=== PATIENT | male | born 1965 | race Caucasian/White ===

== ENCOUNTER 2020-03-23 11:06 | Emergency (ER) | payer BC ==
--- NOTE | 2020-03-23 12:55 | EDM.PDOC ---
ED HPI GENERAL MEDICAL PROBLEM - General Chief Complaint: Gastrointestinal Problem Stated Complaint: BLEEDING RECTUM Time Seen by Provider: 03/23/20 11:15 Source of Information: Reports: Patient History Limitations: Reports: No Limitations - History of Present Illness INITIAL COMMENTS - FREE TEXT/NARRATIVE: HISTORY AND PHYSICAL: History of present illness: Patient is a 54-year-old male who presents emergency room today with concern of a bleeding hemorrhoid that started 1 to 2 days ago. Patient states that he has issues with hemorrhoids in the past and currently he has multiple hemorrhoids at this time. 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 Patient states because of this, he has a tendency to have frequent hemorrhoids. Patient states that 1 to 2 days ago he had a hemorrhoid that "popped "and states he initially had some heavier bleeding which quickly resolved. Patient states that his had bought him [id number] hydrocortisone wipes and he used a wipe today and noticed that the bleeding started again so came to the emergency room to have this further evaluated as he felt it was more blood than usual, although states the bleeding has now nearly stopped since arriving to the ED. Patient denies fever, chills, chest pain, shortness of breath, or cough. Denies headache, neck stiff ness, change in vision, syncope, or near syncope. Denies nausea, vomiting, abdominal pain, diarrhea, constipation, or dysuria. Has not noted any blood in urine or stool. Patient has been eating and drinking appropriately. Review of systems: As per history of present illness and below otherwise all systems reviewed and negative. Past medical history: As per history of present illness and as reviewed below otherwise noncontributory. Surgical history: As per history of present illness and as reviewed below otherwise noncontributory. Social history: See social history for further information Family history: As per history of present illness and as reviewed below otherwise noncontributory. Physical exam: General: Patient is alert, oriented, and in no acute distress. Patient sitting comfortably on exam table. Vitals stable and reviewed by me. HEENT: Atraumatic, normocephalic, pupils equal and reactive bilaterally, negative for conjunctival pallor or scleral icterus, mucous membranes moist, TMs normal bilaterally, throat clear, neck supple, nontender, trachea midline. No drooling or trismus noted. No meningeal signs. No hot potato voice noted. Lungs: Clear to auscultation, breath sounds equal bilaterally, chest nontender. Heart: S1S2, regular rate and rhythm without overt murmur Abdomen: Soft, nondistended, nontender. Negative for masses or hepatosplenomegaly. Negative for costovertebral tenderness. Pelvis: Stable nontender. Genitourinary: Deferred. Rectal: Construction Teacher at bedside Soraya Perez. There are 3 obvious hemorrhoids externally, one appears partially thrombosed with pain to palpation. The smaller of the hemorrhoids is clearly visualized with a small trickle of bright red blood seen coming from the smaller hemorrhoid. Rectal tone intact. Hemoccult positive. There is also an internal hemorrhoid noted with pain. Skin: Intact, warm, dry. No lesions or rashes noted. Extremities: Left UE and left LE are drastically larger than the comparative right. This is congenital per baseline according to patient. Otherwise, Atraumatic, negative for cords or calf pain. Neurovascular unremarkable. Neuro: Awake, alert, oriented. Cranial nerves II through XII unremarkable. Cerebellum unremarkable. Motor and sensory unremarkable throughout. Exam nonfocal. Notes: Patient does have a Hemoccult positive exam but has obvious source of bleeding due to hemorrhoids. Throughout stay in ED, patient appears comfortable on exam and vitally stable. Discussed the importance for follow up with a PCP/General surgery. Signs and symptoms that would prompt return to the ED thoroughly discussed with patient. Voices understanding and is agreeable to plan of care. Denies any further quest ions or concerns at this time. Diagnostics: CBC, CMP, Hemoccult Therapeutics: None Prescription: Hydrocortisone/lidocaine topical cream Impression: Hemorrhoids, multiple Plan: 1. Apply medication to affected area as prescribed and as discussed. 2. Follow-up with a primary care provider/general surgeon as discussed. 3. You can also use Tylenol as directed for pain and discomfort. Return to the ED as needed and as discussed. Definitive disposition and diagnosis as appropriate pending reevaluation and review of above. rectal Pain Score (Numeric/FACES): 2 - Related Data Allergies Allergy/AdvReac Type Severity Reaction Status Date / Time No Known Allergies Allergy Verified 03/23/20 12:07 Home Meds: Home Meds . [No Known Home Meds] 03/23/20 [History] Past Medical History Gastrointestinal History: Reports: Hemorrhoids - Past Surgical History Other Musculoskeletal Surgeries/Procedures:: left knee surgery, left ankle surgery, left index surgery, and right 2 finger surgery Social & Family History - Tobacco Use Tobacco Use Status *Q: Never Tobacco User - Recreational Drug Use Recreational Drug Use: No ED ROS GENERAL - Review of Systems Review Of Systems: Comprehensive ROS is negative, except as noted in HPI. ED EXAM, GENERAL - Physical Exam Exam: See Below (see dictation) Course - Vital Signs Last Recorded V/S: Last Vital Signs Temp 98 F 03/23/20 12:09 Pulse 56 L 03/23/20 13:20 Resp 16 03/23/20 13:20 BP 148/93 H 03/23/20 13:20 Pulse Ox 98 03/23/20 13:20 - Orders/Labs/Meds Labs: Laboratory Tests 03/23/20 03/23/20 Range/Units 12:26 12:26 WBC 8.02 (4.0-11.0) K/uL RBC 5.32 (4.50-5.90) M/uL Hgb 16.4 (13.0-17.0) g/dL Hct 48.7 (38.0-50.0) % MCV 91.5 (80.0-98.0) fL MCH 30.8 (27.0-32.0) pg MCHC 33.7 (31.0-37.0) g/dL RDW Std Deviation 42.5 (28.0-62.0) fl RDW Coeff of Linda 13 (11.0-15.0) % Plt Count 184 (150-400) K/uL MPV 10.20 (7.40-12.00) fL Neut % (Auto) 61.7 (48.0-80.0) % Lymph % (Auto) 30.2 (16.0-40.0) % [place] % (Auto) 5.7 (0.0-15.0) % Eos % (Auto) 2.0 (0.0-7.0) % Baso % (Auto) 0.4 (0.0-1.5) % Neut # (Auto) 5.0 (1.4-5.7) K/uL Lymph # (Auto) 2.4 (0.6-2.4) K/uL [place] # (Auto) 0.5 (0.0-0.8) K/uL Eos # (Auto) 0.2 (0.0-0.7) K/uL Baso # (Auto) 0.0 (0.0-0.1) K/uL Nucleated RBC % 0.0 /100WBC Nucleated RBCs # 0 K/uL Sodium 136 (136-148) mmol/L Potassium 4.2 (3.5-5.1) mmol/L Chloride 102 (98-107) mmol/L Carbon Dioxide 28.3 (21.0-32.0) mmol/L BUN 17 (7.0-18.0) mg/dL Creatinine 0.9 (0.8-1.3) mg/dL Est Cr Clr Drug Dosing 102.99 mL/min Estimated GFR (MDRD) > 60.0 ml/min Glucose 173 H (74-106) mg/dL Calcium 9.0 (8.5-10.1) mg/dL Total Bilirubin 0.7 (0.2-1.0) mg/dL AST 9 L (15-37) IU/L ALT 18 (14-63) IU/L Alkaline Phosphatase 71 (46-116) U/L Total Protein 7.3 (6.4-8.2) g/dL Albumin 3.8 (3.4-5.0) g/dL Globulin 3.5 (2.6-4.0) g/dL Albumin/Globulin Ratio 1.1 (0.9-1.6) Departure - Departure Time of Disposition: 21:34 Disposition: Home, Self-Care 01 Clinical Impression: Hemorrhoid Qualifiers: Hemorrhoid type: unspecified Qualified Code(s): K64.9 - Unspecified hemorrhoids - Discharge Information Instructions: Hemorrhoids, [id number] Referrals: PCP,None [Primary Care Provider] - Forms: ED Department Discharge Additional Instructions: 0 the following information is given to patients seen in the emergency department who are being discharged to home. This information is to outline your options for follow-up care. We provide all patients seen in our emergency department with a follow-up referral. The need for follow-up, as well as the timing and circumstances, are variable depending upon the specifics of your emergency department visit. If you don't have a primary care physician on staff, we will provide you with a referral. We always advise you to contact your personal physician following an emergency department visit to inform them of the circumstance of the visit and for follow-up with them and/or the need for any referrals to a consulting specialist. The emergency department will also refer you to a specialist when appropriate. This referral assures that you have the opportunity for follow-up care with a specialist. All of these measure are taken in an effort to provide you with optimal care, which includes your follow-up. Under all circumstances we always encourage you to contact your private physician who remains a resource for coordinating your care. When calling for follow-up care, please make the office aware that this follow-up is from your recent emergency room visit. If for any reason you are refused follow-up, please contact the [facility] Emergency Department at and asked to speak to the emergency department charge nurse. [facility] [address] [place] [address] [id number] [address] [address] [facility] - General [facility] Professional [facility] [address] [place] [address], [address] [place] [address] 1. Apply medication to affected area as prescribed and as discussed. 2. Follow-up with a primary care provider/general surgeon as discussed. 3. You can also use Tylenol as directed for pain and discomfort. Return to the ED as needed and as discussed. Sepsis Event Note (ED) - Evaluation Sepsis Screening Result: No Definite Risk - Focused Exam Vital Signs: Vital Signs Temp Pulse Resp BP Pulse Ox 03/23/20 13:20 56 L 16 148/93 H 98 03/23/20 12:09 98 F 51 L 18 159/82 H 97
[2020-03-23 13:01] LABS: BLOOD UREA NITROGEN,BUN 17 mg/dL (7.0-18.0); CARBON DIOXIDE,CO2 28.3 mmol/L (21.0-32.0); CHLORIDE,CL 102 mmol/L (98-107); GLUCOSE RANDOM 173 mg/dL (74-106); POTASSIUM,K 4.2 mmol/L (3.5-5.1); SODIUM,NA 136 mmol/L (136-148)
== END 2020-03-23 13:22 | disposition home or self-care (01) ==
LOC: MW.ED 11:06
DX: K64.4 Residual hemorrhoidal skin tags (principal)
CPT/HCPCS: 36415; 80053; 85025; 99283

== ENCOUNTER 2021-01-23 18:44 | Inpatient (IN) | payer BC ==
[2021-01-23] MEDS ORDERED: Sodium Chloride 0.9% 2.5 ML Syringe FLUSH PRN (18:45)
[2021-01-23] MEDS ORDERED: Sodium Chloride 0.9% 10 ML Syringe FLUSH PRN (18:45)
--- NOTE | 2021-01-23 18:50 | EDM.PDOC ---
<Allen Kendrick - Last Filed: 01/23/21 18:52> ED HPI GENERAL MEDICAL PROBLEM - General Chief Complaint: Respiratory Problem Stated Complaint: EMS ARRIVAL Time Seen by Provider: 01/23/21 19:00 - History of Present Illness INITIAL COMMENTS - FREE TEXT/NARRATIVE: History of present illness: [] Patient had a dry cough for 3 or 4 days. He lost his taste a day or 2 ago. Today he suddenly got short of breath. He has had a past history of pulmonary embolus. He also has 1 leg bigger than the other with the left being larger chronically. He is not on blood thinners for years post pulmonary embolus. The patient has no fever sweats chills. His oxygen saturation was 50. He was given albuterol treatment and 100% nonrebreather oxygen and his sats came up in the 70s. He was not able to talk any complete sentence at first but now is able to talk after the albuterol treatment and oxygen. Review of systems: As per history of present illness and below otherwise all systems reviewed and negative. Past medical history: As per history of present illness and as reviewed below otherwise noncontributory. Surgical history: As per history of present illness and as reviewed below otherwise noncontribu tory. Social history: No reported history of drug or alcohol abuse. Family history: As per history of present illness and as reviewed below otherwise noncontributory. Physical exam: Constitutional -morbidly obese. Well developed, well-nourished and in no acute distress HEENT - normocephalic, no evidence of trauma - external nose and mouth normal - no mass in neck and no JVD - mucosae moist EYES - full EOM, PERRL, no icterus - no evidence of inflammation, injection, or drainage Respiratory -mild respiratory distress, equal bilateral expansion, lungs finished Cardiovascular - Regular Rhythm with S1 and S2 appreciated and no murmur, gallop or rub. GI - abdomen soft without distension or organomegaly - normal bowel sounds - no guard or rebound Musculoskeletal no gross deformity of long bones or joints - no tenderness, but there is significant edema in both lower extremities with the left leg quite a bit larger than the right. Neurologic - Alert and oriented times four - CN II-XII grossly intact - motor sensory and coordination symmetrically normal Psychiatric - appropriate mood and affect with normal thought content Hematologic - No petechiae or purpura - mucosa appropriate color and sclera not pale - normal nail bed color and refill Integument - no rash or evidence of trauma - normal turgor Diagnostics: [] Therapeutics: [] Impression: [] Plan: [] Definitive disposition and diagnosis as appropriate pending reevaluation and review of above. - Related Data Allergies Allergy/AdvReac Type Severity Reaction Status Date / Time No Known Allergies Allergy Verified 03/23/20 12:07 Home Meds: Home Meds . [No Known Home Meds] 03/23/20 [History] Past Medical History Gastrointestinal History: Reports: Hemorrhoids - Past Surgical History Other Musculoskeletal Surgeries/Procedures:: left knee surgery, left ankle surgery, left index surgery, and right 2 finger surgery ED ROS GENERAL - Review of Systems Review Of Systems: Comprehensive ROS is negative, except as noted in HPI. ED EXAM, GENERAL - Physical Exam Exam: See Below Free Text/Narrative:: My physical exam is in the HPI Course - Vital Signs Text/Narrative:: Patient will be a difficult intubation. He arrived at shift change. He has not failed BiPAP. Turned over to my partner Dr. Terry. Departure - Departure Disposition: Admitted As Inpatient 66 Clinical Impression: COVID-19 - Discharge Information Referrals: PCP,None [Primary Care Provider] - Forms: ED Department Discharge <Timothy Terry - Last Filed: 01/24/21 05:07> ED HPI GENERAL MEDICAL PROBLEM - General Source of Information: Reports: Patient, EMS History Limitations: Reports: Respiratory Distress #1 Interpretation EKG Date: 01/23/21 Time: 18:48 Rhythm: NSR Rate (Beats/Min): 127 [place]: Normal P-Wave: Present QRS: Normal ST-T: Normal QT: Normal NV/PQ Interval: 75 Comparison: NA - No Prior EKG EKG Interpretation Comments: sinus tachycardia #2 Interpretation EKG Date: 01/24/21 Time: 02:10 Rhythm: NSR Rate (Beats/Min): 95 [place]: Normal P-Wave: Present QRS: Normal ST-T: Normal QT: Normal NV/PQ Interval: 150 EKG Interpretation Comments: frequent PVCs; no acute ischemic changes Course - Vital Signs Last Recorded V/S: Last Vital Signs Temp 99.9 F 01/23/21 19:01 Pulse 87 01/24/21 03:55 Resp 32 H 01/24/21 03:55 BP 147/81 H 01/24/21 03:55 Pulse Ox 91 L 01/24/21 03:55 - Orders/Labs/Meds Orders: Active Orders 24 hr Category Date Time Status Patient Status [ADT] Routine ADT 01/24/21 05:03 Ordered Blood Glucose Check, Bedside [RC] Q1HR Care 01/24/21 05:30 Active Cardiac Monitoring [RC] . DIRECTED Care 01/23/21 18:45 Active Pulse Oximetry [RC] ASDIRECTED Care 01/23/21 18:45 Active CULTURE BLOOD [BC] Stat Lab 01/23/21 19:20 Received CULTURE BLOOD [BC] Stat Lab 01/23/21 19:36 Received GLYCOSYLATED HEMOGLOBIN,HGBA1C [CHEM] Stat Lab 01/24/21 03:42 Ordered PTT,PARTIAL THROMBOPLSTIN TIME [COAG] Stat Lab 01/24/21 06:00 Ordered Dextrose 50% in Water Med 01/23/21 19:57 Active 50 ml IVPUSH ASDIRECTED PRN Dextrose 50% in Water Med 01/24/21 01:10 Active 50 ml IVPUSH ASDIRECTED PRN Dextrose 50% in Water Med 01/24/21 03:34 Active 50 ml IVPUSH ASDIRECTED PRN Glucagon,Human Recombinant [GlucaGen] Med 01/23/21 19:57 Active 1 mg IM ASDIRECTED PRN Glucagon,Human Recombinant [GlucaGen] Med 01/24/21 01:10 Active 1 mg IM ASDIRECTED PRN Glucagon,Human Recombinant [GlucaGen] Med 01/24/21 03:34 Active 1 mg IM ASDIRECTED PRN Heparin Sodium/0.45% NaCl [Heparin 25,000 Units in 1/2 Med 01/23/21 20:00 Active NS 500 ML] 500 ml IV TITRATE Insulin Regular in 0.9 % NACL [Myxredlin in NS 100 UNIT Med 01/24/21 04:00 Active /100 ML] 100 ml IV TITRATE Sodium Chloride 0.9% [Normal Saline] 1,000 ml Med 01/23/21 21:34 Active IV .Bolus Blood Culture x2 Reflex Set [OM.PC] Stat Oth 01/23/21 19:02 Ordered Saline Lock Insert [OM.PC] Stat Oth 01/23/21 18:45 Ordered Medication Orders Dextrose/Water (50% Dextrose In Water 50 Ml Syringe) 50 ml IVPUSH ASDIRECTED PRN PRN Reason: Hypoglycemia Dextrose/Water (50% Dextrose In Water 50 Ml Syringe) 50 ml IVPUSH ASDIRECTED PRN PRN Reason: Hypoglycemia Dextrose/Water (50% Dextrose In Water 50 Ml Syringe) 50 ml IVPUSH ASDIRECTED PRN PRN Reason: Hypoglycemia Glucagon (Glucagon,Human Recombinant 1 Mg Vial) 1 mg IM ASDIRECTED PRN PRN Reason: Hypoglycemia Glucagon (Glucagon,Human Recombinant 1 Mg Vial) 1 mg IM ASDIRECTED PRN PRN Reason: Hypoglycemia Glucagon (Glucagon,Human Recombinant 1 Mg Vial) 1 mg IM ASDIRECTED PRN PRN Reason: Hypoglycemia Heparin Sodium/Sodium Chloride (Heparin 25,000 Units In 1/2 Ns 500 Ml) 500 mls @ 37.776 mls/hr IV TITRATE JOSE FRANCISCO; Protocol Last Admin: 01/23/21 21:07 Dose: 12 units/kg/hr, 37.776 mls/hr Documented by: HIWOT Cosigned by: CLAUDIO Sodium Chloride (Normal Saline) 1,000 mls @ 125 mls/hr IV .Bolus ONE Stop: 01/24/21 05:33 Last Admin: 01/23/21 21:41 Dose: 125 mls/hr Documented by: CLAUDIO Insulin Regular in 0.9 % NACL (Myxredlin In Ns 100 Unit/100 Ml) 100 mls @ 15.74 mls/hr IV TITRATE JOSE FRANCISCO; Protocol Last Admin: 01/24/21 04:24 Dose: 0.1 units/kg/hr, 15.74 mls/hr Documented by: Labs: Laboratory Tests 01/23/21 01/23/21 01/23/21 Range/Units 18:51 18:55 19:20 WBC 7.82 (4.0-11.0) K/uL RBC 5.57 (4.50-5.90) M/uL Hgb 17.3 H (13.0-17.0) g/dL Hct 47.3 (38.0-50.0) % MCV 84.9 (80.0-98.0) fL MCH 31.1 (27.0-32.0) pg MCHC 36.6 (31.0-37.0) g/dL RDW Std Deviation 39.8 (28.0-62.0) fl RDW Coeff of Linda 13 (11.0-15.0) % Plt Count 126 L (150-400) K/uL MPV 11.60 (7.40-12.00) fL Neut % (Auto) 87.0 H (48.0-80.0) % Lymph % (Auto) 9.1 L (16.0-40.0) % Morgan % (Auto) 3.8 (0.0-15.0) % Eos % (Auto) 0.0 (0.0-7.0) % Baso % (Auto) 0.1 (0.0-1.5) % Neut # (Auto) 6.8 H (1.4-5.7) K/uL Lymph # (Auto) 0.7 (0.6-2.4) K/uL Morgan # (Auto) 0.3 (0.0-0.8) K/uL Eos # (Auto) 0.0 (0.0-0.7) K/uL Baso # (Auto) 0.0 (0.0-0.1) K/uL Nucleated RBC % 0.0 /100WBC Nucleated RBCs # 0 K/uL INR APTT (18.6-31.3) SEC D-Dimer, Quantitative (0.0-0.50) mg/L FEU ABG pH 7.49 H (7.35-7.45) ABG pCO2 26 L (35-45) mmHG ABG pO2 33 L* (80-105) mmHG ABG HCO3 20 L (22-26) mEq/L ABG Total CO2 17.3 L (23-27) mmol/L ABG Base Excess -1.2 (-2.0-3.0) Sodium (136-148) mmol/L Potassium (3.5-5.1) mmol/L Chloride (98-107) mmol/L Carbon Dioxide (21.0-32.0) mmol/L BUN (7.0-18.0) mg/dL Creatinine (0.8-1.3) mg/dL Est Cr Clr Drug Dosing mL/min Estimated GFR (MDRD) ml/min Glucose (74-106) mg/dL POC Glucose (70-99) mg/dL Lactic Acid (0.4-2.0) mmol/L Calcium (8.5-10.1) mg/dL Total Bilirubin (0.2-1.0) mg/dL AST (15-37) IU/L ALT (14-63) IU/L Alkaline Phosphatase (46-116) U/L Troponin I (0.000-0.056) ng/mL C-Reactive Protein (0.00-0.90) mg/dL B-Natriuretic Peptide (<100) PG/ML Total Protein (6.4-8.2) g/dL Albumin (3.4-5.0) g/dL Globulin (2.6-4.0) g/dL Albumin/Globulin Ratio (0.9-1.6) SARS-CoV-2 RNA (JEAN PAUL) POSITIVE H (NEGATIVE) 01/23/21 01/23/21 01/23/21 Range/Units 19:20 19:20 19:20 WBC (4.0-11.0) K/uL RBC (4.50-5.90) M/uL Hgb (13.0-17.0) g/dL Hct (38.0-50.0) % MCV (80.0-98.0) fL MCH (27.0-32.0) pg MCHC (31.0-37.0) g/dL RDW Std Deviation (28.0-62.0) fl RDW Coeff of Linda (11.0-15.0) % Plt Count (150-400) K/uL MPV (7.40-12.00) fL Neut % (Auto) (48.0-80.0) % Lymph % (Auto) (16.0-40.0) % Morgan % (Auto) (0.0-15.0) % Eos % (Auto) (0.0-7.0) % Baso % (Auto) (0.0-1.5) % Neut # (Auto) (1.4-5.7) K/uL Lymph # (Auto) (0.6-2.4) K/uL Morgan # (Auto) (0.0-0.8) K/uL Eos # (Auto) (0.0-0.7) K/uL Baso # (Auto) (0.0-0.1) K/uL Nucleated RBC % /100WBC Nucleated RBCs # K/uL INR APTT (18.6-31.3) SEC D-Dimer, Quantitative (0.0-0.50) mg/L FEU ABG pH (7.35-7.45) ABG pCO2 (35-45) mmHG ABG pO2 (80-105) mmHG ABG HCO3 (22-26) mEq/L ABG Total CO2 (23-27) mmol/L ABG Base Excess (-2.0-3.0) Sodium 127 L (136-148) mmol/L Potassium 4.4 (3.5-5.1) mmol/L Chloride 90 L (98-107) mmol/L Carbon Dioxide 23.2 (21.0-32.0) mmol/L BUN 29 H (7.0-18.0) mg/dL Creatinine 1.8 H (0.8-1.3) mg/dL Est Cr Clr Drug Dosing 50.90 mL/min Estimated GFR (MDRD) 39.4 ml/min Glucose 376 H (74-106) mg/dL POC Glucose (70-99) mg/dL Lactic Acid 3.6 H* (0.4-2.0) mmol/L Calcium 8.2 L (8.5-10.1) mg/dL Total Bilirubin 0.9 (0.2-1.0) mg/dL AST 91 H (15-37) IU/L ALT 52 (14-63) IU/L Alkaline Phosphatase 63 (46-116) U/L Troponin I 0.405 H* (0.000-0.056) ng/mL C-Reactive Protein (0.00-0.90) mg/dL B-Natriuretic Peptide 174 H (<100) PG/ML Total Protein 7.0 (6.4-8.2) g/dL Albumin 2.4 L (3.4-5.0) g/dL Globulin 4.6 H (2.6-4.0) g/dL Albumin/Globulin Ratio 0.5 L (0.9-1.6) SARS-CoV-2 RNA (JEAN PAUL) (NEGATIVE) 01/23/21 01/23/21 01/23/21 Range/Units 19:20 19:20 20:45 WBC (4.0-11.0) K/uL RBC (4.50-5.90) M/uL Hgb (13.0-17.0) g/dL Hct (38.0-50.0) % MCV (80.0-98.0) fL MCH (27.0-32.0) pg MCHC (31.0-37.0) g/dL RDW Std Deviation (28.0-62.0) fl RDW Coeff of Linda (11.0-15.0) % Plt Count (150-400) K/uL MPV (7.40-12.00) fL Neut % (Auto) (48.0-80.0) % Lymph % (Auto) (16.0-40.0) % Morgan % (Auto) (0.0-15.0) % Eos % (Auto) (0.0-7.0) % Baso % (Auto) (0.0-1.5) % Neut # (Auto) (1.4-5.7) K/uL Lymph # (Auto) (0.6-2.4) K/uL Morgan # (Auto) (0.0-0.8) K/uL Eos # (Auto) (0.0-0.7) K/uL Baso # (Auto) (0.0-0.1) K/uL Nucleated RBC % /100WBC Nucleated RBCs # K/uL INR 1.38 APTT 29.8 (18.6-31.3) SEC D-Dimer, Quantitative > 35.20 H (0.0-0.50) mg/L FEU ABG pH 7.49 H (7.35-7.45) ABG pCO2 27 L (35-45) mmHG ABG pO2 55 L (80-105) mmHG ABG HCO3 21 L (22-26) mEq/L ABG Total CO2 17.5 L (23-27) mmol/L ABG Base Excess -1.0 (-2.0-3.0) Sodium (136-148) mmol/L Potassium (3.5-5.1) mmol/L Chloride (98-107) mmol/L Carbon Dioxide (21.0-32.0) mmol/L BUN (7.0-18.0) mg/dL Creatinine (0.8-1.3) mg/dL Est Cr Clr Drug Dosing mL/min Estimated GFR (MDRD) ml/min Glucose (74-106) mg/dL POC Glucose (70-99) mg/dL Lactic Acid (0.4-2.0) mmol/L Calcium (8.5-10.1) mg/dL Total Bilirubin (0.2-1.0) mg/dL AST (15-37) IU/L ALT (14-63) IU/L Alkaline Phosphatase (46-116) U/L Troponin I (0.000-0.056) ng/mL C-Reactive Protein 30.00 H (0.00-0.90) mg/dL B-Natriuretic Peptide (<100) PG/ML Total Protein (6.4-8.2) g/dL Albumin (3.4-5.0) g/dL Globulin (2.6-4.0) g/dL Albumin/Globulin Ratio (0.9-1.6) SARS-CoV-2 RNA (JEAN PAUL) (NEGATIVE) 01/23/21 01/23/21 01/23/21 Range/Units 21:07 21:44 23:40 WBC (4.0-11.0) K/uL RBC (4.50-5.90) M/uL Hgb (13.0-17.0) g/dL Hct (38.0-50.0) % MCV (80.0-98.0) fL MCH (27.0-32.0) pg MCHC (31.0-37.0) g/dL RDW Std Deviation (28.0-62.0) fl RDW Coeff of Linda (11.0-15.0) % Plt Count (150-400) K/uL MPV (7.40-12.00) fL Neut % (Auto) (48.0-80.0) % Lymph % (Auto) (16.0-40.0) % [place] % (Auto) (0.0-15.0) % Eos % (Auto) (0.0-7.0) % Baso % (Auto) (0.0-1.5) % Neut # (Auto) (1.4-5.7) K/uL Lymph # (Auto) (0.6-2.4) K/uL [place] # (Auto) (0.0-0.8) K/uL Eos # (Auto) (0.0-0.7) K/uL Baso # (Auto) (0.0-0.1) K/uL Nucleated RBC % /100WBC Nucleated RBCs # K/uL INR APTT (18.6-31.3) SEC D-Dimer, Quantitative (0.0-0.50) mg/L FEU ABG pH (7.35-7.45) ABG pCO2 (35-45) mmHG ABG pO2 (80-105) mmHG ABG HCO3 (22-26) mEq/L ABG Total CO2 (23-27) mmol/L ABG Base Excess (-2.0-3.0) Sodium (136-148) mmol/L Potassium (3.5-5.1) mmol/L Chloride (98-107) mmol/L Carbon Dioxide (21.0-32.0) mmol/L BUN (7.0-18.0) mg/dL Creatinine (0.8-1.3) mg/dL Est Cr Clr Drug Dosing mL/min Estimated GFR (MDRD) ml/min Glucose (74-106) mg/dL POC Glucose 335 H (70-99) mg/dL Lactic Acid 3.6 H* (0.4-2.0) mmol/L Calcium (8.5-10.1) mg/dL Total Bilirubin (0.2-1.0) mg/dL AST (15-37) IU/L ALT (14-63) IU/L Alkaline Phosphatase (46-116) U/L Troponin I 0.797 H* (0.000-0.056) ng/mL C-Reactive Protein (0.00-0.90) mg/dL B-Natriuretic Peptide (<100) PG/ML Total Protein (6.4-8.2) g/dL Albumin (3.4-5.0) g/dL Globulin (2.6-4.0) g/dL Albumin/Globulin Ratio (0.9-1.6) SARS-CoV-2 RNA (JEAN PAUL) (NEGATIVE) 01/24/21 01/24/21 01/24/21 Range/Units 00:33 01:10 01:22 WBC (4.0-11.0) K/uL RBC (4.50-5.90) M/uL Hgb (13.0-17.0) g/dL Hct (38.0-50.0) % MCV (80.0-98.0) fL MCH (27.0-32.0) pg MCHC (31.0-37.0) g/dL RDW Std Deviation (28.0-62.0) fl RDW Coeff of Linda (11.0-15.0) % Plt Count (150-400) K/uL MPV (7.40-12.00) fL Neut % (Auto) (48.0-80.0) % Lymph % (Auto) (16.0-40.0) % Morgan % (Auto) (0.0-15.0) % Eos % (Auto) (0.0-7.0) % Baso % (Auto) (0.0-1.5) % Neut # (Auto) (1.4-5.7) K/uL Lymph # (Auto) (0.6-2.4) K/uL Morgan # (Auto) (0.0-0.8) K/uL Eos # (Auto) (0.0-0.7) K/uL Baso # (Auto) (0.0-0.1) K/uL Nucleated RBC % /100WBC Nucleated RBCs # K/uL INR APTT 62.7 H (18.6-31.3) SEC D-Dimer, Quantitative (0.0-0.50) mg/L FEU ABG pH 7.41 (7.35-7.45) ABG pCO2 33 L (35-45) mmHG ABG pO2 67 L (80-105) mmHG ABG HCO3 21 L (22-26) mEq/L ABG Total CO2 18.0 L (23-27) mmol/L ABG Base Excess -2.9 L (-2.0-3.0) Sodium (136-148) mmol/L Potassium (3.5-5.1) mmol/L Chloride (98-107) mmol/L Carbon Dioxide (21.0-32.0) mmol/L BUN (7.0-18.0) mg/dL Creatinine (0.8-1.3) mg/dL Est Cr Clr Drug Dosing mL/min Estimated GFR (MDRD) ml/min Glucose (74-106) mg/dL POC Glucose 397 H (70-99) mg/dL Lactic Acid (0.4-2.0) mmol/L Calcium (8.5-10.1) mg/dL Total Bilirubin (0.2-1.0) mg/dL AST (15-37) IU/L ALT (14-63) IU/L Alkaline Phosphatase (46-116) U/L Troponin I (0.000-0.056) ng/mL C-Reactive Protein (0.00-0.90) mg/dL B-Natriuretic Peptide (<100) PG/ML Total Protein (6.4-8.2) g/dL Albumin (3.4-5.0) g/dL Globulin (2.6-4.0) g/dL Albumin/Globulin Ratio (0.9-1.6) SARS-CoV-2 RNA (JEAN APUL) (NEGATIVE) 01/24/21 01/24/21 01/24/21 Range/Units 02:07 02:57 04:26 WBC (4.0-11.0) K/uL RBC (4.50-5.90) M/uL Hgb (13.0-17.0) g/dL Hct (38.0-50.0) % MCV (80.0-98.0) fL MCH (27.0-32.0) pg MCHC (31.0-37.0) g/dL RDW Std Deviation (28.0-62.0) fl RDW Coeff of Linda (11.0-15.0) % Plt Count (150-400) K/uL MPV (7.40-12.00) fL Neut % (Auto) (48.0-80.0) % Lymph % (Auto) (16.0-40.0) % Morgan % (Auto) (0.0-15.0) % Eos % (Auto) (0.0-7.0) % Baso % (Auto) (0.0-1.5) % Neut # (Auto) (1.4-5.7) K/uL Lymph # (Auto) (0.6-2.4) K/uL Morgan # (Auto) (0.0-0.8) K/uL Eos # (Auto) (0.0-0.7) K/uL Baso # (Auto) (0.0-0.1) K/uL Nucleated RBC % /100WBC Nucleated RBCs # K/uL INR APTT (18.6-31.3) SEC D-Dimer, Quantitative (0.0-0.50) mg/L FEU ABG pH (7.35-7.45) ABG pCO2 (35-45) mmHG ABG pO2 (80-105) mmHG ABG HCO3 (22-26) mEq/L ABG Total CO2 (23-27) mmol/L ABG Base Excess (-2.0-3.0) Sodium 127 L (136-148) mmol/L Potassium 4.8 (3.5-5.1) mmol/L Chloride 91 L (98-107) mmol/L Carbon Dioxide 20.0 L (21.0-32.0) mmol/L BUN 40 H (7.0-18.0) mg/dL Creatinine 2.2 H (0.8-1.3) mg/dL Est Cr Clr Drug Dosing 41.64 mL/min Estimated GFR (MDRD) 31.2 ml/min Glucose 540 H* (74-106) mg/dL POC Glucose 424 H* 491 H* (70-99) mg/dL Lactic Acid (0.4-2.0) mmol/L Calcium 8.0 L (8.5-10.1) mg/dL Total Bilirubin (0.2-1.0) mg/dL AST (15-37) IU/L ALT (14-63) IU/L Alkaline Phosphatase (46-116) U/L Troponin I 0.845 H* (0.000-0.056) ng/mL C-Reactive Protein (0.00-0.90) mg/dL B-Natriuretic Peptide (<100) PG/ML Total Protein (6.4-8.2) g/dL Albumin (3.4-5.0) g/dL Globulin (2.6-4.0) g/dL Albumin/Globulin Ratio (0.9-1.6) SARS-CoV-2 RNA (JEAN PAUL) (NEGATIVE) Meds: Medications Generic Name Dose Route Start Last Admin Trade Name Freq PRN Reason Stop Dose Admin Dextrose/Water 50 ml 01/23/21 19:57 50% Dextrose In Water 50 Ml Syringe IVPUSH ASDIRECTED PRN Hypoglycemia Dextrose/Water 50 ml 01/24/21 01:10 50% Dextrose In Water 50 Ml Syringe IVPUSH ASDIRECTED PRN Hypoglycemia Dextrose/Water 50 ml 01/24/21 03:34 50% Dextrose In Water 50 Ml Syringe IVPUSH ASDIRECTED PRN Hypoglycemia Glucagon 1 mg 01/23/21 19:57 Glucagon,Human Recombinant 1 Mg Vial IM ASDIRECTED PRN Hypoglycemia Glucagon 1 mg 01/24/21 01:10 Glucagon,Human Recombinant 1 Mg Vial IM ASDIRECTED PRN Hypoglycemia Glucagon 1 mg 01/24/21 03:34 Glucagon,Human Recombinant 1 Mg Vial IM ASDIRECTED PRN Hypoglycemia Heparin Sodium/Sodium Chloride 500 mls @ 37.776 mls/hr 01/23/21 20:00 01/23/21 21:07 Heparin 25,000 Units In 1/2 Ns 500 Ml IV 12 units/kg/hr TITRATE JOSE FRANCISCO 37.776 mls/hr Administration Protocol 12 UNITS/KG/HR Sodium Chloride 1,000 mls @ 125 mls/hr 01/23/21 21:34 01/23/21 21:41 Normal Saline IV 01/24/21 05:33 125 mls/hr .Bolus ONE Administration Insulin Regular in 0.9 % NACL 100 mls @ 15.74 mls/hr 01/24/21 04:00 01/24/21 04:24 Myxredlin In Ns 100 Unit/100 Ml IV 0.1 units/kg/hr TITRATE JOSE FRANCISCO 15.74 mls/hr Administration Protocol 0.1 UNITS/KG/HR Discontinued Medications Generic Name Dose Route Start Last Admin Trade Name Freq PRN Reason Stop Dose Admin Aspirin 324 mg 01/23/21 19:57 01/23/21 20:20 Aspirin 81 Mg Tab.Chew PO 01/23/21 19:58 324 mg ONETIME ONE Administration Dexamethasone 6 mg 01/23/21 19:58 01/23/21 20:52 Dexamethasone 4 Mg/Ml Sdv IVPUSH 01/23/21 19:59 6 mg ONETIME ONE Administration Heparin Sodium (Porcine) 4,000 units 01/23/21 19:57 01/23/21 20:53 Heparin Sodium 5,000 Units/Ml Vial IVPUSH 01/23/21 19:58 4,000 units .BOLUS ONE Administration Protocol Remdesivir 200 mg/ Sodium 250 mls @ 250 mls/hr 01/23/21 19:58 01/23/21 20:57 Chloride IV 01/23/21 19:59 250 mls/hr ONETIME ONE Administration Tocilizumab 800 mg/ Sodium 140 mls @ 140 mls/hr 01/24/21 03:57 Chloride IV 01/24/21 03:58 ONETIME ONE Insulin Human Regular 5 unit 01/23/21 19:57 01/23/21 21:07 Insulin Regular, Human 100 Units/Ml 10 Ml Vial IVPUSH 01/23/21 19:58 5 unit ONETIME ONE Administration Protocol Insulin Human Regular 5 unit 01/24/21 01:10 01/24/21 01:15 Insulin Regular, Human 100 Units/Ml 10 Ml Vial IVPUSH 01/24/21 01:11 5 units ONETIME ONE Administration Protocol Insulin Human Regular 10 unit 01/24/21 03:34 01/24/21 03:44 Insulin Regular, Human 100 Units/Ml 10 Ml Vial IVPUSH 01/24/21 03:35 10 units ONETIME ONE Administration Protocol Iopamidol 50 ml 01/24/21 01:52 01/24/21 01:54 Iopamidol 755 Mg/Ml 500 Ml Multipack Bottle IVPUSH 01/24/21 01:53 50 ml ONETIME STA Administration Sodium Chloride 10 ml 01/23/21 18:45 01/23/21 19:35 Sodium Chloride 0.9% 10 Ml Syringe FLUSH 10 ml ASDIRECTED PRN Administration Keep Vein Open Sodium Chloride 2.5 ml 01/23/21 18:45 01/23/21 19:35 Sodium Chloride 0.9% 2.5 Ml Syringe FLUSH 2.5 ml ASDIRECTED PRN Administration Keep Vein Open - Re-Assessments/Exams Free Text/Narrative Re-Assessment/Exam: 01/23/21 20:22 Labs show Covid. X-ray shows Covid pneumonia. Labs show acute kidney injury, significantly elevated troponin. Likely demand ischemia however aspirin and heparin ordered. We will follow-up CTA chest to evaluate for possible pulmonary embolism and to better assess degree of Covid pneumonia. Decadron, remdesivir ordered. Insulin ordered for hyperglycemia. Patient states history of "borderline" diabetes. Patient saturating 85-90% on BiPAP settings 04/09, RR 20, FiO2 100% 01/23/21 20:36 Patient is unable to tolerate nonrebreather without desaturations into the low 70s. We cannot get a CT scan on BiPAP as it cannot be hooked up in the CT room at this time. Patient will be on heparin drip for possible NSTEMI versus demand ischemia so will be adequately treated if there is pulmonary embolism. 01/23/21 2259: [facility] not have beds available 2300: [facility] does not have COVID ICU beds available 2305: [facility] does not have beds available Will reach out to transfer center for assistance in finding a bed for this patient 01/23/21 21:12 [facility] does have beds but is not accepting patients [place] of [place] 01/23[facility]21 [facility]'t [facility] available 01/24/21 01:23 We are able to change out the BiPAP machine to a new machine with a portable O2 tank so that patient can go for CTA imaging of the chest. I did get a repeat ABG; results pending. I have ordered a repeat troponin for 3AM to check for elevating troponin. Patient remains clinically stable, saturating mid 90s on BiPAP, HR in the low 100s. He is mentating well. 01/24/21 01:27 Repeat ABG does show improvement in oxygenation after several hours of BiPAP. Will f/u CTA results and reassess. I did speak with the hospitalist here who notes that we may be able to keep patient in our ICU pending CTA imaging and E- ICU consultation. 01/24/21 02:32 CTA imaging is negative for large pulmonary embolism or segmental pulmonary embolism. Does reveal diffuse groundglass opacities consistent with severe COVID-19 pneumonia. Will follow up repeat labs at 3 AM to check renal function and troponin. Will obtain E-ICU consultation after labs 01/24/21 03:36 Glucose still markedly elevated. Additional 10units insulin ordered with frequent repeat accuchecks. Troponin mildly rising. Will consult E-ICU physician for disposition recommends. Patient remains on BiPAP settings 14/6 rate of 14 and FiO2 of 100% satting low 90s. 01/24/21 03:52 I spoke with E-ICU consultation physician who recommends starting insulin drip for tight glucose control. He does not recommend intubation given the current clinical picture. Recommends considering intubation if patient becomes fatigued to the point of not tolerating BiPAP or becomes non-compliant with BiPAP. Will start insulin drip per these recommendations. Will reach out to hospitalist for potential admission to ICU level care at our hospital given no bed availability. 01/24/21 03:59 Tocilizumab 800mg ordered. 01/24/21 04:13 I did update patient's Guerda at [phone]. She would like to be updated with any critical status changes or if patient would need to be intubated. 01/24/21 04:16 We do not have tocilizumab available at this time; new shipment expected early next week. The pharmacist extension division director notes that there is an alternative available and she will be here in the morning to mix it. 01/24/21 04:19 Patient satting 88%; BiPAP adjusted to 16/6, rate 14, FiO2 100% 01/24/21 05:[address] Pizarro who will accept patient to ICU level of care. This patient does have a high probability of clinical deterioration and may ultimately require transfer to higher level of care, but given there is no ICU availability in the entire state and surrounding area and transfer center has called to inform there is no anticipation of bed availability, we will keep patient in our ICU. Departure - Departure Time of Disposition: 05:06 Condition: Serious Critical Care Note - Critical Care Note Total Time (mins): 61 Sepsis Event Note (ED) - Focused Exam Vital Signs: Vital Signs Temp Pulse Resp BP BP BP Pulse Ox 01/24/21 03:55 87 32 H 147/81 H 91 L 01/24/21 02:22 89 33 H 131/74 89 L 01/24/21 01:18 94 34 H 139/105 H 91 L 01/24/21 00:08 102 H 32 H 115/82 94 L 01/23/21 23:26 98 36 H 85/60 L 94 L 01/23/21 21:51 108 H 34 H 105/72 93 L 01/23/21 21:11 131 H 20 139/97 H 91 L 01/23/21 19:45 117 H 36 H 117/88 92 L 01/23/21 19:01 99.9 F 116 H 35 H 167/99 H 95 01/23/21 18:45 127 H 42 H 137/104 H 50 L - My Orders Last 24 Hours: My Active Orders 01/23/21 19:02 Blood Culture x2 Reflex Set [OM.PC] Stat 01/23/21 19:20 CULTURE BLOOD [BC] Stat 01/23/21 19:36 CULTURE BLOOD [BC] Stat 01/23/21 19:57 Dextrose 50% in Water 50 ml IVPUSH ASDIRECTED PRN Glucagon,Human Recombinant [GlucaGen] 1 mg IM ASDIRECTED PRN 01/23/21 20:00 Heparin Sodium/0.45% NaCl [Heparin 25,000 Units in 1/2 NS 500 ML] 500 ml IV TITRATE 01/23/21 21:34 Sodium Chloride 0.9% [Normal Saline] 1,000 ml IV .Bolus 01/24/21 01:10 Dextrose 50% in Water 50 ml IVPUSH ASDIRECTED PRN Glucagon,Human Recombinant [GlucaGen] 1 mg IM ASDIRECTED PRN 01/24/21 03:34 Dextrose 50% in Water 50 ml IVPUSH ASDIRECTED PRN Glucagon,Human Recombinant [GlucaGen] 1 mg IM ASDIRECTED PRN 01/24/21 03:42 GLYCOSYLATED HEMOGLOBIN,HGBA1C [CHEM] Stat 01/24/21 04:00 Insulin Regular in 0.9 % NACL [Myxredlin in NS 100 UNIT/100 ML] 100 ml IV TITRATE 01/24/21 05:03 Patient Status [ADT] Routine 01/24/21 05:30 Blood Glucose Check, Bedside [RC] Q1HR 01/24/21 06:00 PTT,PARTIAL THROMBOPLSTIN TIME [COAG] Stat - Assessment/Plan Last 24 Hours: My Active Orders 01/23/21 19:02 Blood Culture x2 Reflex Set [OM.PC] Stat 01/23/21 19:20 CULTURE BLOOD [BC] Stat 01/23/21 19:36 CULTURE BLOOD [BC] Stat 01/23/21 19:57 Dextrose 50% in Water 50 ml IVPUSH ASDIRECTED PRN Glucagon,Human Recombinant [GlucaGen] 1 mg IM ASDIRECTED PRN 01/23/21 20:00 Heparin Sodium/0.45% NaCl [Heparin 25,000 Units in 1/2 NS 500 ML] 500 ml IV TITRATE 01/23/21 21:34 Sodium Chloride 0.9% [Normal Saline] 1,000 ml IV .Bolus 01/24/21 01:10 Dextrose 50% in Water 50 ml IVPUSH ASDIRECTED PRN Glucagon,Human Recombinant [GlucaGen] 1 mg IM ASDIRECTED PRN 01/24/21 03:34 Dextrose 50% in Water 50 ml IVPUSH ASDIRECTED PRN Glucagon,Human Recombinant [GlucaGen] 1 mg IM ASDIRECTED PRN 01/24/21 03:42 GLYCOSYLATED HEMOGLOBIN,HGBA1C [CHEM] Stat 01/24/21 04:00 Insulin Regular in 0.9 % NACL [Myxredlin in NS 100 UNIT/100 ML] 100 ml IV TITRATE 01/24/21 05:03 Patient Status [ADT] Routine 01/24/21 05:30 Blood Glucose Check, Bedside [RC] Q1HR 01/24/21 06:00 PTT,PARTIAL THROMBOPLSTIN TIME [COAG] Stat
[2021-01-23 19:49] LABS: CARBON DIOXIDE,CO2 23.2 mmol/L (21.0-32.0); POTASSIUM,K 4.4 mmol/L (3.5-5.1)
[2021-01-23] MEDS ORDERED: Heparin Sodium 5,000 Units/ML Vial IVPUSH ONE (19:57)
[2021-01-23] MEDS ORDERED: Glucagon,Human Recombinant 1 MG Vial IM PRN (19:57)
[2021-01-23] MEDS ORDERED: 50% Dextrose in Water 50 ML Syringe IVPUSH PRN (19:57)
[2021-01-23] MEDS ORDERED: Aspirin 81 MG Tab.Chew PO ONE (19:57)
[2021-01-23] MEDS ORDERED: Insulin Regular, Human 100 Units/ML 10 ML Vial IVPUSH ONE (19:57)
--- NOTE | 2021-01-23 19:57 | CR ---
INDICATION: Dyspnea. TECHNIQUE: Portable chest. IMPRESSION: No comparison. Mild cardiac enlargement. Left cardiac border somewhat indistinct but possible skin fold projecting over the mid left lung base. Diffuse lung disease pattern interstitial with central bronchial wall thickening. Possible vascular congestion. Left atrium appears moderately enlarged with widening of the dwayne. Correlate with any known atrial fibrillation or congestive heart failure. No dense consolidation, large volume pleural effusion, or pneumothorax. Dictated by Oscar Lawrence MD @ 01/23/2021 7:56:20 PM (Electronically Signed)
[2021-01-23] MEDS ORDERED: REMDESIVIR 200 MG in Sodium Chloride 0.9% 250 ML IV ONE (19:58)
[2021-01-23] MEDS ORDERED: Dexamethasone 4 MG/ML SDV IVPUSH ONE (19:58)
[2021-01-23] MEDS: Heparin Sodium/0.45% NaCl 500 ML IV SCH (21:07)
[2021-01-23] MEDS ORDERED: Sodium Chloride 0.9% 1,000 ML IV ONE (21:34)
[2021-01-24] MEDS ORDERED: Glucagon,Human Recombinant 1 MG Vial IM PRN ×2 (01:10→03:34)
[2021-01-24] MEDS ORDERED: 50% Dextrose in Water 50 ML Syringe IVPUSH PRN ×2 (01:10→03:34)
[2021-01-24] MEDS ORDERED: Insulin Regular, Human 100 Units/ML 10 ML Vial IVPUSH ONE ×2 (01:10→03:34)
[2021-01-24] MEDS ORDERED: Iopamidol 755 MG/ML 500 ML Multipack Bottle IVPUSH STA (01:52)
--- NOTE | 2021-01-24 02:31 | CT ---
INDICATION: Hypoxia, COVID TECHNIQUE: CT chest pulmonary PE protocol acquired with 50 cc Isovue 370 IV contrast. COMPARISON: Chest radiograph January 23, 2021 FINDINGS: Cardiovascular structures: Limited study due to patient motion. No large pulmonary embolus within the main or segmental pulmonary arteries. It is difficult to evaluate the subsegmental branches. Cardiomegaly. No sign of aneurysm or dissection in the thoracic aorta. Mediastinum and majo: No mass or adenopathy. Lungs: Diffuse ground-glass opacities throughout the lungs. Pleura and pericardium: No effusions. Chest wall and axilla: No mass or adenopathy. Upper abdomen: Hepatic steatosis. Bones: No significant findings. IMPRESSION: Limited study due to patient motion. No large pulmonary embolus within the main or segmental pulmonary arteries. It is difficult to evaluate the subsegmental branches and a subsegmental pulmonary embolism cannot be excluded with this exam. Diffuse ground-glass opacities throughout the lungs consistent with COVID-19 pneumonia. Cardiomegaly. Hepatic steatosis. Please note that all CT scans at this facility use dose modulation, iterative reconstruction, and/or weight-based dosing when appropriate to reduce radiation dose to as low as reasonably achievable. Dictated by Arianne Rocha MD @ 01/24/2021 2:30:40 AM (Electronically Signed)
[2021-01-24 03:32] LABS: POTASSIUM,K 4.8 mmol/L (3.5-5.1)
[2021-01-24] MEDS ORDERED: Tocilizumab 800 MG in Sodium Chloride 0.9% 100 ML IV ONE (03:57)
[2021-01-24] MEDS ORDERED: Insulin Regular in 0.9 % NACL 100 ML IV SCH (04:00)
[2021-01-24] MEDS: Insulin Regular in 0.9 % NACL 100 ML IV SCH ×2 (06:20→15:26)
--- NOTE | 2021-01-24 07:34 | PCM.HP.2 ---
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 Upon interview with the patient today he says he has had a dry cough for the past 5 days, loss of taste and smell, and 2 days ago he suddenly became short of breath and had increased respiratory difficulty. Upon entry to the hospital he had a O2 saturation of 50% and was given albuterol with 100% nonrebreather O2 mask and went up to 70%. When speaking to the patient he responds in short sentences due to his respiratory complaints. He was placed on BiPAP and has had a minute ventilation between 40-50 with a tidal volume of 1.2. His condition has deteriorated and as a result eICU physician Dr. Doran was consulted and discussions happened whether this patient would need to be intubated. The decision to intubate will depend on the patient's next ABG, clinical status, and bed availability. Discussion about his baricitinib was also made and we have discontinued it for the meantime. On CBC, white blood cells are 7.82, hemoglobin is 17.3, hematocrit is 47.3, and platelets are 126. On CMP, sodium is 127, potassium is 4.4, chloride is 90, carbon dioxide is 23.2, BUN is 29, creatinine is 1.8, lactic acid is 3.6 Three different troponin readings were elevated, 0.405, 0.845, 0.904 BNP increased at 174 On chest x-ray, COVID-19 pneumonia was seen On EKG, patient has normal sinus rhythm In the emergency department, the patient had 2 blood cultures drawn and sent, was put on telemetry, had PT and PTT sent, hemoglobin A1c was checked, was given a normal saline bolus of 1 L, was put on heparin 25,000 units in half normal saline, was given glucagen 1 mg 3 times, was given Novolin R 5 units twice and then 10 units once, patient was also put on an insulin drip in normal saline of 100 units / 100 mL. - Related Data Allergies/Adverse Reactions: Allergies Allergy/AdvReac Type Severity Reaction Status Date / Time No Known Allergies Allergy Verified 03/23/20 12:07 Home Medications: Home Meds . [No Known Home Meds] 03/23/20 [History] Past Medical History HEENT History: Reports: None Cardiovascular History: Reports: None Respiratory History: Reports: None Gastrointestinal History: Reports: Hemorrhoids Genitourinary History: Reports: None Musculoskeletal History: Reports: None Neurological History: Reports: None Psychiatric History: Reports: None Endocrine/Metabolic History: Reports: None Hematologic History: Reports: None Immunologic History: Reports: None Oncologic (Cancer) History: Reports: None Dermatologic History: Reports: None - Infectious Disease History Infectious Disease History: Reports: None, Herpes, Other (See Below) Other Infectious Disease History: Covid 19 - Past Surgical History Head Surgeries/Procedures: Reports: None HEENT Surgical History: Reports: None Cardiovascular Surgical History: Reports: None Respiratory Surgical History: Reports: None GI Surgical History: Reports: None Male Surgical History: Reports: None Endocrine Surgical History: Reports: None Neurological Surgical History: Reports: None Musculoskeletal Surgical History: Reports: Other (See Below) Other Musculoskeletal Surgeries/Procedures:: left knee surgery, left ankle surgery, left index surgery, and right 2 finger surgery Oncologic Surgical History: Reports: None Dermatological Surgical History: Reports: None Social & Family History - Family History Family Medical History: Unobtainable - Tobacco Use Tobacco Use Status *Q: Never Tobacco User Second Hand Smoke Exposure: No - Caffeine Use Caffeine Use: Reports: None - Recreational Drug Use Recreational Drug Use: No H&P Review of Systems - Review of Systems: Review Of Systems: See Below General: Reports: Weakness, Fatigue. Denies: Fever, Chills HEENT: Denies: Headaches, Sore Throat Pulmonary: Reports: Shortness of Breath, Wheezing, Cough, Sputum Cardiovascular: Reports: Dyspnea on Exertion. Denies: Chest Pain, Palpitations Gastrointestinal: Reports: Constipation. Denies: Abdominal Pain, Diarrhea Genitourinary: Denies: Dysuria, Frequency Neurological: Denies: Confusion, Dizziness Exam - Exam Exam: See Below - Vital Signs Vital Signs: Last Vital Signs Temp 99.9 F 01/23/21 19:01 Pulse 87 01/24/21 03:55 Resp 32 H 11/05/21 03:55 BP 147/81 H 01/24/21 03:55 Pulse Ox 91 L 01/24/21 03:55 Weight: 358 lb 11.2 oz - Exam General: Alert, Oriented, Moderate Distress HEENT: Other (Dry mucous membranes) Neck: Trachea Midline. No: Lymphadenopathy Lungs: Other (Patient is on BiPAP) Cardiovascular: Regular Rate, Regular Rhythm GI/Abdominal Exam: Normal Bowel Sounds, Soft, Non-Tender Extremities: Other (Left leg is considerably larger than the right with respect to edema, both legs are swollen) - Patient Data Lab Results Last 24 hrs: Laboratory Results - last 24 hr 01/23/21 01/23/21 01/23/21 Range/Units 18:51 18:55 19:20 WBC 7.82 (4.0-11.0) K/uL RBC 5.57 (4.50-5.90) M/uL Hgb 17.3 H (13.0-17.0) g/dL Hct 47.3 (38.0-50.0) % MCV 84.9 (80.0-98.0) fL MCH 31.1 (27.0-32.0) pg MCHC 36.6 (31.0-37.0) g/dL RDW Std Deviation 39.8 (28.0-62.0) fl RDW Coeff of Linda 13 (11.0-15.0) % Plt Count 126 L (150-400) K/uL MPV 11.60 (7.40-12.00) fL Neut % (Auto) 87.0 H (48.0-80.0) % Lymph % (Auto) 9.1 L (16.0-40.0) % Christian % (Auto) 3.8 (0.0-15.0) % Eos % (Auto) 0.0 (0.0-7.0) % Baso % (Auto) 0.1 (0.0-1.5) % Neut # (Auto) 6.8 H (1.4-5.7) K/uL Lymph # (Auto) 0.7 (0.6-2.4) K/uL Christian # (Auto) 0.3 (0.0-0.8) K/uL Eos # (Auto) 0.0 (0.0-0.7) K/uL Baso # (Auto) 0.0 (0.0-0.1) K/uL Nucleated RBC % 0.0 /100WBC Nucleated RBCs # 0 K/uL INR APTT (18.6-31.3) SEC D-Dimer, Quantitative (0.0-0.50) mg/L FEU ABG pH 7.49 H (7.35-7.45) ABG pCO2 26 L (35-45) mmHG ABG pO2 33 L* (80-105) mmHG ABG HCO3 20 L (22-26) mEq/L ABG Total CO2 17.3 L (23-27) mmol/L ABG Base Excess -1.2 (-2.0-3.0) Sodium (136-148) mmol/L Potassium (3.5-5.1) mmol/L Chloride (98-107) mmol/L Carbon Dioxide (21.0-32.0) mmol/L BUN (7.0-18.0) mg/dL Creatinine (0.8-1.3) mg/dL Est Cr Clr Drug Dosing mL/min Estimated GFR (MDRD) ml/min Glucose (74-106) mg/dL POC Glucose (70-99) mg/dL Hemoglobin A1c (4.5 - 6.2) % Lactic Acid (0.4-2.0) mmol/L Calcium (8.5-10.1) mg/dL Total Bilirubin (0.2-1.0) mg/dL AST (15-37) IU/L ALT (14-63) IU/L Alkaline Phosphatase (46-116) U/L Troponin I (0.000-0.056) ng/mL C-Reactive Protein (0.00-0.90) mg/dL B-Natriuretic Peptide (<100) PG/ML Total Protein (6.4-8.2) g/dL Albumin (3.4-5.0) g/dL Globulin (2.6-4.0) g/dL Albumin/Globulin Ratio (0.9-1.6) SARS-CoV-2 RNA (JEAN PAUL) POSITIVE H (NEGATIVE) 01/23/21 01/23/21 01/23/21 Range/Units 19:20 19:20 19:20 WBC (4.0-11.0) K/uL RBC (4.50-5.90) M/uL Hgb (13.0-17.0) g/dL Hct (38.0-50.0) % MCV (80.0-98.0) fL MCH (27.0-32.0) pg MCHC (31.0-37.0) g/dL RDW Std Deviation (28.0-62.0) fl RDW Coeff of Linda (11.0-15.0) % Plt Count (150-400) K/uL MPV (7.40-12.00) fL Neut % (Auto) (48.0-80.0) % Lymph % (Auto) (16.0-40.0) % Christian % (Auto) (0.0-15.0) % Eos % (Auto) (0.0-7.0) % Baso % (Auto) (0.0-1.5) % Neut # (Auto) (1.4-5.7) K/uL Lymph # (Auto) (0.6-2.4) K/uL Christian # (Auto) (0.0-0.8) K/uL Eos # (Auto) (0.0-0.7) K/uL Baso # (Auto) (0.0-0.1) K/uL Nucleated RBC % /100WBC Nucleated RBCs # K/uL INR APTT (18.6-31.3) SEC D-Dimer, Quantitative (0.0-0.50) mg/L FEU ABG pH (7.35-7.45) ABG pCO2 (35-45) mmHG ABG pO2 (80-105) mmHG ABG HCO3 (22-26) mEq/L ABG Total CO2 (23-27) mmol/L ABG Base Excess (-2.0-3.0) Sodium 127 L (136-148) mmol/L Potassium 4.4 (3.5-5.1) mmol/L Chloride 90 L (98-107) mmol/L Carbon Dioxide 23.2 (21.0-32.0) mmol/L BUN 29 H (7.0-18.0) mg/dL Creatinine 1.8 H (0.8-1.3) mg/dL Est Cr Clr Drug Dosing 50.90 mL/min Estimated GFR (MDRD) 39.4 ml/min Glucose 376 H (74-106) mg/dL POC Glucose (70-99) mg/dL Hemoglobin A1c (4.5 - 6.2) % Lactic Acid 3.6 H* (0.4-2.0) mmol/L Calcium 8.2 L (8.5-10.1) mg/dL Total Bilirubin 0.9 (0.2-1.0) mg/dL AST 91 H (15-37) IU/L ALT 52 (14-63) IU/L Alkaline Phosphatase 63 (46-116) U/L Troponin I 0.405 H* (0.000-0.056) ng/mL C-Reactive Protein (0.00-0.90) mg/dL B-Natriuretic Peptide 174 H (<100) PG/ML Total Protein 7.0 (6.4-8.2) g/dL Albumin 2.4 L (3.4-5.0) g/dL Globulin 4.6 H (2.6-4.0) g/dL Albumin/Globulin Ratio 0.5 L (0.9-1.6) SARS-CoV-2 RNA (JEAN PAUL) (NEGATIVE) 01/23/21 01/23/21 01/23/21 Range/Units 19:20 19:20 20:45 WBC (4.0-11.0) K/uL RBC (4.50-5.90) M/uL Hgb (13.0-17.0) g/dL Hct (38.0-50.0) % MCV (80.0-98.0) fL MCH (27.0-32.0) pg MCHC (31.0-37.0) g/dL RDW Std Deviation (28.0-62.0) fl RDW Coeff of Linda (11.0-15.0) % Plt Count (150-400) K/uL MPV (7.40-12.00) fL Neut % (Auto) (48.0-80.0) % Lymph % (Auto) (16.0-40.0) % Christian % (Auto) (0.0-15.0) % Eos % (Auto) (0.0-7.0) % Baso % (Auto) (0.0-1.5) % Neut # (Auto) (1.4-5.7) K/uL Lymph # (Auto) (0.6-2.4) K/uL Christian # (Auto) (0.0-0.8) K/uL Eos # (Auto) (0.0-0.7) K/uL Baso # (Auto) (0.0-0.1) K/uL Nucleated RBC % /100WBC Nucleated RBCs # K/uL INR 1.38 APTT 29.8 (18.6-31.3) SEC D-Dimer, Quantitative > 35.20 H (0.0-0.50) mg/L FEU ABG pH 7.49 H (7.35-7.45) ABG pCO2 27 L (35-45) mmHG ABG pO2 55 L (80-105) mmHG ABG HCO3 21 L (22-26) mEq/L ABG Total CO2 17.5 L (23-27) mmol/L ABG Base Excess -1.0 (-2.0-3.0) Sodium (136-148) mmol/L Potassium (3.5-5.1) mmol/L Chloride (98-107) mmol/L Carbon Dioxide (21.0-32.0) mmol/L BUN (7.0-18.0) mg/dL Creatinine (0.8-1.3) mg/dL Est Cr Clr Drug Dosing mL/min Estimated GFR (MDRD) ml/min Glucose (74-106) mg/dL POC Glucose (70-99) mg/dL Hemoglobin A1c (4.5 - 6.2) % Lactic Acid (0.4-2.0) mmol/L Calcium (8.5-10.1) mg/dL Total Bilirubin (0.2-1.0) mg/dL AST (15-37) IU/L ALT (14-63) IU/L Alkaline Phosphatase (46-116) U/L Troponin I (0.000-0.056) ng/mL C-Reactive Protein 30.00 H (0.00-0.90) mg/dL B-Natriuretic Peptide (<100) PG/ML Total Protein (6.4-8.2) g/dL Albumin (3.4-5.0) g/dL Globulin (2.6-4.0) g/dL Albumin/Globulin Ratio (0.9-1.6) SARS-CoV-2 RNA (JEAN PAUL) (NEGATIVE) 01/23/21 01/23/21 01/23/21 Range/Units 21:07 21:44 23:40 WBC (4.0-11.0) K/uL RBC (4.50-5.90) M/uL Hgb (13.0-17.0) g/dL Hct (38.0-50.0) % MCV (80.0-98.0) fL MCH (27.0-32.0) pg MCHC (31.0-37.0) g/dL RDW Std Deviation (28.0-62.0) fl RDW Coeff of Linda (11.0-15.0) % Plt Count (150-400) K/uL MPV (7.40-12.00) fL Neut % (Auto) (48.0-80.0) % Lymph % (Auto) (16.0-40.0) % Christian % (Auto) (0.0-15.0) % Eos % (Auto) (0.0-7.0) % Baso % (Auto) (0.0-1.5) % Neut # (Auto) (1.4-5.7) K/uL Lymph # (Auto) (0.6-2.4) K/uL Christian # (Auto) (0.0-0.8) K/uL Eos # (Auto) (0.0-0.7) K/uL Baso # (Auto) (0.0-0.1) K/uL Nucleated RBC % /100WBC Nucleated RBCs # K/uL INR APTT (18.6-31.3) SEC D-Dimer, Quantitative (0.0-0.50) mg/L FEU ABG pH (7.35-7.45) ABG pCO2 (35-45) mmHG ABG pO2 (80-105) mmHG ABG HCO3 (22-26) mEq/L ABG Total CO2 (23-27) mmol/L ABG Base Excess (-2.0-3.0) Sodium (136-148) mmol/L Potassium (3.5-5.1) mmol/L Chloride (98-107) mmol/L Carbon Dioxide (21.0-32.0) mmol/L BUN (7.0-18.0) mg/dL Creatinine (0.8-1.3) mg/dL Est Cr Clr Drug Dosing mL/min Estimated GFR (MDRD) ml/min Glucose (74-106) mg/dL POC Glucose 335 H (70-99) mg/dL Hemoglobin A1c (4.5 - 6.2) % Lactic Acid 3.6 H* (0.4-2.0) mmol/L Calcium (8.5-10.1) mg/dL Total Bilirubin (0.2-1.0) mg/dL AST (15-37) IU/L ALT (14-63) IU/L Alkaline Phosphatase (46-116) U/L Troponin I 0.797 H* (0.000-0.056) ng/mL C-Reactive Protein (0.00-0.90) mg/dL B-Natriuretic Peptide (<100) PG/ML Total Protein (6.4-8.2) g/dL Albumin (3.4-5.0) g/dL Globulin (2.6-4.0) g/dL Albumin/Globulin Ratio (0.9-1.6) SARS-CoV-2 RNA (JEAN PAUL) (NEGATIVE) 01/24/21 01/24/21 01/24/21 Range/Units 00:33 01:10 01:22 WBC (4.0-11.0) K/uL RBC (4.50-5.90) M/uL Hgb (13.0-17.0) g/dL Hct (38.0-50.0) % MCV (80.0-98.0) fL MCH (27.0-32.0) pg MCHC (31.0-37.0) g/dL RDW Std Deviation (28.0-62.0) fl RDW Coeff of Linda (11.0-15.0) % Plt Count (150-400) K/uL MPV (7.40-12.00) fL Neut % (Auto) (48.0-80.0) % Lymph % (Auto) (16.0-40.0) % Christian % (Auto) (0.0-15.0) % Eos % (Auto) (0.0-7.0) % Baso % (Auto) (0.0-1.5) % Neut # (Auto) (1.4-5.7) K/uL Lymph # (Auto) (0.6-2.4) K/uL Christian # (Auto) (0.0-0.8) K/uL Eos # (Auto) (0.0-0.7) K/uL Baso # (Auto) (0.0-0.1) K/uL Nucleated RBC % /100WBC Nucleated RBCs # K/uL INR APTT 62.7 H (18.6-31.3) SEC D-Dimer, Quantitative (0.0-0.50) mg/L FEU ABG pH 7.41 (7.35-7.45) ABG pCO2 33 L (35-45) mmHG ABG pO2 67 L (80-105) mmHG ABG HCO3 21 L (22-26) mEq/L ABG Total CO2 18.0 L (23-27) mmol/L ABG Base Excess -2.9 L (-2.0-3.0) Sodium (136-148) mmol/L Potassium (3.5-5.1) mmol/L Chloride (98-107) mmol/L Carbon Dioxide (21.0-32.0) mmol/L BUN (7.0-18.0) mg/dL Creatinine (0.8-1.3) mg/dL Est Cr Clr Drug Dosing mL/min Estimated GFR (MDRD) ml/min Glucose (74-106) mg/dL POC Glucose 397 H (70-99) mg/dL Hemoglobin A1c (4.5 - 6.2) % Lactic Acid (0.4-2.0) mmol/L Calcium (8.5-10.1) mg/dL Total Bilirubin (0.2-1.0) mg/dL AST (15-37) IU/L ALT (14-63) IU/L Alkaline Phosphatase (46-116) U/L Troponin I (0.000-0.056) ng/mL C-Reactive Protein (0.00-0.90) mg/dL B-Natriuretic Peptide (<100) PG/ML Total Protein (6.4-8.2) g/dL Albumin (3.4-5.0) g/dL Globulin (2.6-4.0) g/dL Albumin/Globulin Ratio (0.9-1.6) SARS-CoV-2 RNA (JEAN PAUL) (NEGATIVE) 01/24/21 01/24/21 01/24/21 Range/Units 02:07 02:57 04:26 WBC (4.0-11.0) K/uL RBC (4.50-5.90) M/uL Hgb (13.0-17.0) g/dL Hct (38.0-50.0) % MCV (80.0-98.0) fL MCH (27.0-32.0) pg MCHC (31.0-37.0) g/dL RDW Std Deviation (28.0-62.0) fl RDW Coeff of Linda (11.0-15.0) % Plt Count (150-400) K/uL MPV (7.40-12.00) fL Neut % (Auto) (48.0-80.0) % Lymph % (Auto) (16.0-40.0) % Christian % (Auto) (0.0-15.0) % Eos % (Auto) (0.0-7.0) % Baso % (Auto) (0.0-1.5) % Neut # (Auto) (1.4-5.7) K/uL Lymph # (Auto) (0.6-2.4) K/uL Christian # (Auto) (0.0-0.8) K/uL Eos # (Auto) (0.0-0.7) K/uL Baso # (Auto) (0.0-0.1) K/uL Nucleated RBC % /100WBC Nucleated RBCs # K/uL INR APTT (18.6-31.3) SEC D-Dimer, Quantitative (0.0-0.50) mg/L FEU ABG pH (7.35-7.45) ABG pCO2 (35-45) mmHG ABG pO2 (80-105) mmHG ABG HCO3 (22-26) mEq/L ABG Total CO2 (23-27) mmol/L ABG Base Excess (-2.0-3.0) Sodium 127 L (136-148) mmol/L Potassium 4.8 (3.5-5.1) mmol/L Chloride 91 L (98-107) mmol/L Carbon Dioxide 20.0 L (21.0-32.0) mmol/L BUN 40 H (7.0-18.0) mg/dL Creatinine 2.2 H (0.8-1.3) mg/dL Est Cr Clr Drug Dosing 41.64 mL/min Estimated GFR (MDRD) 31.2 ml/min Glucose 540 H* (74-106) mg/dL POC Glucose 424 H* 491 H* (70-99) mg/dL Hemoglobin A1c (4.5 - 6.2) % Lactic Acid (0.4-2.0) mmol/L Calcium 8.0 L (8.5-10.1) mg/dL Total Bilirubin (0.2-1.0) mg/dL AST (15-37) IU/L ALT (14-63) IU/L Alkaline Phosphatase (46-116) U/L Troponin I 0.845 H* (0.000-0.056) ng/mL C-Reactive Protein (0.00-0.90) mg/dL B-Natriuretic Peptide (<100) PG/ML Total Protein (6.4-8.2) g/dL Albumin (3.4-5.0) g/dL Globulin (2.6-4.0) g/dL Albumin/Globulin Ratio (0.9-1.6) SARS-CoV-2 RNA (JEAN PAUL) (NEGATIVE) 01/24/21 01/24/21 01/24/21 Range/Units 05:30 06:09 06:10 WBC (4.0-11.0) K/uL RBC (4.50-5.90) M/uL Hgb (13.0-17.0) g/dL Hct (38.0-50.0) % MCV (80.0-98.0) fL MCH (27.0-32.0) pg MCHC (31.0-37.0) g/dL RDW Std Deviation (28.0-62.0) fl RDW Coeff of Linda (11.0-15.0) % Plt Count (150-400) K/uL MPV (7.40-12.00) fL Neut % (Auto) (48.0-80.0) % Lymph % (Auto) (16.0-40.0) % Christian % (Auto) (0.0-15.0) % Eos % (Auto) (0.0-7.0) % Baso % (Auto) (0.0-1.5) % Neut # (Auto) (1.4-5.7) K/uL Lymph # (Auto) (0.6-2.4) K/uL Christian # (Auto) (0.0-0.8) K/uL Eos # (Auto) (0.0-0.7) K/uL Baso # (Auto) (0.0-0.1) K/uL Nucleated RBC % /100WBC Nucleated RBCs # K/uL INR APTT 54.1 H (18.6-31.3) SEC D-Dimer, Quantitative (0.0-0.50) mg/L FEU ABG pH (7.35-7.45) ABG pCO2 (35-45) mmHG ABG pO2 (80-105) mmHG ABG HCO3 (22-26) mEq/L ABG Total CO2 (23-27) mmol/L ABG Base Excess (-2.0-3.0) Sodium (136-148) mmol/L Potassium (3.5-5.1) mmol/L Chloride (98-107) mmol/L Carbon Dioxide (21.0-32.0) mmol/L BUN (7.0-18.0) mg/dL Creatinine (0.8-1.3) mg/dL Est Cr Clr Drug Dosing mL/min Estimated GFR (MDRD) ml/min Glucose (74-106) mg/dL POC Glucose 449 H* 368 H (70-99) mg/dL Hemoglobin A1c (4.5 - 6.2) % Lactic Acid (0.4-2.0) mmol/L Calcium (8.5-10.1) mg/dL Total Bilirubin (0.2-1.0) mg/dL AST (15-37) IU/L ALT (14-63) IU/L Alkaline Phosphatase (46-116) U/L Troponin I (0.000-0.056) ng/mL C-Reactive Protein (0.00-0.90) mg/dL B-Natriuretic Peptide (<100) PG/ML Total Protein (6.4-8.2) g/dL Albumin (3.4-5.0) g/dL Globulin (2.6-4.0) g/dL Albumin/Globulin Ratio (0.9-1.6) SARS-CoV-2 RNA (JEAN PAUL) (NEGATIVE) 01/24/21 Range/Units 06:10 WBC (4.0-11.0) K/uL RBC (4.50-5.90) M/uL Hgb (13.0-17.0) g/dL Hct (38.0-50.0) % MCV (80.0-98.0) fL MCH (27.0-32.0) pg MCHC (31.0-37.0) g/dL RDW Std Deviation (28.0-62.0) fl RDW Coeff of Linda (11.0-15.0) % Plt Count (150-400) K/uL MPV (7.40-12.00) fL Neut % (Auto) (48.0-80.0) % Lymph % (Auto) (16.0-40.0) % Christian % (Auto) (0.0-15.0) % Eos % (Auto) (0.0-7.0) % Baso % (Auto) (0.0-1.5) % Neut # (Auto) (1.4-5.7) K/uL Lymph # (Auto) (0.6-2.4) K/uL Christian # (Auto) (0.0-0.8) K/uL Eos # (Auto) (0.0-0.7) K/uL Baso # (Auto) (0.0-0.1) K/uL Nucleated RBC % /100WBC Nucleated RBCs # K/uL INR APTT (18.6-31.3) SEC D-Dimer, Quantitative (0.0-0.50) mg/L FEU ABG pH (7.35-7.45) ABG pCO2 (35-45) mmHG ABG pO2 (80-105) mmHG ABG HCO3 (22-26) mEq/L ABG Total CO2 (23-27) mmol/L ABG Base Excess (-2.0-3.0) Sodium (136-148) mmol/L Potassium (3.5-5.1) mmol/L Chloride (98-107) mmol/L Carbon Dioxide (21.0-32.0) mmol/L BUN (7.0-18.0) mg/dL Creatinine (0.8-1.3) mg/dL Est Cr Clr Drug Dosing mL/min Estimated GFR (MDRD) ml/min Glucose (74-106) mg/dL POC Glucose (70-99) mg/dL Hemoglobin A1c 9.0 H (4.5 - 6.2) % Lactic Acid (0.4-2.0) mmol/L Calcium (8.5-10.1) mg/dL Total Bilirubin (0.2-1.0) mg/dL AST (15-37) IU/L ALT (14-63) IU/L Alkaline Phosphatase (46-116) U/L Troponin I (0.000-0.056) ng/mL C-Reactive Protein (0.00-0.90) mg/dL B-Natriuretic Peptide (<100) PG/ML Total Protein (6.4-8.2) g/dL Albumin (3.4-5.0) g/dL Globulin (2.6-4.0) g/dL Albumin/Globulin Ratio (0.9-1.6) SARS-CoV-2 RNA (JEAN PAUL) (NEGATIVE) Result Diagrams: 01/23/21 19:20 01/24/21 02:57 Sepsis Event Note - Focused Exam Vital Signs: Vital Signs Pulse Resp BP BP Pulse Ox 01/24/21 03:55 87 32 H 147/81 H 91 L 01/24/21 02:22 89 33 H 131/74 89 L 01/24/21 01:18 94 34 H 139/105 H 91 L 01/24/21 00:08 102 H 32 H 115/82 94 L 01/23/21 23:26 98 36 H 85/60 L 94 L 01/23/21 21:51 108 H 34 H 105/72 93 L 01/23/21 21:11 131 H 20 139/97 H 91 L 01/23/21 19:45 117 H 36 H 117/88 92 L - Problem List (1) MIS (acute kidney injury) SNOMED Code(s): 78591437, 49390964 ICD Code: N17.9 - ACUTE KIDNEY FAILURE, UNSPECIFIED Status: Acute Current Visit: Yes (2) Hyponatremia SNOMED Code(s): 03460445 ICD Code: E87.1 - HYPO-OSMOLALITY AND HYPONATREMIA Status: Acute Current Visit: Yes (3) Uncontrolled blood glucose SNOMED Code(s): 93194755, 537385851 ICD Code: R73.09 - OTHER ABNORMAL GLUCOSE Status: Acute Current Visit: Yes (4) COVID-19 SNOMED Code(s): 208760738 ICD Code: U07.1 - COVID-19 Status: Acute Current Visit: Yes (5) Constipation SNOMED Code(s): 02383511 ICD Code: K59.00 - CONSTIPATION, UNSPECIFIED Status: Acute Current Visit: Yes Problem List Initiated/Reviewed/Updated: Yes Orders Last 24hrs: Active Orders 24 hr Category Date Time Status Patient Status [ADT] Routine ADT 01/24/21 05:03 Active Blood Glucose Check, Bedside [RC] Q1HR Care 01/24/21 05:30 Active CULTURE BLOOD [BC] Stat Lab 01/23/21 19:20 Received CULTURE BLOOD [BC] Stat Lab 01/23/21 19:36 Received LACTATE SEPSIS W/ REFLEX [CHEM] Q6 Lab 01/24/21 12:00 Ordered LACTATE SEPSIS W/ REFLEX [CHEM] Q6 Lab 01/24/21 18:00 Ordered LACTATE SEPSIS W/ REFLEX [CHEM] Q6 Lab 01/25/21 00:00 Ordered LACTATE SEPSIS W/ REFLEX [CHEM] Q6 Lab 01/25/21 06:00 Ordered LACTIC ACID [CHEM] Routine Lab 01/24/21 06:43 Received aPTT [PTT,PARTIAL THROMBOPLSTIN TIME] [COAG] Q6 Lab 01/24/21 12:00 Ordered aPTT [PTT,PARTIAL THROMBOPLSTIN TIME] [COAG] Q6 Lab 01/24/21 18:00 Ordered aPTT [PTT,PARTIAL THROMBOPLSTIN TIME] [COAG] Q6 Lab 01/25/21 00:00 Ordered aPTT [PTT,PARTIAL THROMBOPLSTIN TIME] [COAG] Q6 Lab 01/25/21 06:00 Ordered Dextrose 50% in Water Med 01/23/21 19:57 Active 50 ml IVPUSH ASDIRECTED PRN Dextrose 50% in Water Med 01/24/21 01:10 Active 50 ml IVPUSH ASDIRECTED PRN Dextrose 50% in Water Med 01/24/21 03:34 Active 50 ml IVPUSH ASDIRECTED PRN Glucagon,Human Recombinant [GlucaGen] Med 01/23/21 19:57 Active 1 mg IM ASDIRECTED PRN Glucagon,Human Recombinant [GlucaGen] Med 01/24/21 01:10 Active 1 mg IM ASDIRECTED PRN Glucagon,Human Recombinant [GlucaGen] Med 01/24/21 03:34 Active 1 mg IM ASDIRECTED PRN Heparin Sodium/0.45% NaCl [Heparin 25,000 Units in 1/2 Med 01/23/21 20:00 Active NS 500 ML] 500 ml IV TITRATE Insulin Regular in 0.9 % NACL [Myxredlin in NS 100 UNIT Med 01/24/21 06:27 Active /100 ML] 100 ml IV TITRATE Blood Culture x2 Reflex Set [OM.PC] Stat Ot 01/23/21 19:02 Ordered Saline Lock Insert [OM.PC] Stat Ot 01/23/21 18:45 Ordered Medication Orders Dextrose/Water (50% Dextrose In Water 50 Ml Syringe) 50 ml IVPUSH ASDIRECTED PRN PRN Reason: Hypoglycemia Dextrose/Water (50% Dextrose In Water 50 Ml Syringe) 50 ml IVPUSH ASDIRECTED PRN PRN Reason: Hypoglycemia Dextrose/Water (50% Dextrose In Water 50 Ml Syringe) 50 ml IVPUSH ASDIRECTED PRN PRN Reason: Hypoglycemia Glucagon (Glucagon,Human Recombinant 1 Mg Vial) 1 mg IM ASDIRECTED PRN PRN Reason: Hypoglycemia Glucagon (Glucagon,Human Recombinant 1 Mg Vial) 1 mg IM ASDIRECTED PRN PRN Reason: Hypoglycemia Glucagon (Glucagon,Human Recombinant 1 Mg Vial) 1 mg IM ASDIRECTED PRN PRN Reason: Hypoglycemia Heparin Sodium/Sodium Chloride (Heparin 25,000 Units In 1/2 Ns 500 Ml) 500 mls @ 37.776 mls/hr IV TITRATE JOSE FRANCISCO; Protocol Last Admin: 01/23/21 21:07 Dose: 12 units/kg/hr, 37.776 mls/hr Documented by: [email or web address] Cosigned by: CLAUDIO Insulin Regular in 0.9 % NACL (Myxredlin In Ns 100 Unit/100 Ml) 100 mls @ 6 mls/hr IV TITRATE JOSE FRANCISCO; Protocol Assessment/Plan Comment:: Admit the patient to the intensive care unit, vitals per unit routine, activity up ad justine., supply oxygen as needed currently is on BiPAP, heparin 25,000 units in half-normal saline for DVT prophylaxis, pantoprazole IV 40 mg for GI prophylaxis, the patient is full code. 1. Severe COVID-19 pneumonia -The patient was given remdesivir 200 mg per IV route as a loading dose while in the emergency department once, currently no orders for subsequent doses are in place, we will reassess the need based on whether the patient is intubated or not -The patient was given a one-time dose of dexamethasone 6 mg per oral route while in the emergency department, no further orders for dexamethasone are in place at this time, we will reassess the need on whether the patient is intubated or not -The patient is currently on BiPAP, 12/27, and we are attempting to keep his oxygen saturation as high as possible. The decision to switch to CPAP may occur. Multiple ABGs have been completed with the next one hopefully revealing whether this patient needs to be intubated or not. The patient's lactic acid is also increased and we will measure it again to see if it is improving. For now we will hold off baricitinib. I will follow up with the eICU physician Dr. Doran after the next set of ABGs and lactic acid return in order to decipher need for intubation. -We will continue to monitor PT and PTT. 2. Elevated troponins -This may be due to demand ischemia, we will continue to monitor the patient for any signs of chest pain or cardiac abnormality. 3. Uncontrolled blood sugars -The patient has been placed on insulin drip in normal saline 100 units / 100 mL and is on GlucaGen to prevent hypoglycemia. 4. Acute kidney injury -Patient received a 1 L NS bolus, we will continue to monitor with CMP 5. Hyponatremia -Patient received a 1 L NS bolus, we will continue to monitor with CMP
--- NOTE | 2021-01-24 08:56 | PN ---
THC Physician - Brief Progress [id number]/05/2021 08:55[facility] Yudith Conklin, [place] - RONALDN (JUAN) - MWN SAHRA MERIDA, ADRIAN+Date of Service 01/24/2021 08:55HPI/Ev ents of Note eICU Admission [id number] admitted for respiratory failure attributed to COVID. History obt ained from review of EMR and discussion with bedside physician Dr. Pizarro.Camera exam: Laying in bed. Vitals monitor reviewed, pulling TV 1.5-2L, RR 30-40s. Per report patient just switched from HFNC to BPAPeICU Recommendations:Isolation precautions per local policyDexamethasone 6mg daily for 10 daysCon tinue oxygen supplementation. If NIV is used, suggest CPAP over BPAP (unless patient is hypercapnic o r has high work of breathing) to minimize patient self-inflicted lung injury - to that end recommende d CPAP of 12, with repeat ABG in 1 hourWhile on insulin drip suggest q1h glucose checks, BMP q4h to t rend potassiumTrend lactate until normalized (would draw with next ABG - depending on results, patien t's respiratory and hemodynamic status may be able to consider a small fluid bolus)eICU will continue to follow and assist as desired.DVT and GI prophylaxis as appropriate.Thank you for allowing us to p articipate in the care of this patient.The above note transcribed with the assistance of dictation so ftware. Please excuse any errors.Interventions Major-Respiratory failure - evaluation and managementE lectronically Signed by: NICK CONDON) on 01/24/2021 08:56
--- NOTE | 2021-01-24 11:16 | PN ---
TOMAS Physician - Brief Progress [id number]/05/2021 11:15[facility] Yudith Conklin, [place] - FIDENCIO (JUAN) - FIDENCIO MERIDASAHRACheryl, ADRIAN+Date of Service 01/24/2021 11:15HPI/Ev ents of Note eICU Update NoteDiscussed case with resident over phone - repeat ABG on CPAP 12 demonstr ates adequate ventilation (however patient exhibiting MV 40-50s, TV still 1.2-1.4L range). Per report on clinical exam patient does not appear to be working hard or tiring out - on my review over camera despite his numbers as described above patient is on his cell phone. I explained potential risks of continuing NIV therapy, including risk of barotrauma given high TV, and potentially tiring out given his high minute ventilation - however the decision to intubate at this time failing an immediate haleigh cation would have to be made taking into consideration the local resources and availability of beds f or transfer, which I would necessarily have to defer to bedside. We elected in the interim to continu e current therapy and repeat and ABG and lactate in 4 hours (or sooner if patient were to deteriorate ). I suggested we hold off on baracitinib (or any oral medication) so as to not interrupt CPAP therap y, and assess progression of respiratory status - if patient were to improve would be reasonable to i nterrupt therapy for oral administration. As for lactate, patient fails to demonstrate other signs of hypoperfusion (ie tachycardia, hypotension) on my review of vitals monitor - I suggested we continue to monitor other signs of perfusion (ie urine output, vitals) and assess lactate trend when next ABG is drawn to inform whether we administer fluids.Interventions Major-Respiratory failure - evaluation and management
[2021-01-24] MEDS: Heparin Sodium/0.45% NaCl 500 ML IV SCH ×2 (11:42→23:04)
[2021-01-24] MEDS ORDERED: Heparin Sodium 5,000 Units/ML Vial IVPUSH ONE (13:32)
--- NOTE | 2021-01-24 16:24 | PN ---
THC Physician - Brief Progress [id number]/05/2021 16:24[facility] Yudith Conklin, [place] - FIDENCIO (JUAN) - SAHRA MEDEROS COVID+Date of Service 01/24/2021 16:24HPI/Ev ents of Note eICU Update NoteCase discussed with resident physician over telephone. Repeat ABG demons trates PCO2 34, PO2 63 on CPAP 12.RR dropped to 20s, TV has somewhat improved to 900-1.2L range on my review. Per report patient appears more comfortable. Lactate has downtrended without IV fluids, pieter ent remains hemodynamically stable.Per lab work no leukocytosis, CRP 30 from yesterday PM draw, no robison spicion from bedside for bacterial pneumoniaRecommendations:Start baricitinibABG and lactate at 9PMIn terventions Major-Respiratory failure - evaluation and management
[2021-01-24] MEDS ORDERED: Dexamethasone 4 MG Tab PO SCH (20:00)
[2021-01-24] MEDS ORDERED: Docusate Sodium 100 MG Cap PO PRN (20:00)
[2021-01-24] MEDS: REMDESIVIR 100 MG in Sodium Chloride 0.9% 100 ML IV SCH (20:42)
[2021-01-25] MEDS ORDERED: Heparin Sodium 5,000 Units/ML Vial IVPUSH ONE (01:53)
[2021-01-25 07:08] LABS: BLOOD UREA NITROGEN,BUN 38 mg/dL (7.0-18.0); CARBON DIOXIDE,CO2 21.6 mmol/L (21.0-32.0); CHLORIDE,CL 98 mmol/L (98-107); GLUCOSE RANDOM 261 mg/dL (74-106); POTASSIUM,K 4.3 mmol/L (3.5-5.1); SODIUM,NA 131 mmol/L (136-148)
[2021-01-25] MEDS: Pantoprazole 40 MG in Sodium Chloride 0.9% 10 ML IV SCH (08:01)
--- NOTE | 2021-01-25 08:26 | PN ---
THC Physician - Brief Progress [id number]/06/2021 08:25[facility] Yudith Conklin, [place] - [facility] MWN SAHRA MERIDA, SARANID+Date of Service 01/25/2021 08:25HPI/Ev ents of Note eICU Progress [id number] admitted for respiratory failure attributed to COVID. History obta ined from review of EMR and discussion with resident physician over telephone.Camera exam: Laying in bed on CPAP, RR 25-30, TV 1.2-1.5L, MV upper 30s-40s. Vitals monitor reviewed. eICU Recommendations:I ncrease CPAP [id number] - increased pressure may improve subjective perception of comfort/support and re duce patient's tidal volumes, as well as improve recruitment given higher BMI and potentially improve FiO2 requirements. Repeat ABG at noonGiven TV of 1.2-1.5L, patient continues to remain at risk for b arotrauma. Decision to intubate in this setting would need to be made in the context of locally avail able resources, ability to transfer, patient attitude towards intubation, etc. Would necessarily have to defer this decision to bedside, however regardless of bedside decision eICU will remain available to supportContinue baricitinib, dexamethasone for a total of 10 days, remdesivir for a total of 5 da ys eICU will continue to follow and assist as desired.DVT and GI prophylaxis as appropriate.Thank you for allowing us to participate in the care of this patient.The above note transcribed with the александр tance of dictation software. Please excuse any errors.Interventions Major-Respiratory failure - evalu ation and management
[2021-01-25] MEDS ORDERED: Glucagon,Human Recombinant 1 MG Vial IM PRN ×4 (09:38→17:42)
[2021-01-25] MEDS ORDERED: 50% Dextrose in Water 50 ML Syringe IVPUSH PRN ×4 (09:38→17:42)
[2021-01-25] MEDS ORDERED: Insulin Glargine,Human Rec. Analog 100 Units/ML 3 ML Pen SUBCUT ONE (10:15)
[2021-01-25] MEDS: Enoxaparin 150 MG/1 ML Syringe SUBCUT SCH ×2 (10:46→21:35)
[2021-01-25] MEDS: Insulin Aspart 100 Units/ML 3 ML Pen SUBCUT SCH ×2 (11:18→16:18)
--- NOTE | 2021-01-25 11:48 | PCM.PN ---
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 This morning I had a chance to speak with eICU physician Dr. Doran in regards to this patient's care, his current ABG levels were revealed and it was recommended to increase his CPAP from 12 to 14. His tidal volume is still high at 1.2 and as a result he is at risk for barotrauma. There was also discussion about giving the patien t morphine to decrease his minute ventilation however that would increase his carbon dioxide and as a result we have refrained from this action. Discussion about intubation also took place which ultimately would depend on local resources and availability of placement. Dr. Doran also recommended performing another ABG this afternoon and once those results return, to contact him for further recommendations. The patient also has increased blood sugars despite having a insulin drip in place. As a result of the drip will be discontinued and the patient will be placed on Lantus and have Accu-Cheks every 4 hours and a insulin sliding scale every 6 hours. We will also check his troponin level, despite them being downtrending. The patient is currently on CPAP and saturating between 88-92%. On interview with the patient today, he admits he feels better today than on admission in regards to his breathing difficulties. He is able to drink water without any issues and as a result we will transition him to a clear liquid diet. - Review of Systems General: Reports: Fatigue. Denies: Fever HEENT: Denies: Headaches, Sore Throat Pulmonary: Reports: Shortness of Breath, Cough Cardiovascular: Denies: Chest Pain, Palpitations Gastrointestinal: Denies: Abdominal Pain Genitourinary: Denies: Dysuria - Patient Data Vitals - Most Recent: Last Vital Signs Temp 97.3 F 01/25/21 08:00 Pulse 91 01/24/21 21:00 Resp 28 H 01/25/21 11:00 BP 141/76 H 01/25/21 11:00 Pulse Ox 90 L 11/06/21 11:00 Weight - Most Recent: 158.667 kg I&O - Last 24 Hours: Intake & Output 01/24/21 01/25/21 01/25/21 22:59 06:59 14:59 Intake Total 100 Output Total 900 Balance -800 Lab Results Last 24 Hours: Laboratory Results - last 24 hr 01/24/21 01/24/21 01/24/21 Range/Units 11:53 12:03 12:03 WBC (4.0-11.0) K/uL RBC (4.50-5.90) M/uL Hgb (13.0-17.0) g/dL Hct (38.0-50.0) % MCV (80.0-98.0) fL MCH (27.0-32.0) pg MCHC (31.0-37.0) g/dL RDW Std Deviation (28.0-62.0) fl RDW Coeff of Linda (11.0-15.0) % Plt Count (150-400) K/uL MPV (7.40-12.00) fL Neut % (Auto) (48.0-80.0) % Lymph % (Auto) (16.0-40.0) % [place] % (Auto) (0.0-15.0) % Eos % (Auto) (0.0-7.0) % Baso % (Auto) (0.0-1.5) % Neut # (Auto) (1.4-5.7) K/uL Lymph # (Auto) (0.6-2.4) K/uL [place] # (Auto) (0.0-0.8) K/uL Eos # (Auto) (0.0-0.7) K/uL Baso # (Auto) (0.0-0.1) K/uL Nucleated RBC % /100WBC Nucleated RBCs # K/uL APTT 44.3 H (18.6-31.3) SEC ABG pH (7.35-7.45) ABG pCO2 (35-45) mmHG ABG pO2 (80-105) mmHG ABG HCO3 (22-26) mEq/L ABG Total CO2 (23-27) mmol/L ABG Base Excess (-2.0-3.0) Sodium (136-148) mmol/L Potassium (3.5-5.1) mmol/L Chloride (98-107) mmol/L Carbon Dioxide (21.0-32.0) mmol/L BUN (7.0-18.0) mg/dL Creatinine (0.8-1.3) mg/dL Est Cr Clr Drug Dosing mL/min Estimated GFR (MDRD) ml/min Glucose (74-106) mg/dL POC Glucose 294 H (70-99) mg/dL Lactic Acid 2.5 H* (0.4-2.0) mmol/L Calcium (8.5-10.1) mg/dL Total Bilirubin (0.2-1.0) mg/dL AST (15-37) IU/L ALT (14-63) IU/L Alkaline Phosphatase (46-116) U/L Troponin I (0.000-0.056) ng/mL Total Protein (6.4-8.2) g/dL Albumin (3.4-5.0) g/dL Globulin (2.6-4.0) g/dL Albumin/Globulin Ratio (0.9-1.6) 01/24/21 01/24/21 01/24/21 Range/Units 12:03 13:13 14:10 WBC (4.0-11.0) K/uL RBC (4.50-5.90) M/uL Hgb (13.0-17.0) g/dL Hct (38.0-50.0) % MCV (80.0-98.0) fL MCH (27.0-32.0) pg MCHC (31.0-37.0) g/dL RDW Std Deviation (28.0-62.0) fl RDW Coeff of Linda (11.0-15.0) % Plt Count (150-400) K/uL MPV (7.40-12.00) fL Neut % (Auto) (48.0-80.0) % Lymph % (Auto) (16.0-40.0) % [place] % (Auto) (0.0-15.0) % Eos % (Auto) (0.0-7.0) % Baso % (Auto) (0.0-1.5) % Neut # (Auto) (1.4-5.7) K/uL Lymph # (Auto) (0.6-2.4) K/uL [place] # (Auto) (0.0-0.8) K/uL Eos # (Auto) (0.0-0.7) K/uL Baso # (Auto) (0.0-0.1) K/uL Nucleated RBC % /100WBC Nucleated RBCs # K/uL APTT (18.6-31.3) SEC ABG pH (7.35-7.45) ABG pCO2 (35-45) mmHG ABG pO2 (80-105) mmHG ABG HCO3 (22-26) mEq/L ABG Total CO2 (23-27) mmol/L ABG Base Excess (-2.0-3.0) Sodium (136-148) mmol/L Potassium (3.5-5.1) mmol/L Chloride (98-107) mmol/L Carbon Dioxide (21.0-32.0) mmol/L BUN (7.0-18.0) mg/dL Creatinine (0.8-1.3) mg/dL Est Cr Clr Drug Dosing mL/min Estimated GFR (MDRD) ml/min Glucose (74-106) mg/dL POC Glucose 307 H 291 H (70-99) mg/dL Lactic Acid (0.4-2.0) mmol/L Calcium (8.5-10.1) mg/dL Total Bilirubin (0.2-1.0) mg/dL AST (15-37) IU/L ALT (14-63) IU/L Alkaline Phosphatase (46-116) U/L Troponin I 0.904 H* (0.000-0.056) ng/mL Total Protein (6.4-8.2) g/dL Albumin (3.4-5.0) g/dL Globulin (2.6-4.0) g/dL Albumin/Globulin Ratio (0.9-1.6) 01/24/21 01/24/21 01/24/21 Range/Units 15:07 15:30 15:54 WBC (4.0-11.0) K/uL RBC (4.50-5.90) M/uL Hgb (13.0-17.0) g/dL Hct (38.0-50.0) % MCV (80.0-98.0) fL MCH (27.0-32.0) pg MCHC (31.0-37.0) g/dL RDW Std Deviation (28.0-62.0) fl RDW Coeff of Linda (11.0-15.0) % Plt Count (150-400) K/uL MPV (7.40-12.00) fL Neut % (Auto) (48.0-80.0) % Lymph % (Auto) (16.0-40.0) % [place] % (Auto) (0.0-15.0) % Eos % (Auto) (0.0-7.0) % Baso % (Auto) (0.0-1.5) % Neut # (Auto) (1.4-5.7) K/uL Lymph # (Auto) (0.6-2.4) K/uL [place] # (Auto) (0.0-0.8) K/uL Eos # (Auto) (0.0-0.7) K/uL Baso # (Auto) (0.0-0.1) K/uL Nucleated RBC % /100WBC Nucleated RBCs # K/uL APTT (18.6-31.3) SEC ABG pH 7.45 (7.35-7.45) ABG pCO2 34 L (35-45) mmHG ABG pO2 63 L (80-105) mmHG ABG HCO3 23 (22-26) mEq/L ABG Total CO2 19.9 L (23-27) mmol/L ABG Base Excess 0.0 (-2.0-3.0) Sodium (136-148) mmol/L Potassium (3.5-5.1) mmol/L Chloride (98-107) mmol/L Carbon Dioxide (21.0-32.0) mmol/L BUN (7.0-18.0) mg/dL Creatinine (0.8-1.3) mg/dL Est Cr Clr Drug Dosing mL/min Estimated GFR (MDRD) ml/min Glucose (74-106) mg/dL POC Glucose 260 H 292 H (70-99) mg/dL Lactic Acid (0.4-2.0) mmol/L Calcium (8.5-10.1) mg/dL Total Bilirubin (0.2-1.0) mg/dL AST (15-37) IU/L ALT (14-63) IU/L Alkaline Phosphatase (46-116) U/L Troponin I (0.000-0.056) ng/mL Total Protein (6.4-8.2) g/dL Albumin (3.4-5.0) g/dL Globulin (2.6-4.0) g/dL Albumin/Globulin Ratio (0.9-1.6) 01/24/21 01/24/21 01/24/21 Range/Units 16:55 18:02 18:02 WBC (4.0-11.0) K/uL RBC (4.50-5.90) M/uL Hgb (13.0-17.0) g/dL Hct (38.0-50.0) % MCV (80.0-98.0) fL MCH (27.0-32.0) pg MCHC (31.0-37.0) g/dL RDW Std Deviation (28.0-62.0) fl RDW Coeff of Linda (11.0-15.0) % Plt Count (150-400) K/uL MPV (7.40-12.00) fL Neut % (Auto) (48.0-80.0) % Lymph % (Auto) (16.0-40.0) % [place] % (Auto) (0.0-15.0) % Eos % (Auto) (0.0-7.0) % Baso % (Auto) (0.0-1.5) % Neut # (Auto) (1.4-5.7) K/uL Lymph # (Auto) (0.6-2.4) K/uL [place] # (Auto) (0.0-0.8) K/uL Eos # (Auto) (0.0-0.7) K/uL Baso # (Auto) (0.0-0.1) K/uL Nucleated RBC % /100WBC Nucleated RBCs # K/uL APTT 50.1 H (18.6-31.3) SEC ABG pH (7.35-7.45) ABG pCO2 (35-45) mmHG ABG pO2 (80-105) mmHG ABG HCO3 (22-26) mEq/L ABG Total CO2 (23-27) mmol/L ABG Base Excess (-2.0-3.0) Sodium (136-148) mmol/L Potassium (3.5-5.1) mmol/L Chloride (98-107) mmol/L Carbon Dioxide (21.0-32.0) mmol/L BUN (7.0-18.0) mg/dL Creatinine (0.8-1.3) mg/dL Est Cr Clr Drug Dosing mL/min Estimated GFR (MDRD) ml/min Glucose (74-106) mg/dL POC Glucose 255 H (70-99) mg/dL Lactic Acid 2.4 H* (0.4-2.0) mmol/L Calcium (8.5-10.1) mg/dL Total Bilirubin (0.2-1.0) mg/dL AST (15-37) IU/L ALT (14-63) IU/L Alkaline Phosphatase (46-116) U/L Troponin I (0.000-0.056) ng/mL Total Protein (6.4-8.2) g/dL Albumin (3.4-5.0) g/dL Globulin (2.6-4.0) g/dL Albumin/Globulin Ratio (0.9-1.6) 01/24/21 01/24/21 01/24/21 Range/Units 18:02 18:02 19:49 WBC (4.0-11.0) K/uL RBC (4.50-5.90) M/uL Hgb (13.0-17.0) g/dL Hct (38.0-50.0) % MCV (80.0-98.0) fL MCH (27.0-32.0) pg MCHC (31.0-37.0) g/dL RDW Std Deviation (28.0-62.0) fl RDW Coeff of Linda (11.0-15.0) % Plt Count (150-400) K/uL MPV (7.40-12.00) fL Neut % (Auto) (48.0-80.0) % Lymph % (Auto) (16.0-40.0) % [place] % (Auto) (0.0-15.0) % Eos % (Auto) (0.0-7.0) % Baso % (Auto) (0.0-1.5) % Neut # (Auto) (1.4-5.7) K/uL Lymph # (Auto) (0.6-2.4) K/uL [place] # (Auto) (0.0-0.8) K/uL Eos # (Auto) (0.0-0.7) K/uL Baso # (Auto) (0.0-0.1) K/uL Nucleated RBC % /100WBC Nucleated RBCs # K/uL APTT (18.6-31.3) SEC ABG pH (7.35-7.45) ABG pCO2 (35-45) mmHG ABG pO2 (80-105) mmHG ABG HCO3 (22-26) mEq/L ABG Total CO2 (23-27) mmol/L ABG Base Excess (-2.0-3.0) Sodium (136-148) mmol/L Potassium (3.5-5.1) mmol/L Chloride (98-107) mmol/L Carbon Dioxide (21.0-32.0) mmol/L BUN (7.0-18.0) mg/dL Creatinine (0.8-1.3) mg/dL Est Cr Clr Drug Dosing mL/min Estimated GFR (MDRD) ml/min Glucose (74-106) mg/dL POC Glucose 244 H 266 H (70-99) mg/dL Lactic Acid (0.4-2.0) mmol/L Calcium (8.5-10.1) mg/dL Total Bilirubin (0.2-1.0) mg/dL AST (15-37) IU/L ALT (14-63) IU/L Alkaline Phosphatase (46-116) U/L Troponin I 0.659 H* (0.000-0.056) ng/mL Total Protein (6.4-8.2) g/dL Albumin (3.4-5.0) g/dL Globulin (2.6-4.0) g/dL Albumin/Globulin Ratio (0.9-1.6) 01/24/21 01/24/21 01/24/21 Range/Units 20:49 21:15 21:35 WBC (4.0-11.0) K/uL RBC (4.50-5.90) M/uL Hgb (13.0-17.0) g/dL Hct (38.0-50.0) % MCV (80.0-98.0) fL MCH (27.0-32.0) pg MCHC (31.0-37.0) g/dL RDW Std Deviation (28.0-62.0) fl RDW Coeff of Linda (11.0-15.0) % Plt Count (150-400) K/uL MPV (7.40-12.00) fL Neut % (Auto) (48.0-80.0) % Lymph % (Auto) (16.0-40.0) % [place] % (Auto) (0.0-15.0) % Eos % (Auto) (0.0-7.0) % Baso % (Auto) (0.0-1.5) % Neut # (Auto) (1.4-5.7) K/uL Lymph # (Auto) (0.6-2.4) K/uL [place] # (Auto) (0.0-0.8) K/uL Eos # (Auto) (0.0-0.7) K/uL Baso # (Auto) (0.0-0.1) K/uL Nucleated RBC % /100WBC Nucleated RBCs # K/uL APTT (18.6-31.3) SEC ABG pH 7.45 (7.35-7.45) ABG pCO2 34 L (35-45) mmHG ABG pO2 65 L (80-105) mmHG ABG HCO3 24 (22-26) mEq/L ABG Total CO2 19.3 L (23-27) mmol/L ABG Base Excess 0.4 (-2.0-3.0) Sodium (136-148) mmol/L Potassium (3.5-5.1) mmol/L Chloride (98-107) mmol/L Carbon Dioxide (21.0-32.0) mmol/L BUN (7.0-18.0) mg/dL Creatinine (0.8-1.3) mg/dL Est Cr Clr Drug Dosing mL/min Estimated GFR (MDRD) ml/min Glucose (74-106) mg/dL POC Glucose 225 H (70-99) mg/dL Lactic Acid 2.1 H* (0.4-2.0) mmol/L Calcium (8.5-10.1) mg/dL Total Bilirubin (0.2-1.0) mg/dL AST (15-37) IU/L ALT (14-63) IU/L Alkaline Phosphatase (46-116) U/L Troponin I (0.000-0.056) ng/mL Total Protein (6.4-8.2) g/dL Albumin (3.4-5.0) g/dL Globulin (2.6-4.0) g/dL Albumin/Globulin Ratio (0.9-1.6) 01/24/21 01/24/21 01/24/21 Range/Units 21:36 22:48 23:25 WBC (4.0-11.0) K/uL RBC (4.50-5.90) M/uL Hgb (13.0-17.0) g/dL Hct (38.0-50.0) % MCV (80.0-98.0) fL MCH (27.0-32.0) pg MCHC (31.0-37.0) g/dL RDW Std Deviation (28.0-62.0) fl RDW Coeff of Linda (11.0-15.0) % Plt Count (150-400) K/uL MPV (7.40-12.00) fL Neut % (Auto) (48.0-80.0) % Lymph % (Auto) (16.0-40.0) % [place] % (Auto) (0.0-15.0) % Eos % (Auto) (0.0-7.0) % Baso % (Auto) (0.0-1.5) % Neut # (Auto) (1.4-5.7) K/uL Lymph # (Auto) (0.6-2.4) K/uL [place] # (Auto) (0.0-0.8) K/uL Eos # (Auto) (0.0-0.7) K/uL Baso # (Auto) (0.0-0.1) K/uL Nucleated RBC % /100WBC Nucleated RBCs # K/uL APTT (18.6-31.3) SEC ABG pH (7.35-7.45) ABG pCO2 (35-45) mmHG ABG pO2 (80-105) mmHG ABG HCO3 (22-26) mEq/L ABG Total CO2 (23-27) mmol/L ABG Base Excess (-2.0-3.0) Sodium (136-148) mmol/L Potassium (3.5-5.1) mmol/L Chloride (98-107) mmol/L Carbon Dioxide (21.0-32.0) mmol/L BUN (7.0-18.0) mg/dL Creatinine (0.8-1.3) mg/dL Est Cr Clr Drug Dosing mL/min Estimated GFR (MDRD) ml/min Glucose (74-106) mg/dL POC Glucose 243 H 246 H 238 H (70-99) mg/dL Lactic Acid (0.4-2.0) mmol/L Calcium (8.5-10.1) mg/dL Total Bilirubin (0.2-1.0) mg/dL AST (15-37) IU/L ALT (14-63) IU/L Alkaline Phosphatase (46-116) U/L Troponin I (0.000-0.056) ng/mL Total Protein (6.4-8.2) g/dL Albumin (3.4-5.0) g/dL Globulin (2.6-4.0) g/dL Albumin/Globulin Ratio (0.9-1.6) 01/25/21 01/25/21 01/25/21 Range/Units 00:46 01:00 01:00 WBC (4.0-11.0) K/uL RBC (4.50-5.90) M/uL Hgb (13.0-17.0) g/dL Hct (38.0-50.0) % MCV (80.0-98.0) fL MCH (27.0-32.0) pg MCHC (31.0-37.0) g/dL RDW Std Deviation (28.0-62.0) fl RDW Coeff of Linda (11.0-15.0) % Plt Count (150-400) K/uL MPV (7.40-12.00) fL Neut % (Auto) (48.0-80.0) % Lymph % (Auto) (16.0-40.0) % [place] % (Auto) (0.0-15.0) % Eos % (Auto) (0.0-7.0) % Baso % (Auto) (0.0-1.5) % Neut # (Auto) (1.4-5.7) K/uL Lymph # (Auto) (0.6-2.4) K/uL [place] # (Auto) (0.0-0.8) K/uL Eos # (Auto) (0.0-0.7) K/uL Baso # (Auto) (0.0-0.1) K/uL Nucleated RBC % /100WBC Nucleated RBCs # K/uL APTT 45.1 H (18.6-31.3) SEC ABG pH (7.35-7.45) ABG pCO2 (35-45) mmHG ABG pO2 (80-105) mmHG ABG HCO3 (22-26) mEq/L ABG Total CO2 (23-27) mmol/L ABG Base Excess (-2.0-3.0) Sodium (136-148) mmol/L Potassium (3.5-5.1) mmol/L Chloride (98-107) mmol/L Carbon Dioxide (21.0-32.0) mmol/L BUN (7.0-18.0) mg/dL Creatinine (0.8-1.3) mg/dL Est Cr Clr Drug Dosing mL/min Estimated GFR (MDRD) ml/min Glucose (74-106) mg/dL POC Glucose 275 H (70-99) mg/dL Lactic Acid 2.1 H* (0.4-2.0) mmol/L Calcium (8.5-10.1) mg/dL Total Bilirubin (0.2-1.0) mg/dL AST (15-37) IU/L ALT (14-63) IU/L Alkaline Phosphatase (46-116) U/L Troponin I (0.000-0.056) ng/mL Total Protein (6.4-8.2) g/dL Albumin (3.4-5.0) g/dL Globulin (2.6-4.0) g/dL Albumin/Globulin Ratio (0.9-1.6) 01/25/21 01/25/21 01/25/21 Range/Units 01:51 02:38 06:04 WBC (4.0-11.0) K/uL RBC (4.50-5.90) M/uL Hgb (13.0-17.0) g/dL Hct (38.0-50.0) % MCV (80.0-98.0) fL MCH (27.0-32.0) pg MCHC (31.0-37.0) g/dL RDW Std Deviation (28.0-62.0) fl RDW Coeff of Linda (11.0-15.0) % Plt Count (150-400) K/uL MPV (7.40-12.00) fL Neut % (Auto) (48.0-80.0) % Lymph % (Auto) (16.0-40.0) % [place] % (Auto) (0.0-15.0) % Eos % (Auto) (0.0-7.0) % Baso % (Auto) (0.0-1.5) % Neut # (Auto) (1.4-5.7) K/uL Lymph # (Auto) (0.6-2.4) K/uL [place] # (Auto) (0.0-0.8) K/uL Eos # (Auto) (0.0-0.7) K/uL Baso # (Auto) (0.0-0.1) K/uL Nucleated RBC % /100WBC Nucleated RBCs # K/uL APTT (18.6-31.3) SEC ABG pH (7.35-7.45) ABG pCO2 (35-45) mmHG ABG pO2 (80-105) mmHG ABG HCO3 (22-26) mEq/L ABG Total CO2 (23-27) mmol/L ABG Base Excess (-2.0-3.0) Sodium (136-148) mmol/L Potassium (3.5-5.1) mmol/L Chloride (98-107) mmol/L Carbon Dioxide (21.0-32.0) mmol/L BUN (7.0-18.0) mg/dL Creatinine (0.8-1.3) mg/dL Est Cr Clr Drug Dosing mL/min Estimated GFR (MDRD) ml/min Glucose (74-106) mg/dL POC Glucose 255 H 256 H 268 H (70-99) mg/dL Lactic Acid (0.4-2.0) mmol/L Calcium (8.5-10.1) mg/dL Total Bilirubin (0.2-1.0) mg/dL AST (15-37) IU/L ALT (14-63) IU/L Alkaline Phosphatase (46-116) U/L Troponin I (0.000-0.056) ng/mL Total Protein (6.4-8.2) g/dL Albumin (3.4-5.0) g/dL Globulin (2.6-4.0) g/dL Albumin/Globulin Ratio (0.9-1.6) 01/25/21 01/25/21 01/25/21 Range/Units 06:21 06:21 06:21 WBC 10.94 (4.0-11.0) K/uL RBC 5.11 (4.50-5.90) M/uL Hgb 15.4 (13.0-17.0) g/dL Hct 43.6 (38.0-50.0) % MCV 85.3 (80.0-98.0) fL MCH 30.1 (27.0-32.0) pg MCHC 35.3 (31.0-37.0) g/dL RDW Std Deviation 40.9 (28.0-62.0) fl RDW Coeff of Linda 13 (11.0-15.0) % Plt Count 162 (150-400) K/uL MPV 11.70 (7.40-12.00) fL Neut % (Auto) 86.3 H (48.0-80.0) % Lymph % (Auto) 10.6 L (16.0-40.0) % [place] % (Auto) 2.6 (0.0-15.0) % Eos % (Auto) 0.0 (0.0-7.0) % Baso % (Auto) 0.5 (0.0-1.5) % Neut # (Auto) 9.5 H (1.4-5.7) K/uL Lymph # (Auto) 1.2 (0.6-2.4) K/uL [place] # (Auto) 0.3 (0.0-0.8) K/uL Eos # (Auto) 0.0 (0.0-0.7) K/uL Baso # (Auto) 0.1 (0.0-0.1) K/uL Nucleated RBC % 0.0 /100WBC Nucleated RBCs # 0 K/uL APTT 52.6 H (18.6-31.3) SEC ABG pH (7.35-7.45) ABG pCO2 (35-45) mmHG ABG pO2 (80-105) mmHG ABG HCO3 (22-26) mEq/L ABG Total CO2 (23-27) mmol/L ABG Base Excess (-2.0-3.0) Sodium (136-148) mmol/L Potassium (3.5-5.1) mmol/L Chloride (98-107) mmol/L Carbon Dioxide (21.0-32.0) mmol/L BUN (7.0-18.0) mg/dL Creatinine (0.8-1.3) mg/dL Est Cr Clr Drug Dosing mL/min Estimated GFR (MDRD) ml/min Glucose (74-106) mg/dL POC Glucose (70-99) mg/dL Lactic Acid 1.9 (0.4-2.0) mmol/L Calcium (8.5-10.1) mg/dL Total Bilirubin (0.2-1.0) mg/dL AST (15-37) IU/L ALT (14-63) IU/L Alkaline Phosphatase (46-116) U/L Troponin I (0.000-0.056) ng/mL Total Protein (6.4-8.2) g/dL Albumin (3.4-5.0) g/dL Globulin (2.6-4.0) g/dL Albumin/Globulin Ratio (0.9-1.6) 01/25/21 01/25/21 01/25/21 Range/Units 06:21 06:21 07:00 WBC (4.0-11.0) K/uL RBC (4.50-5.90) M/uL Hgb (13.0-17.0) g/dL Hct (38.0-50.0) % MCV (80.0-98.0) fL MCH (27.0-32.0) pg MCHC (31.0-37.0) g/dL RDW Std Deviation (28.0-62.0) fl RDW Coeff of Linda (11.0-15.0) % Plt Count (150-400) K/uL MPV (7.40-12.00) fL Neut % (Auto) (48.0-80.0) % Lymph % (Auto) (16.0-40.0) % [place] % (Auto) (0.0-15.0) % Eos % (Auto) (0.0-7.0) % Baso % (Auto) (0.0-1.5) % Neut # (Auto) (1.4-5.7) K/uL Lymph # (Auto) (0.6-2.4) K/uL [place] # (Auto) (0.0-0.8) K/uL Eos # (Auto) (0.0-0.7) K/uL Baso # (Auto) (0.0-0.1) K/uL Nucleated RBC % /100WBC Nucleated RBCs # K/uL APTT (18.6-31.3) SEC ABG pH 7.44 (7.35-7.45) ABG pCO2 37 (35-45) mmHG ABG pO2 61 L (80-105) mmHG ABG HCO3 25 (22-26) mEq/L ABG Total CO2 21.3 L (23-27) mmol/L ABG Base Excess 0.6 (-2.0-3.0) Sodium 131 L (136-148) mmol/L Potassium 4.3 (3.5-5.1) mmol/L Chloride 98 (98-107) mmol/L Carbon Dioxide 21.6 (21.0-32.0) mmol/L BUN 38 H (7.0-18.0) mg/dL Creatinine 1.1 (0.8-1.3) mg/dL Est Cr Clr Drug Dosing 83.28 mL/min Estimated GFR (MDRD) > 60.0 ml/min Glucose 261 H (74-106) mg/dL POC Glucose (70-99) mg/dL Lactic Acid (0.4-2.0) mmol/L Calcium 7.6 L (8.5-10.1) mg/dL Total Bilirubin 0.8 (0.2-1.0) mg/dL AST 102 H (15-37) IU/L ALT 57 (14-63) IU/L Alkaline Phosphatase 79 (46-116) U/L Troponin I 0.242 H* (0.000-0.056) ng/mL Total Protein 6.3 L (6.4-8.2) g/dL Albumin 2.0 L (3.4-5.0) g/dL Globulin 4.3 H (2.6-4.0) g/dL Albumin/Globulin Ratio 0.5 L (0.9-1.6) 01/25/21 01/25/21 Range/Units 08:09 11:12 WBC (4.0-11.0) K/uL RBC (4.50-5.90) M/uL Hgb (13.0-17.0) g/dL Hct (38.0-50.0) % MCV (80.0-98.0) fL MCH (27.0-32.0) pg MCHC (31.0-37.0) g/dL RDW Std Deviation (28.0-62.0) fl RDW Coeff of Linda (11.0-15.0) % Plt Count (150-400) K/uL MPV (7.40-12.00) fL Neut % (Auto) (48.0-80.0) % Lymph % (Auto) (16.0-40.0) % [place] % (Auto) (0.0-15.0) % Eos % (Auto) (0.0-7.0) % Baso % (Auto) (0.0-1.5) % Neut # (Auto) (1.4-5.7) K/uL Lymph # (Auto) (0.6-2.4) K/uL [place] # (Auto) (0.0-0.8) K/uL Eos # (Auto) (0.0-0.7) K/uL Baso # (Auto) (0.0-0.1) K/uL Nucleated RBC % /100WBC Nucleated RBCs # K/uL APTT (18.6-31.3) SEC ABG pH (7.35-7.45) ABG pCO2 (35-45) mmHG ABG pO2 (80-105) mmHG ABG HCO3 (22-26) mEq/L ABG Total CO2 (23-27) mmol/L ABG Base Excess (-2.0-3.0) Sodium (136-148) mmol/L Potassium (3.5-5.1) mmol/L Chloride (98-107) mmol/L Carbon Dioxide (21.0-32.0) mmol/L BUN (7.0-18.0) mg/dL Creatinine (0.8-1.3) mg/dL Est Cr Clr Drug Dosing mL/min Estimated GFR (MDRD) ml/min Glucose (74-106) mg/dL POC Glucose 265 H 296 H (70-99) mg/dL Lactic Acid (0.4-2.0) mmol/L Calcium (8.5-10.1) mg/dL Total Bilirubin (0.2-1.0) mg/dL AST (15-37) IU/L ALT (14-63) IU/L Alkaline Phosphatase (46-116) U/L Troponin I (0.000-0.056) ng/mL Total Protein (6.4-8.2) g/dL Albumin (3.4-5.0) g/dL Globulin (2.6-4.0) g/dL Albumin/Globulin Ratio (0.9-1.6) [place] Results Last 24 Hours: Microbiology 01/23/21 19:36 Aerobic Blood Culture - Preliminary Blood - Venous - Lab Draw NO GROWTH AFTER 1 DAY Anaerobic Blood Culture - Preliminary NO GROWTH AFTER 1 DAY 01/23/21 19:20 Aerobic Blood Culture - Preliminary Blood - Venous NO GROWTH AFTER 1 DAY Anaerobic Blood Culture - Preliminary NO GROWTH AFTER 1 DAY Med Orders - Current: Current Medications Baricitinib (Baricitinib 2 Mg Tab) 4 mg PO DAILY [facility] Last Admin: 01/25/21 08:00 Dose: 4 mg Documented by: Dexamethasone (Dexamethasone 4 Mg Tab) 6 mg PO Q24H [facility] Dextrose/Water (50% Dextrose In Water 50 Ml Syringe) 50 ml IVPUSH ASDIRECTED PRN PRN Reason: Hypoglycemia Docusate Sodium (Docusate Sodium 100 Mg Cap) 100 mg PO Q12H PRN PRN Reason: Constipation Enoxaparin Sodium (Enoxaparin 150 Mg/1 Ml Syringe) 150 mg SUBCUT Q12H [facility] Last Admin: 01/25/21 10:46 Dose: 150 mg Documented by: Glucagon (Glucagon,Human Recombinant 1 Mg Vial) 1 mg IM ASDIRECTED PRN PRN Reason: Hypoglycemia Pantoprazole Sodium 40 mg/ (Sodium Chloride) 10 mls @ 300 mls/hr IV DAILY [facility] Last Admin: 01/25/21 08:01 Dose: 300 mls/hr Documented by: Remdesivir 100 mg/ Sodium (Chloride) 100 mls @ 100 mls/hr IV Q24H [facility] Stop: 01/27/21 20:59 Last Admin: 01/24/21 20:42 Dose: 100 mls/hr Documented by: Insulin Aspart (Insulin Aspart 100 Units/Ml 3 Ml Pen) 0 unit SUBCUT TIDAC [facility]; Protocol Last Admin: 01/25/21 11:18 Dose: 9 units Documented by: Discontinued Medications Aspirin (Aspirin 81 Mg Tab.Chew) 324 mg PO ONETIME ONE Stop: 01/23/21 19:58 Last Admin: 01/23/21 20:20 Dose: 324 mg Documented by: Dexamethasone (Dexamethasone 4 Mg/Ml Sdv) 6 mg IVPUSH ONETIME ONE Stop: 01/23/21 19:59 Last Admin: 01/23/21 20:52 Dose: 6 mg Documented by: Dexamethasone (Dexamethasone 4 Mg Tab) 6 mg PO Q14H [facility] Last Admin: 01/24/21 20:42 Dose: 6 mg Documented by: Dextrose/Water (50% Dextrose In Water 50 Ml Syringe) 50 ml IVPUSH ASDIRECTED PRN PRN Reason: Hypoglycemia Glucagon (Glucagon,Human Recombinant 1 Mg Vial) 1 mg IM ASDIRECTED PRN PRN Reason: Hypoglycemia Heparin Sodium (Porcine) (Heparin Sodium 5,000 Units/Ml Vial) 4,000 units IVPUSH .BOLUS ONE; Protocol Stop: 01/23/21 19:58 Last Admin: 01/23/21 20:53 Dose: 4,000 units Documented by: Heparin Sodium (Porcine) (Heparin Sodium 5,000 Units/Ml Vial) 0 units IVPUSH .BOLUS ONE Stop: 01/24/21 13:33 Last Admin: 01/24/21 14:04 Dose: 1,000 units Documented by: Heparin Sodium (Porcine) (Heparin Sodium 5,000 Units/Ml Vial) 1,000 units IVP [facility] ONETIME ONE Stop: 01/25/21 01:54 Last Admin: 01/25/21 02:03 Dose: 1,000 units Documented by: Heparin Sodium/Sodium Chloride (Heparin 25,000 Units In 1/2 Ns 500 Ml) 500 mls @ 37.776 mls/hr IV TITRATE [facility]; Protocol Stop: 01/25/21 10:15 Last Titration: 01/25/21 02:08 Dose: 16 units/kg/hr, 50.368 mls/hr Documented by: Remdesivir 200 mg/ Sodium (Chloride) 250 mls @ 250 mls/hr IV ONETIME ONE Stop: 01/23/21 19:59 Last Admin: 01/23/21 20:57 Dose: 250 mls/hr Documented by: Sodium Chloride (Normal Saline) 1,000 mls @ 125 mls/hr IV .Bolus ONE Stop: 01/24/21 05:33 Last Admin: 01/23/21 21:41 Dose: 125 mls/hr Documented by: Insulin Regular in 0.9 % NACL (Myxredlin In Ns 100 Unit/100 Ml) 100 mls @ 15.74 mls/hr IV TITRATE JOSE FRANCISCO; Protocol Last Titration: 01/24/21 05:37 Dose: 0.07 units/kg/hr, 11.8 mls/hr Documented by: Tocilizumab 800 mg/ Sodium (Chloride) 140 mls @ 140 mls/hr IV ONETIME ONE Stop: 01/24/21 03:58 Last Admin: 01/24/21 21:14 Dose: Not Given Documented by: Insulin Regular in 0.9 % NACL (Myxredlin In Ns 100 Unit/100 Ml) 100 mls @ 6 mls/hr IV TITRATE [facility] FR[facility]ISCO; Protocol Stop: 01/25/21 09:45 Last Titration: 01/25/21 00:46 Dose: 3 unit/hr, 3 mls/hr Documented by: Insulin Glargine (Insulin Glargine,Human Rec. Analog 100 Units/Ml 3 Ml Pen) 10 units SUBCUT DAILY ONE Stop: 01/25/21 10:16 Last Admin: 01/25/21 10:40 Dose: 10 units Documented by: Insulin Human Regular (Insulin Regular, Human 100 Units/Ml 10 Ml Vial) 5 unit IVPUSH ONETIME ONE; Protocol Stop: 01/23/21 19:58 Last Admin: 01/23/21 21:07 Dose: 5 unit Documented by: Insulin Human Regular (Insulin Regular, Human 100 Units/Ml 10 Ml Vial) 5 unit IVPUSH ONETIME ONE; Protocol Stop: 01/24/21 01:11 Last Admin: 01/24/21 01:15 Dose: 5 units Documented by: Insulin Human Regular (Insulin Regular, Human 100 Units/Ml 10 Ml Vial) 10 unit IVPUSH ONETIME ONE; Protocol Stop: 01/24/21 03:35 Last Admin: 01/24/21 03:44 Dose: 10 units Documented by: Iopamidol (Iopamidol 755 Mg/Ml 500 Ml Multipack Bottle) 50 ml IVPUSH ONETIME STA Stop: 01/24/21 01:53 Last Admin: 01/24/21 01:54 Dose: 50 ml Documented by: Sodium Chloride (Sodium Chloride 0.9% 10 Ml Syringe) 10 ml FLUSH ASDIRECTED PRN PRN Reason: Keep Vein Open Last Admin: 01/23/21 19:35 Dose: 10 ml Documented by: Sodium Chloride (Sodium Chloride 0.9% 2.5 Ml Syringe) 2.5 ml FLUSH ASDIRECTED PRN PRN Reason: Keep Vein Open Last Admin: 01/23/21 19:35 Dose: 2.5 ml Documented by: - Exam General: Alert, Oriented, Cooperative HEENT: Other (Dry mucous membranes) Neck: Trachea Midline Lungs: Other (Patient has CPAP in place, no abnormal breath sounds heard) Cardiovascular: Regular Rate, Regular Rhythm, No Murmurs GI/Abdominal Exam: Normal Bowel Sounds, Other (Patient has obese abdominal habitus) Extremities: Other (Bilateral pedal edema, left leg is markedly more edematous than the right) - Patient Data Lab Results Last 24 hrs: Laboratory Results - last 24 hr 01/24/21 01/24/21 01/24/21 Range/Units 11:53 12:03 12:03 WBC (4.0-11.0) K/uL RBC (4.50-5.90) M/uL Hgb (13.0-17.0) g/dL Hct (38.0-50.0) % MCV (80.0-98.0) fL MCH (27.0-32.0) pg MCHC (31.0-37.0) g/dL RDW Std Deviation (28.0-62.0) fl RDW Coeff of Linda (11.0-15.0) % Plt Count (150-400) K/uL MPV (7.40-12.00) fL Neut % (Auto) (48.0-80.0) % Lymph % (Auto) (16.0-40.0) % [place] % (Auto) (0.0-15.0) % Eos % (Auto) (0.0-7.0) % Baso % (Auto) (0.0-1.5) % Neut # (Auto) (1.4-5.7) K/uL Lymph # (Auto) (0.6-2.4) K/uL [place] # (Auto) (0.0-0.8) K/uL Eos # (Auto) (0.0-0.7) K/uL Baso # (Auto) (0.0-0.1) K/uL Nucleated RBC % /100WBC Nucleated RBCs # K/uL APTT 44.3 H (18.6-31.3) SEC ABG pH (7.35-7.45) ABG pCO2 (35-45) mmHG ABG pO2 (80-105) mmHG ABG HCO3 (22-26) mEq/L ABG Total CO2 (23-27) mmol/L ABG Base Excess (-2.0-3.0) Sodium (136-148) mmol/L Potassium (3.5-5.1) mmol/L Chloride (98-107) mmol/L Carbon Dioxide (21.0-32.0) mmol/L BUN (7.0-18.0) mg/dL Creatinine (0.8-1.3) mg/dL Est Cr Clr Drug Dosing mL/min Estimated GFR (MDRD) ml/min Glucose (74-106) mg/dL POC Glucose 294 H (70-99) mg/dL Lactic Acid 2.5 H* (0.4-2.0) mmol/L Calcium (8.5-10.1) mg/dL Total Bilirubin (0.2-1.0) mg/dL AST (15-37) IU/L ALT (14-63) IU/L Alkaline Phosphatase (46-116) U/L Troponin I (0.000-0.056) ng/mL Total Protein (6.4-8.2) g/dL Albumin (3.4-5.0) g/dL Globulin (2.6-4.0) g/dL Albumin/Globulin Ratio (0.9-1.6) 01/24/21 01/24/21 01/24/21 Range/Units 12:03 13:13 14:10 WBC (4.0-11.0) K/uL RBC (4.50-5.90) M/uL Hgb (13.0-17.0) g/dL Hct (38.0-50.0) % MCV (80.0-98.0) fL MCH (27.0-32.0) pg MCHC (31.0-37.0) g/dL RDW Std Deviation (28.0-62.0) fl RDW Coeff of Linda (11.0-15.0) % Plt Count (150-400) K/uL MPV (7.40-12.00) fL Neut % (Auto) (48.0-80.0) % Lymph % (Auto) (16.0-40.0) % [place] % (Auto) (0.0-15.0) % Eos % (Auto) (0.0-7.0) % Baso % (Auto) (0.0-1.5) % Neut # (Auto) (1.4-5.7) K/uL Lymph # (Auto) (0.6-2.4) K/uL [place] # (Auto) (0.0-0.8) K/uL Eos # (Auto) (0.0-0.7) K/uL Baso # (Auto) (0.0-0.1) K/uL Nucleated RBC % /100WBC Nucleated RBCs # K/uL APTT (18.6-31.3) SEC ABG pH (7.35-7.45) ABG pCO2 (35-45) mmHG ABG pO2 (80-105) mmHG ABG HCO3 (22-26) mEq/L ABG Total CO2 (23-27) mmol/L ABG Base Excess (-2.0-3.0) Sodium (136-148) mmol/L Potassium (3.5-5.1) mmol/L Chloride (98-107) mmol/L Carbon Dioxide (21.0-32.0) mmol/L BUN (7.0-18.0) mg/dL Creatinine (0.8-1.3) mg/dL Est Cr Clr Drug Dosing mL/min Estimated GFR (MDRD) ml/min Glucose (74-106) mg/dL POC Glucose 307 H 291 H (70-99) mg/dL Lactic Acid (0.4-2.0) mmol/L Calcium (8.5-10.1) mg/dL Total Bilirubin (0.2-1.0) mg/dL AST (15-37) IU/L ALT (14-63) IU/L Alkaline Phosphatase (46-116) U/L Troponin I 0.904 H* (0.000-0.056) ng/mL Total Protein (6.4-8.2) g/dL Albumin (3.4-5.0) g/dL Globulin (2.6-4.0) g/dL Albumin/Globulin Ratio (0.9-1.6) 01/24/21 01/24/21 01/24/21 Range/Units 15:07 15:30 15:54 WBC (4.0-11.0) K/uL RBC (4.50-5.90) M/uL Hgb (13.0-17.0) g/dL Hct (38.0-50.0) % MCV (80.0-98.0) fL MCH (27.0-32.0) pg MCHC (31.0-37.0) g/dL RDW Std Deviation (28.0-62.0) fl RDW Coeff of Linda (11.0-15.0) % Plt Count (150-400) K/uL MPV (7.40-12.00) fL Neut % (Auto) (48.0-80.0) % Lymph % (Auto) (16.0-40.0) % [place] % (Auto) (0.0-15.0) % Eos % (Auto) (0.0-7.0) % Baso % (Auto) (0.0-1.5) % Neut # (Auto) (1.4-5.7) K/uL Lymph # (Auto) (0.6-2.4) K/uL [place] # (Auto) (0.0-0.8) K/uL Eos # (Auto) (0.0-0.7) K/uL Baso # (Auto) (0.0-0.1) K/uL Nucleated RBC % /100WBC Nucleated RBCs # K/uL APTT (18.6-31.3) SEC ABG pH 7.45 (7.35-7.45) ABG pCO2 34 L (35-45) mmHG ABG pO2 63 L (80-105) mmHG ABG HCO3 23 (22-26) mEq/L ABG Total CO2 19.9 L (23-27) mmol/L ABG Base Excess 0.0 (-2.0-3.0) Sodium (136-148) mmol/L Potassium (3.5-5.1) mmol/L Chloride (98-107) mmol/L Carbon Dioxide (21.0-32.0) mmol/L BUN (7.0-18.0) mg/dL Creatinine (0.8-1.3) mg/dL Est Cr Clr Drug Dosing mL/min Estimated GFR (MDRD) ml/min Glucose (74-106) mg/dL POC Glucose 260 H 292 H (70-99) mg/dL Lactic Acid (0.4-2.0) mmol/L Calcium (8.5-10.1) mg/dL Total Bilirubin (0.2-1.0) mg/dL AST (15-37) IU/L ALT (14-63) IU/L Alkaline Phosphatase (46-116) U/L Troponin I (0.000-0.056) ng/mL Total Protein (6.4-8.2) g/dL Albumin (3.4-5.0) g/dL Globulin (2.6-4.0) g/dL Albumin/Globulin Ratio (0.9-1.6) 01/24/21 01/24/21 01/24/21 Range/Units 16:55 18:02 18:02 WBC (4.0-11.0) K/uL RBC (4.50-5.90) M/uL Hgb (13.0-17.0) g/dL Hct (38.0-50.0) % MCV (80.0-98.0) fL MCH (27.0-32.0) pg MCHC (31.0-37.0) g/dL RDW Std Deviation (28.0-62.0) fl RDW Coeff of Linda (11.0-15.0) % Plt Count (150-400) K/uL MPV (7.40-12.00) fL Neut % (Auto) (48.0-80.0) % Lymph % (Auto) (16.0-40.0) % [place] % (Auto) (0.0-15.0) % Eos % (Auto) (0.0-7.0) % Baso % (Auto) (0.0-1.5) % Neut # (Auto) (1.4-5.7) K/uL Lymph # (Auto) (0.6-2.4) K/uL [place] # (Auto) (0.0-0.8) K/uL Eos # (Auto) (0.0-0.7) K/uL Baso # (Auto) (0.0-0.1) K/uL Nucleated RBC % /100WBC Nucleated RBCs # K/uL APTT 50.1 H (18.6-31.3) SEC ABG pH (7.35-7.45) ABG pCO2 (35-45) mmHG ABG pO2 (80-105) mmHG ABG HCO3 (22-26) mEq/L ABG Total CO2 (23-27) mmol/L ABG Base Excess (-2.0-3.0) Sodium (136-148) mmol/L Potassium (3.5-5.1) mmol/L Chloride (98-107) mmol/L Carbon Dioxide (21.0-32.0) mmol/L BUN (7.0-18.0) mg/dL Creatinine (0.8-1.3) mg/dL Est Cr Clr Drug Dosing mL/min Estimated GFR (MDRD) ml/min Glucose (74-106) mg/dL POC Glucose 255 H (70-99) mg/dL Lactic Acid 2.4 H* (0.4-2.0) mmol/L Calcium (8.5-10.1) mg/dL Total Bilirubin (0.2-1.0) mg/dL AST (15-37) IU/L ALT (14-63) IU/L Alkaline Phosphatase (46-116) U/L Troponin I (0.000-0.056) ng/mL Total Protein (6.4-8.2) g/dL Albumin (3.4-5.0) g/dL Globulin (2.6-4.0) g/dL Albumin/Globulin Ratio (0.9-1.6) 01/24/21 01/24/21 01/24/21 Range/Units 18:02 18:02 19:49 WBC (4.0-11.0) K/uL RBC (4.50-5.90) M/uL Hgb (13.0-17.0) g/dL Hct (38.0-50.0) % MCV (80.0-98.0) fL MCH (27.0-32.0) pg MCHC (31.0-37.0) g/dL RDW Std Deviation (28.0-62.0) fl RDW Coeff of Linda (11.0-15.0) % Plt Count (150-400) K/uL MPV (7.40-12.00) fL Neut % (Auto) (48.0-80.0) % Lymph % (Auto) (16.0-40.0) % [place] % (Auto) (0.0-15.0) % Eos % (Auto) (0.0-7.0) % Baso % (Auto) (0.0-1.5) % Neut # (Auto) (1.4-5.7) K/uL Lymph # (Auto) (0.6-2.4) K/uL [place] # (Auto) (0.0-0.8) K/uL Eos # (Auto) (0.0-0.7) K/uL Baso # (Auto) (0.0-0.1) K/uL Nucleated RBC % /100WBC Nucleated RBCs # K/uL APTT (18.6-31.3) SEC ABG pH (7.35-7.45) ABG pCO2 (35-45) mmHG ABG pO2 (80-105) mmHG ABG HCO3 (22-26) mEq/L ABG Total CO2 (23-27) mmol/L ABG Base Excess (-2.0-3.0) Sodium (136-148) mmol/L Potassium (3.5-5.1) mmol/L Chloride (98-107) mmol/L Carbon Dioxide (21.0-32.0) mmol/L BUN (7.0-18.0) mg/dL Creatinine (0.8-1.3) mg/dL Est Cr Clr Drug Dosing mL/min Estimated GFR (MDRD) ml/min Glucose (74-106) mg/dL POC Glucose 244 H 266 H (70-99) mg/dL Lactic Acid (0.4-2.0) mmol/L Calcium (8.5-10.1) mg/dL Total Bilirubin (0.2-1.0) mg/dL AST (15-37) IU/L ALT (14-63) IU/L Alkaline Phosphatase (46-116) U/L Troponin I 0.659 H* (0.000-0.056) ng/mL Total Protein (6.4-8.2) g/dL Albumin (3.4-5.0) g/dL Globulin (2.6-4.0) g/dL Albumin/Globulin Ratio (0.9-1.6) 01/24/21 01/24/21 01/24/21 Range/Units 20:49 21:15 21:35 WBC (4.0-11.0) K/uL RBC (4.50-5.90) M/uL Hgb (13.0-17.0) g/dL Hct (38.0-50.0) % MCV (80.0-98.0) fL MCH (27.0-32.0) pg MCHC (31.0-37.0) g/dL RDW Std Deviation (28.0-62.0) fl RDW Coeff of Linda (11.0-15.0) % Plt Count (150-400) K/uL MPV (7.40-12.00) fL Neut % (Auto) (48.0-80.0) % Lymph % (Auto) (16.0-40.0) % [place] % (Auto) (0.0-15.0) % Eos % (Auto) (0.0-7.0) % Baso % (Auto) (0.0-1.5) % Neut # (Auto) (1.4-5.7) K/uL Lymph # (Auto) (0.6-2.4) K/uL [place] # (Auto) (0.0-0.8) K/uL Eos # (Auto) (0.0-0.7) K/uL Baso # (Auto) (0.0-0.1) K/uL Nucleated RBC % /100WBC Nucleated RBCs # K/uL APTT (18.6-31.3) SEC ABG pH 7.45 (7.35-7.45) ABG pCO2 34 L (35-45) mmHG ABG pO2 65 L (80-105) mmHG ABG HCO3 24 (22-26) mEq/L ABG Total CO2 19.3 L (23-27) mmol/L ABG Base Excess 0.4 (-2.0-3.0) Sodium (136-148) mmol/L Potassium (3.5-5.1) mmol/L Chloride (98-107) mmol/L Carbon Dioxide (21.0-32.0) mmol/L BUN (7.0-18.0) mg/dL Creatinine (0.8-1.3) mg/dL Est Cr Clr Drug Dosing mL/min Estimated GFR (MDRD) ml/min Glucose (74-106) mg/dL POC Glucose 225 H (70-99) mg/dL Lactic Acid 2.1 H* (0.4-2.0) mmol/L Calcium (8.5-10.1) mg/dL Total Bilirubin (0.2-1.0) mg/dL AST (15-37) IU/L ALT (14-63) IU/L Alkaline Phosphatase (46-116) U/L Troponin I (0.000-0.056) ng/mL Total Protein (6.4-8.2) g/dL Albumin (3.4-5.0) g/dL Globulin (2.6-4.0) g/dL Albumin/Globulin Ratio (0.9-1.6) 01/24/21 01/24/21 01/24/21 Range/Units 21:36 22:48 23:25 WBC (4.0-11.0) K/uL RBC (4.50-5.90) M/uL Hgb (13.0-17.0) g/dL Hct (38.0-50.0) % MCV (80.0-98.0) fL MCH (27.0-32.0) pg MCHC (31.0-37.0) g/dL RDW Std Deviation (28.0-62.0) fl RDW Coeff of Linda (11.0-15.0) % Plt Count (150-400) K/uL MPV (7.40-12.00) fL Neut % (Auto) (48.0-80.0) % Lymph % (Auto) (16.0-40.0) % [place] % (Auto) (0.0-15.0) % Eos % (Auto) (0.0-7.0) % Baso % (Auto) (0.0-1.5) % Neut # (Auto) (1.4-5.7) K/uL Lymph # (Auto) (0.6-2.4) K/uL [place] # (Auto) (0.0-0.8) K/uL Eos # (Auto) (0.0-0.7) K/uL Baso # (Auto) (0.0-0.1) K/uL Nucleated RBC % /100WBC Nucleated RBCs # K/uL APTT (18.6-31.3) SEC ABG pH (7.35-7.45) ABG pCO2 (35-45) mmHG ABG pO2 (80-105) mmHG ABG HCO3 (22-26) mEq/L ABG Total CO2 (23-27) mmol/L ABG Base Excess (-2.0-3.0) Sodium (136-148) mmol/L Potassium (3.5-5.1) mmol/L Chloride (98-107) mmol/L Carbon Dioxide (21.0-32.0) mmol/L BUN (7.0-18.0) mg/dL Creatinine (0.8-1.3) mg/dL Est Cr Clr Drug Dosing mL/min Estimated GFR (MDRD) ml/min Glucose (74-106) mg/dL POC Glucose 243 H 246 H 238 H (70-99) mg/dL Lactic Acid (0.4-2.0) mmol/L Calcium (8.5-10.1) mg/dL Total Bilirubin (0.2-1.0) mg/dL AST (15-37) IU/L ALT (14-63) IU/L Alkaline Phosphatase (46-116) U/L Troponin I (0.000-0.056) ng/mL Total Protein (6.4-8.2) g/dL Albumin (3.4-5.0) g/dL Globulin (2.6-4.0) g/dL Albumin/Globulin Ratio (0.9-1.6) 01/25/21 01/25/21 01/25/21 Range/Units 00:46 01:00 01:00 WBC (4.0-11.0) K/uL RBC (4.50-5.90) M/uL Hgb (13.0-17.0) g/dL Hct (38.0-50.0) % MCV (80.0-98.0) fL MCH (27.0-32.0) pg MCHC (31.0-37.0) g/dL RDW Std Deviation (28.0-62.0) fl RDW Coeff of Linda (11.0-15.0) % Plt Count (150-400) K/uL MPV (7.40-12.00) fL Neut % (Auto) (48.0-80.0) % Lymph % (Auto) (16.0-40.0) % [place] % (Auto) (0.0-15.0) % Eos % (Auto) (0.0-7.0) % Baso % (Auto) (0.0-1.5) % Neut # (Auto) (1.4-5.7) K/uL Lymph # (Auto) (0.6-2.4) K/uL [place] # (Auto) (0.0-0.8) K/uL Eos # (Auto) (0.0-0.7) K/uL Baso # (Auto) (0.0-0.1) K/uL Nucleated RBC % /100WBC Nucleated RBCs # K/uL APTT 45.1 H (18.6-31.3) SEC ABG pH (7.35-7.45) ABG pCO2 (35-45) mmHG ABG pO2 (80-105) mmHG ABG HCO3 (22-26) mEq/L ABG Total CO2 (23-27) mmol/L ABG Base Excess (-2.0-3.0) Sodium (136-148) mmol/L Potassium (3.5-5.1) mmol/L Chloride (98-107) mmol/L Carbon Dioxide (21.0-32.0) mmol/L BUN (7.0-18.0) mg/dL Creatinine (0.8-1.3) mg/dL Est Cr Clr Drug Dosing mL/min Estimated GFR (MDRD) ml/min Glucose (74-106) mg/dL POC Glucose 275 H (70-99) mg/dL Lactic Acid 2.1 H* (0.4-2.0) mmol/L Calcium (8.5-10.1) mg/dL Total Bilirubin (0.2-1.0) mg/dL AST (15-37) IU/L ALT (14-63) IU/L Alkaline Phosphatase (46-116) U/L Troponin I (0.000-0.056) ng/mL Total Protein (6.4-8.2) g/dL Albumin (3.4-5.0) g/dL Globulin (2.6-4.0) g/dL Albumin/Globulin Ratio (0.9-1.6) 01/25/21 01/25/21 01/25/21 Range/Units 01:51 02:38 06:04 WBC (4.0-11.0) K/uL RBC (4.50-5.90) M/uL Hgb (13.0-17.0) g/dL Hct (38.0-50.0) % MCV (80.0-98.0) fL MCH (27.0-32.0) pg MCHC (31.0-37.0) g/dL RDW Std Deviation (28.0-62.0) fl RDW Coeff of Linda (11.0-15.0) % Plt Count (150-400) K/uL MPV (7.40-12.00) fL Neut % (Auto) (48.0-80.0) % Lymph % (Auto) (16.0-40.0) % [place] % (Auto) (0.0-15.0) % Eos % (Auto) (0.0-7.0) % Baso % (Auto) (0.0-1.5) % Neut # (Auto) (1.4-5.7) K/uL Lymph # (Auto) (0.6-2.4) K/uL [place] # (Auto) (0.0-0.8) K/uL Eos # (Auto) (0.0-0.7) K/uL Baso # (Auto) (0.0-0.1) K/uL Nucleated RBC % /100WBC Nucleated RBCs # K/uL APTT (18.6-31.3) SEC ABG pH (7.35-7.45) ABG pCO2 (35-45) mmHG ABG pO2 (80-105) mmHG ABG HCO3 (22-26) mEq/L ABG Total CO2 (23-27) mmol/L ABG Base Excess (-2.0-3.0) Sodium (136-148) mmol/L Potassium (3.5-5.1) mmol/L Chloride (98-107) mmol/L Carbon Dioxide (21.0-32.0) mmol/L BUN (7.0-18.0) mg/dL Creatinine (0.8-1.3) mg/dL Est Cr Clr Drug Dosing mL/min Estimated GFR (MDRD) ml/min Glucose (74-106) mg/dL POC Glucose 255 H 256 H 268 H (70-99) mg/dL Lactic Acid (0.4-2.0) mmol/L Calcium (8.5-10.1) mg/dL Total Bilirubin (0.2-1.0) mg/dL AST (15-37) IU/L ALT (14-63) IU/L Alkaline Phosphatase (46-116) U/L Troponin I (0.000-0.056) ng/mL Total Protein (6.4-8.2) g/dL Albumin (3.4-5.0) g/dL Globulin (2.6-4.0) g/dL Albumin/Globulin Ratio (0.9-1.6) 01/25/21 01/25/21 01/25/21 Range/Units :21 06:21 06:21 WBC 10.94 (4.0-11.0) K/uL RBC 5.11 (4.50-5.90) M/uL Hgb 15.4 (13.0-17.0) g/dL Hct 43.6 (38.0-50.0) % MCV 85.3 (80.0-98.0) fL MCH 30.1 (27.0-32.0) pg MCHC 35.3 (31.0-37.0) g/dL RDW Std Deviation 40.9 (28.0-62.0) fl RDW Coeff of Linda 13 (11.0-15.0) % Plt Count 162 (150-400) K/uL MPV 11.70 (7.40-12.00) fL Neut % (Auto) 86.3 H (48.0-80.0) % Lymph % (Auto) 10.6 L (16.0-40.0) % [place] % (Auto) 2.6 (0.0-15.0) % Eos % (Auto) 0.0 (0.0-7.0) % Baso % (Auto) 0.5 (0.0-1.5) % Neut # (Auto) 9.5 H (1.4-5.7) K/uL Lymph # (Auto) 1.2 (0.6-2.4) K/uL [place] # (Auto) 0.3 (0.0-0.8) K/uL Eos # (Auto) 0.0 (0.0-0.7) K/uL Baso # (Auto) 0.1 (0.0-0.1) K/uL Nucleated RBC % 0.0 /100WBC Nucleated RBCs # 0 K/uL APTT 52.6 H (18.6-31.3) SEC ABG pH (7.35-7.45) ABG pCO2 (35-45) mmHG ABG pO2 (80-105) mmHG ABG HCO3 (22-26) mEq/L ABG Total CO2 (23-27) mmol/L ABG Base Excess (-2.0-3.0) Sodium (136-148) mmol/L Potassium (3.5-5.1) mmol/L Chloride (98-107) mmol/L Carbon Dioxide (21.0-32.0) mmol/L BUN (7.0-18.0) mg/dL Creatinine (0.8-1.3) mg/dL Est Cr Clr Drug Dosing mL/min Estimated GFR (MDRD) ml/min Glucose (74-106) mg/dL POC Glucose (70-99) mg/dL Lactic Acid 1.9 (0.4-2.0) mmol/L Calcium (8.5-10.1) mg/dL Total Bilirubin (0.2-1.0) mg/dL AST (15-37) IU/L ALT (14-63) IU/L Alkaline Phosphatase (46-116) U/L Troponin I (0.000-0.056) ng/mL Total Protein (6.4-8.2) g/dL Albumin (3.4-5.0) g/dL Globulin (2.6-4.0) g/dL Albumin/Globulin Ratio (0.9-1.6) 01/25/21 01/25/21 01/25/21 Range/Units 06:21 06:21 07:00 WBC (4.0-11.0) K/uL RBC (4.50-5.90) M/uL Hgb (13.0-17.0) g/dL Hct (38.0-50.0) % MCV (80.0-98.0) fL MCH (27.0-32.0) pg MCHC (31.0-37.0) g/dL RDW Std Deviation (28.0-62.0) fl RDW Coeff of Linda (11.0-15.0) % Plt Count (150-400) K/uL MPV (7.40-12.00) fL Neut % (Auto) (48.0-80.0) % Lymph % (Auto) (16.0-40.0) % [place] % (Auto) (0.0-15.0) % Eos % (Auto) (0.0-7.0) % Baso % (Auto) (0.0-1.5) % Neut # (Auto) (1.4-5.7) K/uL Lymph # (Auto) (0.6-2.4) K/uL [place] # (Auto) (0.0-0.8) K/uL Eos # (Auto) (0.0-0.7) K/uL Baso # (Auto) (0.0-0.1) K/uL Nucleated RBC % /100WBC Nucleated RBCs # K/uL APTT (18.6-31.3) SEC ABG pH 7.44 (7.35-7.45) ABG pCO2 37 (35-45) mmHG ABG pO2 61 L (80-105) mmHG ABG HCO3 25 (22-26) mEq/L ABG Total CO2 21.3 L (23-27) mmol/L ABG Base Excess 0.6 (-2.0-3.0) Sodium 131 L (136-148) mmol/L Potassium 4.3 (3.5-5.1) mmol/L Chloride 98 (98-107) mmol/L Carbon Dioxide 21.6 (21.0-32.0) mmol/L BUN 38 H (7.0-18.0) mg/dL Creatinine 1.1 (0.8-1.3) mg/dL Est Cr Clr Drug Dosing 83.28 mL/min Estimated GFR (MDRD) > 60.0 ml/min Glucose 261 H (74-106) mg/dL POC Glucose (70-99) mg/dL Lactic Acid (0.4-2.0) mmol/L Calcium 7.6 L (8.5-10.1) mg/dL Total Bilirubin 0.8 (0.2-1.0) mg/dL AST 102 H (15-37) IU/L ALT 57 (14-63) IU/L Alkaline Phosphatase 79 (46-116) U/L Troponin I 0.242 H* (0.000-0.056) ng/mL Total Protein 6.3 L (6.4-8.2) g/dL Albumin 2.0 L (3.4-5.0) g/dL Globulin 4.3 H (2.6-4.0) g/dL Albumin/Globulin Ratio 0.5 L (0.9-1.6) 01/25/21 01/25/21 Range/Units 08:09 11:12 WBC (4.0-11.0) K/uL RBC (4.50-5.90) M/uL Hgb (13.0-17.0) g/dL Hct (38.0-50.0) % MCV (80.0-98.0) fL MCH (27.0-32.0) pg MCHC (31.0-37.0) g/dL RDW Std Deviation (28.0-62.0) fl RDW Coeff of Linda (11.0-15.0) % Plt Count (150-400) K/uL MPV (7.40-12.00) fL Neut % (Auto) (48.0-80.0) % Lymph % (Auto) (16.0-40.0) % [place] % (Auto) (0.0-15.0) % Eos % (Auto) (0.0-7.0) % Baso % (Auto) (0.0-1.5) % Neut # (Auto) (1.4-5.7) K/uL Lymph # (Auto) (0.6-2.4) K/uL [place] # (Auto) (0.0-0.8) K/uL Eos # (Auto) (0.0-0.7) K/uL Baso # (Auto) (0.0-0.1) K/uL Nucleated RBC % /100WBC Nucleated RBCs # K/uL APTT (18.6-31.3) SEC ABG pH (7.35-7.45) ABG pCO2 (35-45) mmHG ABG pO2 (80-105) mmHG ABG HCO3 (22-26) mEq/L ABG Total CO2 (23-27) mmol/L ABG Base Excess (-2.0-3.0) Sodium (136-148) mmol/L Potassium (3.5-5.1) mmol/L Chloride (98-107) mmol/L Carbon Dioxide (21.0-32.0) mmol/L BUN (7.0-18.0) mg/dL Creatinine (0.8-1.3) mg/dL Est Cr Clr Drug Dosing mL/min Estimated GFR (MDRD) ml/min Glucose (74-106) mg/dL POC Glucose 265 H 296 H (70-99) mg/dL Lactic Acid (0.4-2.0) mmol/L Calcium (8.5-10.1) mg/dL Total Bilirubin (0.2-1.0) mg/dL AST (15-37) IU/L ALT (14-63) IU/L Alkaline Phosphatase (46-116) U/L Troponin I (0.000-0.056) ng/mL Total Protein (6.4-8.2) g/dL Albumin (3.4-5.0) g/dL Globulin (2.6-4.0) g/dL Albumin/Globulin Ratio (0.9-1.6) Result Diagrams: 01/25/21 06:21 01/25/21 06:21 [place] Results Last 24 hrs: Microbiology 01/23/21 19:36 Aerobic Blood Culture - Preliminary Blood - Venous - Lab Draw NO GROWTH AFTER 1 DAY Anaerobic Blood Culture - Preliminary NO GROWTH AFTER 1 DAY 01/23/21 19:20 Aerobic Blood Culture - Preliminary Blood - Venous NO GROWTH AFTER 1 DAY Anaerobic Blood Culture - Preliminary NO GROWTH AFTER 1 DAY Sepsis Event Note - Evaluation Sepsis Screening Result: Possible Sepsis Risk - Focused Exam Vital Signs: Vital Signs Temp Resp BP Pulse Ox 01/25/21 11:00 28 H 141/76 H 90 L 01/25/21 10:00 29 H 141/76 H 86 L 01/25/21 09:30 25 H 90 L 01/25/21 09:00 20 143/79 H 89 L 01/25/21 08:00 97.3 F 25 H 135/81 88 L 01/25/21 07:00 26 H 140/71 91 L 01/25/21 06:00 26 H 141/76 H 90 L 01/25/21 05:00 22 H 128/61 90 L 01/25/21 04:00 98 F 27 H 146/82 H 89 L 01/25/21 03:00 22 H 130/72 89 L 01/25/21 02:00 25 H 156/90 H 88 L 01/25/21 01:00 30 H 165/86 H 90 L 01/25/21 00:00 97.8 F 28 H 149/35 H 89 L - Problem List & Annotations (1) MIS (acute kidney injury) SNOMED Code(s): 21025668, 66082902 Code(s): N17.9 - ACUTE KIDNEY FAILURE, UNSPECIFIED Status: Acute Current Visit: Yes (2) Hyponatremia SNOMED Code(s): 37352142 Code(s): E87.1 - HYPO-OSMOLALITY AND HYPONATREMIA Status: Acute Current Visit: Yes (3) Uncontrolled blood glucose SNOMED Code(s): 00414832, 732116101 Code(s): R73.09 - OTHER ABNORMAL GLUCOSE Status: Acute Current Visit: Yes (4) COVID-19 SNOMED Code(s): 316165824 Code(s): U07.1 - COVID-19 Status: Acute Current Visit: Yes (5) Constipation SNOMED Code(s): 68494636 Code(s): K59.00 - CONSTIPATION, UNSPECIFIED Status: Acute Current Visit: Yes - Problem List Review Problem List Initiated/Reviewed/Updated: Yes - My Orders Last 24 Hours: My Active Orders 01/24/21 16:30 Baricitinib [Olumiant] 4 mg PO DAILY 01/24/21 20:00 Docusate Sodium [Colace] 100 mg PO Q12H PRN Remdesivir 100 mg Sodium Chloride 0.9% [Normal Saline AdvBag] 100 ml IV Q24H 01/25/21 09:00 Pantoprazole [ProTONIX IV] 40 mg Sodium Chloride 0.9% [Normal Saline] 10 ml IV DAILY 01/25/21 12:00 ABG [BLOOD GAS ARTERIAL] [BG] Routine 01/25/21 13:45 PTT,PARTIAL THROMBOPLSTIN TIME [COAG] Q6H 01/25/21 19:45 PTT,PARTIAL THROMBOPLSTIN TIME [COAG] Q6H 01/26/21 01:45 PTT,PARTIAL THROMBOPLSTIN TIME [COAG] Q6H 01/26/21 05:11 CBC WITH AUTO DIFF [HEME] AM CMP [COMPREHENSIVE METABOLIC PN,CMP] [CHEM] AM 01/27/21 05:11 CBC WITH AUTO DIFF [HEME] AM CMP [COMPREHENSIVE METABOLIC PN,CMP] [CHEM] AM 01/28/21 05:11 CBC WITH AUTO DIFF [HEME] AM CMP [COMPREHENSIVE METABOLIC PN,CMP] [CHEM] AM - Plan Plan:: 1. Severe COVID-19 pneumonia -We will continue the patient on remdesivir 100 mg per IV route -We will continue the patient on dexamethasone 6 mg once a day per oral route -We will continue the patient on baricitinib 4 mg per oral route once a day -We have ordered another ABG for this afternoon and when those results return the eICU will be contacted for further recommendations. Discussions from this morning about possible intubation depends on local resources and bed availability as well as the comfort of the hospital and staff to perform such a procedure. The patient is at risk of barotrauma based on his tidal volume of 1.2. Based on eICU recommendations we increased his CPAP from 12 to 14, in hopes to increase his oxygenation. We will continue to monitor this patient and treat accordingly. 2. Elevated troponins -This may be due to demand ischemia, we will continue to monitor the patient for any signs of chest pain or cardiac abnormality. The latest troponin showed that his levels are downtrending. 3. Uncontrolled blood sugars -We could not control this patient's blood sugar on an insulin drip and as a result we will start Lantus, perform Accu-Cheks every 4 hours, and start a insulin sliding scale every 6 hours. 4. Acute kidney injury -The patient's creatinine level is now 1.1, which is better than yesterday, we will continue to monitor with CMP 5. Hyponatremia -We will continue to monitor with CMP, if levels fall below 130 we may need to replete sodium. <Pawan Wheeler - Last Filed: 01/26/21 19:03> - Patient Data Vitals - Most Recent: Last Vital Signs Temp 36.3 C 01/26/21 16:00 Pulse 91 01/24/21 21:00 Resp 28 H 01/26/21 18:00 BP 138/75 01/26/21 18:00 Pulse Ox 88 L 01/26/21 18:00 I&O - Last 24 Hours: Intake & Output 01/26/21 01/26/21 01/26/21 06:59 14:59 22:59 Intake Total 1700 Output Total 1750 Balance -50 Lab Results Last 24 Hours: Laboratory Results - last 24 hr 01/25/21 01/26/21 01/26/21 Range/Units 20:09 00:31 06:20 WBC 11.73 H (4.0-11.0) K/uL RBC 5.15 (4.50-5.90) M/uL Hgb 15.6 (13.0-17.0) g/dL Hct 44.8 (38.0-50.0) % MCV 87.0 (80.0-98.0) fL MCH 30.3 (27.0-32.0) pg MCHC 34.8 (31.0-37.0) g/dL RDW Std Deviation 41.8 (28.0-62.0) fl RDW Coeff of Linda 13 (11.0-15.0) % Plt Count 182 (150-400) K/uL MPV 11.70 (7.40-12.00) fL Neut % (Auto) 85.7 H (48.0-80.0) % Lymph % (Auto) 9.8 L (16.0-40.0) % [place] % (Auto) 4.1 (0.0-15.0) % Eos % (Auto) 0.1 (0.0-7.0) % Baso % (Auto) 0.3 (0.0-1.5) % Neut # (Auto) 10.1 H (1.4-5.7) K/uL Lymph # (Auto) 1.2 (0.6-2.4) K/uL [place] # (Auto) 0.5 (0.0-0.8) K/uL Eos # (Auto) 0.0 (0.0-0.7) K/uL Baso # (Auto) 0.0 (0.0-0.1) K/uL Nucleated RBC % 0.0 /100WBC Nucleated RBCs # 0 K/uL Sodium (136-148) mmol/L Potassium (3.5-5.1) mmol/L Chloride (98-107) mmol/L Carbon Dioxide (21.0-32.0) mmol/L BUN (7.0-18.0) mg/dL Creatinine (0.8-1.3) mg/dL Est Cr Clr Drug Dosing mL/min Estimated GFR (MDRD) ml/min Glucose (74-106) mg/dL POC Glucose 243 H 304 H (70-99) mg/dL Calcium (8.5-10.1) mg/dL Total Bilirubin (0.2-1.0) mg/dL AST (15-37) IU/L ALT (14-63) IU/L Alkaline Phosphatase (46-116) U/L Total Protein (6.4-8.2) g/dL Albumin (3.4-5.0) g/dL Globulin (2.6-4.0) g/dL Albumin/Globulin Ratio (0.9-1.6) 01/26/21 01/26/21 01/26/21 Range/Units 06:20 08:12 13:17 WBC (4.0-11.0) K/uL RBC (4.50-5.90) M/uL Hgb (13.0-17.0) g/dL Hct (38.0-50.0) % MCV (80.0-98.0) fL MCH (27.0-32.0) pg MCHC (31.0-37.0) g/dL RDW Std Deviation (28.0-62.0) fl RDW Coeff of Linda (11.0-15.0) % Plt Count (150-400) K/uL MPV (7.40-12.00) fL Neut % (Auto) (48.0-80.0) % Lymph % (Auto) (16.0-40.0) % [place] % (Auto) (0.0-15.0) % Eos % (Auto) (0.0-7.0) % Baso % (Auto) (0.0-1.5) % Neut # (Auto) (1.4-5.7) K/uL Lymph # (Auto) (0.6-2.4) K/uL [place] # (Auto) (0.0-0.8) K/uL Eos # (Auto) (0.0-0.7) K/uL Baso # (Auto) (0.0-0.1) K/uL Nucleated RBC % /100WBC Nucleated RBCs # K/uL Sodium 132 L (136-148) mmol/L Potassium 5.0 (3.5-5.1) mmol/L Chloride 98 (98-107) mmol/L Carbon Dioxide 26.8 (21.0-32.0) mmol/L BUN 36 H (7.0-18.0) mg/dL Creatinine 1.1 (0.8-1.3) mg/dL Est Cr Clr Drug Dosing 83.28 mL/min Estimated GFR (MDRD) > 60.0 ml/min Glucose 325 H (74-106) mg/dL POC Glucose 276 H 299 H (70-99) mg/dL Calcium 7.8 L (8.5-10.1) mg/dL Total Bilirubin 0.9 (0.2-1.0) mg/dL AST 66 H (15-37) IU/L ALT 60 (14-63) IU/L Alkaline Phosphatase 95 (46-116) U/L Total Protein 6.6 (6.4-8.2) g/dL Albumin 2.1 L (3.4-5.0) g/dL Globulin 4.5 H (2.6-4.0) g/dL Albumin/Globulin Ratio 0.5 L (0.9-1.6) 01/26/21 Range/Units 18:08 WBC (4.0-11.0) K/uL RBC (4.50-5.90) M/uL Hgb (13.0-17.0) g/dL Hct (38.0-50.0) % MCV (80.0-98.0) fL MCH (27.0-32.0) pg MCHC (31.0-37.0) g/dL RDW Std Deviation (28.0-62.0) fl RDW Coeff of Linda (11.0-15.0) % Plt Count (150-400) K/uL MPV (7.40-12.00) fL Neut % (Auto) (48.0-80.0) % Lymph % (Auto) (16.0-40.0) % [place] % (Auto) (0.0-15.0) % Eos % (Auto) (0.0-7.0) % Baso % (Auto) (0.0-1.5) % Neut # (Auto) (1.4-5.7) K/uL Lymph # (Auto) (0.6-2.4) K/uL [place] # (Auto) (0.0-0.8) K/uL Eos # (Auto) (0.0-0.7) K/uL Baso # (Auto) (0.0-0.1) K/uL Nucleated RBC % /100WBC Nucleated RBCs # K/uL Sodium (136-148) mmol/L Potassium (3.5-5.1) mmol/L Chloride (98-107) mmol/L Carbon Dioxide (21.0-32.0) mmol/L BUN (7.0-18.0) mg/dL Creatinine (0.8-1.3) mg/dL Est Cr Clr Drug Dosing mL/min Estimated GFR (MDRD) ml/min Glucose (74-106) mg/dL POC Glucose 333 H (70-99) mg/dL Calcium (8.5-10.1) mg/dL Total Bilirubin (0.2-1.0) mg/dL AST (15-37) IU/L ALT (14-63) IU/L Alkaline Phosphatase (46-116) U/L Total Protein (6.4-8.2) g/dL Albumin (3.4-5.0) g/dL Globulin (2.6-4.0) g/dL Albumin/Globulin Ratio (0.9-1.6) [place] Results Last 24 Hours: Microbiology 01/23/21 19:36 Aerobic Blood Culture - Preliminary Blood - Venous - Lab Draw NO GROWTH AFTER 2 DAYS Anaerobic Blood Culture - Preliminary NO GROWTH AFTER 2 DAYS 01/23/21 19:20 Aerobic Blood Culture - Preliminary Blood - Venous NO GROWTH AFTER 2 DAYS Anaerobic Blood Culture - Preliminary NO GROWTH AFTER 2 DAYS Med Orders - Current: Current Medications Acetaminophen (Acetaminophen 325 Mg Tab) 650 mg PO Q4H PRN PRN Reason: Pain/Fever Last Admin: 01/26/21 18:53 Dose: 650 mg Documented by: Albuterol/Ipratropium (Albuterol/Ipratropium 4 Gm Inhalation [place]) 1 - 2 gm INH Q4H [facility] Last Admin: 01/26/21 18:50 Dose: 1 puff Documented by: Albuterol/Ipratropium (Albuterol/Ipratropium 3.0-0.5 Mg/3 Ml Neb Soln) 3 ml NEB Q4HRRT PRN PRN Reason: Dyspnea Baricitinib (Baricitinib 2 Mg Tab) 4 mg PO DAILY [facility] Last Admin: 01/26/21 08:00 Dose: 4 mg Documented by: Benzonatate (Benzonatate 100 Mg Cap) 100 mg PO Q6H PRN PRN Reason: Cough Dexamethasone (Dexamethasone 4 Mg/Ml Sdv) 6 mg IVPUSH DAILY [facility] Last Admin: 01/26/21 08:00 Dose: 6 mg Documented by: Dextrose/Water (50% Dextrose In Water 50 Ml Syringe) 50 ml IVPUSH ASDIRECTED PRN PRN Reason: Hypoglycemia Docusate Sodium (Docusate Sodium 100 Mg Cap) 100 mg PO Q12H PRN PRN Reason: Constipation Enoxaparin Sodium (Enoxaparin 150 Mg/1 Ml Syringe) 150 mg SUBCUT Q12H [facility] Last Admin: 01/26/21 09:32 Dose: 150 mg Documented by: Glucagon (Glucagon,Human Recombinant 1 Mg Vial) 1 mg IM ASDIRECTED PRN PRN Reason: Hypoglycemia Guaifenesin (Guaifenesin 100 Mg/5 Ml Soln 5 Ml Ud Cup) 200 mg PO Q4H PRN PRN Reason: Cough Pantoprazole Sodium 40 mg/ (Sodium Chloride) 10 mls @ 300 mls/hr IV DAILY [facility] Last Admin: 01/26/21 08:00 Dose: 300 mls/hr Documented by: Remdesivir 100 mg/ Sodium (Chloride) 100 mls @ 100 mls/hr IV Q24H [facility] Stop: 01/27/21 20:59 Last Admin: 01/25/21 20:00 Dose: 100 mls/hr Documented by: Insulin Aspart (Insulin Aspart 100 Units/Ml 3 Ml Pen) 0 unit SUBCUT Q6H [facility]; Protocol Last Admin: 01/26/21 18:16 Dose: 12 units Documented by: Insulin Glargine (Insulin Glargine,Human Rec. Analog 100 Units/Ml 3 Ml Pen) 15 units SUBCUT DAILY [facility] Last Admin: 01/26/21 09:03 Dose: 15 units Documented by: Insulin Glargine (Insulin Glargine,Human Rec. Analog 100 Units/Ml 3 Ml Pen) 10 units SUBCUT BEDTIME [facility] Last Admin: 01/25/21 21:22 Dose: 10 units Documented by: Discontinued Medications Aspirin (Aspirin 81 Mg Tab.Chew) 324 mg PO ONETIME ONE Stop: 01/23/21 19:58 Last Admin: 01/23/21 20:20 Dose: 324 mg Documented by: Dexamethasone (Dexamethasone 4 Mg/Ml Sdv) 6 mg IVPUSH ONETIME ONE Stop: 01/23/21 19:59 Last Admin: 01/23/21 20:52 Dose: 6 mg Documented by: Dexamethasone (Dexamethasone 4 Mg Tab) 6 mg PO Q14H [facility] Last Admin: 01/24/21 20:42 Dose: 6 mg Documented by: Dexamethasone (Dexamethasone 4 Mg Tab) 6 mg PO Q24H [facility] Dextrose/Water (50% Dextrose In Water 50 Ml Syringe) 50 ml IVPUSH ASDIRECTED PRN PRN Reason: Hypoglycemia Dextrose/Water (50% Dextrose In Water 50 Ml Syringe) 50 ml IVPUSH ASDIRECTED PRN PRN Reason: Hypoglycemia Dextrose/Water (50% Dextrose In Water 50 Ml Syringe) 50 ml IVPUSH ASDIRECTED PRN PRN Reason: Hypoglycemia Glucagon (Glucagon,Human Recombinant 1 Mg Vial) 1 mg IM ASDIRECTED PRN PRN Reason: Hypoglycemia Glucagon (Glucagon,Human Recombinant 1 Mg Vial) 1 mg IM ASDIRECTED PRN PRN Reason: Hypoglycemia Glucagon (Glucagon,Human Recombinant 1 Mg Vial) 1 mg IM ASDIRECTED PRN PRN Reason: Hypoglycemia Heparin Sodium (Porcine) (Heparin Sodium 5,000 Units/Ml Vial) 4,000 units IVPUSH .BOLUS ONE; Protocol Stop: 01/23/21 19:58 Last Admin: 01/23/21 20:53 Dose: 4,000 units Documented by: Heparin Sodium (Porcine) (Heparin Sodium 5,000 Units/Ml Vial) 0 units IVPUSH .BOLUS ONE Stop: 01/24/21 13:33 Last Admin: 01/24/21 14:04 Dose: 1,000 units Documented by: Heparin Sodium (Porcine) (Heparin Sodium 5,000 Units/Ml Vial) 1,000 units IVPUSH ONETIME ONE Stop: 01/25/21 01:54 Last Admin: 01/25/21 02:03 Dose: 1,000 units Documented by: Heparin Sodium/Sodium Chloride (Heparin 25,000 Units In 1/2 Ns 500 Ml) 500 mls @ 37.776 mls/hr IV TITRATE [facility]; Protocol Stop: 01/25/21 10:15 Last Titration: 01/25/21 02:08 Dose: 16 units/kg/hr, 50.368 mls/hr Documented by: Remdesivir 200 mg/ Sodium (Chloride) 250 mls @ 250 mls/hr IV ONETIME ONE Stop: 01/23/21 19:59 Last Admin: 01/23/21 20:57 Dose: 250 mls/hr Documented by: Sodium Chloride (Normal Saline) 1,000 mls @ 125 mls/hr IV .Bolus ONE Stop: 01/24/21 05:33 Last Admin: 01/23/21 21:41 Dose: 125 mls/hr Documented by: Insulin Regular in 0.9 % NACL (Myxredlin In Ns 100 Unit/100 Ml) 100 mls @ 15.74 mls/hr IV TITRATE [facility]; Protocol Last Titration: 01/24/21 05:37 Dose: 0.07 units/kg/hr, 11.8 mls/hr Documented by: Tocilizumab 800 mg/ Sodium (Chloride) 140 mls @ 140 mls/hr IV ONETIME ONE Stop: 01/24/21 03:58 Last Admin: 01/24/21 21:14 Dose: Not Given Documented by: Insulin Regular in 0.9 % NACL (Myxredlin In Ns 100 Unit/100 Ml) 100 mls @ 6 mls/hr IV TITRATE [facility]; Protocol Stop: 01/25/21 09:45 Last Titration: 01/25/21 00:46 Dose: 3 unit/hr, 3 mls/hr Documented by: Insulin Aspart (Insulin Aspart 100 Units/Ml 3 Ml Pen) 0 unit SUBCUT TIDAC [facility]; Protocol Last Admin: 01/26/21 08:22 Dose: 9 units Documented by: Insulin Glargine (Insulin Glargine,Human Rec. Analog 100 Units/Ml 3 Ml Pen) 10 units SUBCUT DAILY ONE Stop: 01/25/21 10:16 Last Admin: 01/25/21 10:40 Dose: 10 units Documented by: Insulin Human Regular (Insulin Regular, Human 100 Units/Ml 10 Ml Vial) 5 unit IVPUSH ONETIME ONE; Protocol Stop: 01/23/21 19:58 Last Admin: 01/23/21 21:07 Dose: 5 unit Documented by: Insulin Human Regular (Insulin Regular, Human 100 Units/Ml 10 Ml Vial) 5 unit IVPUSH ONETIME ONE; Protocol Stop: 01/24/21 01:11 Last Admin: 01/24/21 01:15 Dose: 5 units Documented by: Insulin Human Regular (Insulin Regular, Human 100 Units/Ml 10 Ml Vial) 10 unit IVPUSH ONETIME ONE; Protocol Stop: 01/24/21 03:35 Last Admin: 01/24/21 03:44 Dose: 10 units Documented by: Iopamidol (Iopamidol 755 Mg/Ml 500 Ml Multipack Bottle) 50 ml IVPUSH ONETIME STA Stop: 01/24/21 01:53 Last Admin: 01/24/21 01:54 Dose: 50 ml Documented by: Sodium Chloride (Sodium Chloride 0.9% 10 Ml Syringe) 10 ml FLUSH ASDIRECTED PRN PRN Reason: Keep Vein Open Last Admin: 01/23/21 19:35 Dose: 10 ml Documented by: Sodium Chloride (Sodium Chloride 0.9% 2.5 Ml Syringe) 2.5 ml FLUSH ASDIRECTED PRN PRN Reason: Keep Vein Open Last Admin: 01/23/21 19:35 Dose: 2.5 ml Documented by: - Patient Data Lab Results Last 24 hrs: Laboratory Results - last 24 hr 01/25/21 01/26/21 01/26/21 Range/Units 20:09 00:31 06:20 WBC 11.73 H (4.0-11.0) K/uL RBC 5.15 (4.50-5.90) M/uL Hgb 15.6 (13.0-17.0) g/dL Hct 44.8 (38.0-50.0) % MCV 87.0 (80.0-98.0) fL MCH 30.3 (27.0-32.0) pg MCHC 34.8 (31.0-37.0) g/dL RDW Std Deviation 41.8 (28.0-62.0) fl RDW Coeff of Linda 13 (11.0-15.0) % Plt Count 182 (150-400) K/uL MPV 11.70 (7.40-12.00) fL Neut % (Auto) 85.7 H (48.0-80.0) % Lymph % (Auto) 9.8 L (16.0-40.0) % [place] % (Auto) 4.1 (0.0-15.0) % Eos % (Auto) 0.1 (0.0-7.0) % Baso % (Auto) 0.3 (0.0-1.5) % Neut # (Auto) 10.1 H (1.4-5.7) K/uL Lymph # (Auto) 1.2 (0.6-2.4) K/uL [place] # (Auto) 0.5 (0.0-0.8) K/uL Eos # (Auto) 0.0 (0.0-0.7) K/uL Baso # (Auto) 0.0 (0.0-0.1) K/uL Nucleated RBC % 0.0 /100WBC Nucleated RBCs # 0 K/uL Sodium (136-148) mmol/L Potassium (3.5-5.1) mmol/L Chloride (98-107) mmol/L Carbon Dioxide (21.0-32.0) mmol/L BUN (7.0-18.0) mg/dL Creatinine (0.8-1.3) mg/dL Est Cr Clr Drug Dosing mL/min Estimated GFR (MDRD) ml/min Glucose (74-106) mg/dL POC Glucose 243 H 304 H (70-99) mg/dL Calcium (8.5-10.1) mg/dL Total Bilirubin (0.2-1.0) mg/dL AST (15-37) IU/L ALT (14-63) IU/L Alkaline Phosphatase (46-116) U/L Total Protein (6.4-8.2) g/dL Albumin (3.4-5.0) g/dL Globulin (2.6-4.0) g/dL Albumin/Globulin Ratio (0.9-1.6) 01/26/21 01/26/21 01/26/21 Range/Units 06:20 08:12 13:17 WBC (4.0-11.0) K/uL RBC (4.50-5.90) M/uL Hgb (13.0-17.0) g/dL Hct (38.0-50.0) % MCV (80.0-98.0) fL MCH (27.0-32.0) pg MCHC (31.0-37.0) g/dL RDW Std Deviation (28.0-62.0) fl RDW Coeff of [place] (11.0-15.0) % Plt Count (150-400) K/uL MPV (7.40-12.00) fL Neut % (Auto) (48.0-80.0) % Lymph % (Auto) (16.0-40.0) % [place] % (Auto) (0.0-15.0) % Eos % (Auto) (0.0-7.0) % Baso % (Auto) (0.0-1.5) % Neut # (Auto) (1.4-5.7) K/uL Lymph # (Auto) (0.6-2.4) K/uL [place] # (Auto) (0.0-0.8) K/uL Eos # (Auto) (0.0-0.7) K/uL Baso # (Auto) (0.0-0.1) K/uL Nucleated RBC % /100WBC Nucleated RBCs # K/uL Sodium 132 L (136-148) mmol/L Potassium 5.0 (3.5-5.1) mmol/L Chloride 98 (98-107) mmol/L Carbon Dioxide 26.8 (21.0-32.0) mmol/L BUN 36 H (7.0-18.0) mg/dL Creatinine 1.1 (0.8-1.3) mg/dL Est Cr Clr Drug Dosing 83.28 mL/min Estimated GFR (MDRD) > 60.0 ml/min Glucose 325 H (74-106) mg/dL POC Glucose 276 H 299 H (70-99) mg/dL Calcium 7.8 L (8.5-10.1) mg/dL Total Bilirubin 0.9 (0.2-1.0) mg/dL AST 66 H (15-37) IU/L ALT 60 (14-63) IU/L Alkaline Phosphatase 95 (46-116) U/L Total Protein 6.6 (6.4-8.2) g/dL Albumin 2.1 L (3.4-5.0) g/dL Globulin 4.5 H (2.6-4.0) g/dL Albumin/Globulin Ratio 0.5 L (0.9-1.6) 01/26/21 Range/Units 18:08 WBC (4.0-11.0) K/uL RBC (4.50-5.90) M/uL Hgb (13.0-17.0) g/dL Hct (38.0-50.0) % MCV (80.0-98.0) fL MCH (27.0-32.0) pg MCHC (31.0-37.0) g/dL RDW Std Deviation (28.0-62.0) fl RDW Coeff of [place] (11.0-15.0) % Plt Count (150-400) K/uL MPV (7.40-12.00) fL Neut % (Auto) (48.0-80.0) % Lymph % (Auto) (16.0-40.0) % [place] % (Auto) (0.0-15.0) % Eos % (Auto) (0.0-7.0) % Baso % (Auto) (0.0-1.5) % Neut # (Auto) (1.4-5.7) K/uL Lymph # (Auto) (0.6-2.4) K/uL [place] # (Auto) (0.0-0.8) K/uL Eos # (Auto) (0.0-0.7) K/uL Baso # (Auto) (0.0-0.1) K/uL Nucleated RBC % /100WBC Nucleated RBCs # K/uL Sodium (136-148) mmol/L Potassium (3.5-5.1) mmol/L Chloride (98-107) mmol/L Carbon Dioxide (21.0-32.0) mmol/L BUN (7.0-18.0) mg/dL Creatinine (0.8-1.3) mg/dL Est Cr Clr Drug Dosing mL/min Estimated GFR (MDRD) ml/min Glucose (74-106) mg/dL POC Glucose 333 H (70-99) mg/dL Calcium (8.5-10.1) mg/dL Total Bilirubin (0.2-1.0) mg/dL AST (15-37) IU/L ALT (14-63) IU/L Alkaline Phosphatase (46-116) U/L Total Protein (6.4-8.2) g/dL Albumin (3.4-5.0) g/dL Globulin (2.6-4.0) g/dL Albumin/Globulin Ratio (0.9-1.6) Result Diagrams: 01/26/21 06:20 01/26/21 06:20 [place] Results Last 24 hrs: Microbiology 01/23/21 19:36 Aerobic Blood Culture - Preliminary Blood - Venous - Lab Draw NO GROWTH AFTER 2 DAYS Anaerobic Blood Culture - Preliminary NO GROWTH AFTER 2 DAYS 01/23/21 19:20 Aerobic Blood Culture - Preliminary Blood - Venous NO GROWTH AFTER 2 DAYS Anaerobic Blood Culture - Preliminary NO GROWTH AFTER 2 DAYS Sepsis Event Note - Focused Exam Vital Signs: Vital Signs Temp Resp BP Pulse Ox 01/26/21 18:00 28 H 138/75 88 L 01/26/21 17:00 24 H 153/76 H 87 L 01/26/21 16:00 36.3 C 26 H 146/70 H 88 L 01/26/21 15:00 31 H 151/78 H 89 L 01/26/21 14:00 22 H 136/80 91 L 01/26/21 13:00 22 H 132/61 90 L 01/26/21 12:00 36.4 C 33 H 89 L 01/26/21 11:00 28 H 133/77 93 L 01/26/21 10:00 34 H 157/82 H 90 L 01/26/21 09:00 31 H 163/78 H 90 L 01/26/21 08:00 36.5 C 32 H 178/76 H 88 L - Problem List & Annotations (1) Acute respiratory failure with hypoxia SNOMED Code(s): 41752108, 811233941 Code(s): J96.01 - ACUTE RESPIRATORY FAILURE WITH HYPOXIA Status: Acute Current Visit: Yes (2) MIS (acute kidney injury) SNOMED Code(s): 27506129, 35125577 Code(s): N17.9 - ACUTE KIDNEY FAILURE, UNSPECIFIED Status: Acute Current Visit: Yes (3) COVID-19 SNOMED Code(s): 361991974 Code(s): U07.1 - COVID-19 Status: Acute Current Visit: Yes (4) Uncontrolled blood glucose SNOMED Code(s): 33025405, 800687002 Code(s): R73.09 - OTHER ABNORMAL GLUCOSE Status: Acute Current Visit: Yes - My Orders Last 24 Hours: My Active Orders 01/25/21 21:00 Insulin Glarg,Human.Rec.Analog [LantUS Solostar] 10 units SUBCUT BEDTIME 01/25/21 23:39 RT Post Treatment Assessment [RC] Click to Edit RT Pre-Treatment Assessment [RC] Click to Edit 01/25/21 23:40 Albuterol/Ipratropium [DuoNeb 3.0-0.5 MG/3 ML] 3 ml NEB Q4HRRT PRN 01/25/21 23:41 RT Aerosol Therapy [RC] ASDIRECTED 01/25/21 23:45 Albuterol/Ipratropium [Combivent Respimat] 1 - 2 gm INH Q4H 01/26/21 09:00 Benzonatate [Tessalon Perles] 100 mg PO Q6H PRN Insulin Glarg,Human.Rec.Analog [LantUS Solostar] 15 units SUBCUT DAILY guaiFENesin [Robitussin] 200 mg PO Q4H PRN 01/26/21 13:00 Insulin Aspart [NovoLOG] 0 unit SUBCUT Q6H 01/26/21 18:37 Acetaminophen [TylenoL] 650 mg PO Q4H PRN 01/27/21 05:11 CBC WITH AUTO DIFF [HEME] AM CMP [COMPREHENSIVE METABOLIC PN,CMP] [CHEM] AM MAGNESIUM [CHEM] AM PHOSPHORUS [CHEM] AM 01/28/21 05:11 CBC WITH AUTO DIFF [HEME] AM CMP [COMPREHENSIVE METABOLIC PN,CMP] [CHEM] AM MAGNESIUM [CHEM] AM PHOSPHORUS [CHEM] AM - Plan Plan:: I have seen and evaluated the patient. I have discussed findings and treatment plan with resident. I agree with the assessment and plan in the following note.
[2021-01-25] MEDS: Dexamethasone 4 MG/ML SDV IVPUSH SCH (16:18)
[2021-01-25] MEDS: REMDESIVIR 100 MG in Sodium Chloride 0.9% 100 ML IV SCH (20:00)
[2021-01-25] MEDS ORDERED: Dexamethasone 4 MG Tab PO SCH (20:00)
[2021-01-25] MEDS: Insulin Glargine,Human Rec. Analog 100 Units/ML 3 ML Pen SUBCUT SCH (21:22)
[2021-01-25] MEDS: Albuterol/Ipratropium 4 GM Inhalation Spray INH SCH (23:57)
[2021-01-26] MEDS: Albuterol/Ipratropium 4 GM Inhalation Spray INH SCH ×6 (04:02→23:56)
[2021-01-26 07:31] LABS: BLOOD UREA NITROGEN,BUN 36 mg/dL (7.0-18.0); CARBON DIOXIDE,CO2 26.8 mmol/L (21.0-32.0); CHLORIDE,CL 98 mmol/L (98-107); GLUCOSE RANDOM 325 mg/dL (74-106); SODIUM,NA 132 mmol/L (136-148)
[2021-01-26] MEDS: Dexamethasone 4 MG/ML SDV IVPUSH SCH (08:00)
[2021-01-26] MEDS: Pantoprazole 40 MG in Sodium Chloride 0.9% 10 ML IV SCH (08:00)
[2021-01-26] MEDS: Insulin Aspart 100 Units/ML 3 ML Pen SUBCUT SCH ×3 (08:22→18:16)
[2021-01-26] MEDS ORDERED: Benzonatate 100 MG Cap PO PRN (09:00)
[2021-01-26] MEDS ORDERED: Insulin Glargine,Human Rec. Analog 100 Units/ML 3 ML Pen SUBCUT SCH (09:00)
[2021-01-26] MEDS ORDERED: guaiFENesin 100 MG/5 ML Soln 5 ML UD Cup PO PRN (09:00)
[2021-01-26] MEDS: Enoxaparin 150 MG/1 ML Syringe SUBCUT SCH ×2 (09:32→21:33)
--- NOTE | 2021-01-26 12:24 | PCM.PN ---
- General Info Date of Service: 01/26/21 Admission Dx/Problem (Free Text): Admission Diagnosis/Problem Admission Diagnosis/Problem Pneumonia Subjective Update: The patient is a 55-year-old morbidly obese male, on day 3 of service, currently patient is needing 85% FiO2 and saturating from 90 to 92%, patient is tolerating CPAP well. Functional Status: Reports: Pain Controlled, Urinating. Denies: Ambulating - Review of Systems General: Reports: Weakness, Fatigue. Denies: Fever, Malaise, Chills Pulmonary: Reports: Shortness of Breath, Cough. Denies: Pleuritic Chest Pain, Sputum Cardiovascular: Reports: Dyspnea on Exertion. Denies: Chest Pain, Palpitations Gastrointestinal: Denies: Abdominal Pain, Constipation, Decreased Appetite Genitourinary: Denies: Dysuria, Frequency, Burning Musculoskeletal: Denies: Neck Pain, Shoulder Pain, Arm Pain Skin: Denies: Cyanosis, Jaundice, Mottled, Pallor - Patient Data Vitals - Most Recent: Last Vital Signs Temp 36.5 C 01/26/21 08:00 Pulse 91 01/24/21 21:00 Resp 28 H 01/26/21 11:00 BP 133/77 01/26/21 11:00 Pulse Ox 93 L 01/26/21 11:00 Weight - Most Recent: 161.887 kg I&O - Last 24 Hours: Intake & Output 01/25/21 01/26/21 01/26/21 23:59 06:59 14:59 Intake Total Output Total Balance Lab Results Last 24 Hours: Laboratory Results - last 24 hr 01/25/21 01/25/21 01/26/21 Range/Units 16:12 20:09 00:31 WBC (4.0-11.0) K/uL RBC (4.50-5.90) M/uL Hgb (13.0-17.0) g/dL Hct (38.0-50.0) % MCV (80.0-98.0) fL MCH (27.0-32.0) pg MCHC (31.0-37.0) g/dL RDW Std Deviation (28.0-62.0) fl RDW Coeff of Linda (11.0-15.0) % Plt Count (150-400) K/uL MPV (7.40-12.00) fL Neut % (Auto) (48.0-80.0) % Lymph % (Auto) (16.0-40.0) % [place] % (Auto) (0.0-15.0) % Eos % (Auto) (0.0-7.0) % Baso % (Auto) (0.0-1.5) % Neut # (Auto) (1.4-5.7) K/uL Lymph # (Auto) (0.6-2.4) K/uL [place] # (Auto) (0.0-0.8) K/uL Eos # (Auto) (0.0-0.7) K/uL Baso # (Auto) (0.0-0.1) K/uL Nucleated RBC % /100WBC Nucleated RBCs # K/uL Sodium (136-148) mmol/L Potassium (3.5-5.1) mmol/L Chloride (98-107) mmol/L Carbon Dioxide (21.0-32.0) mmol/L BUN (7.0-18.0) mg/dL Creatinine (0.8-1.3) mg/dL Est Cr Clr Drug Dosing mL/min Estimated GFR (MDRD) ml/min Glucose (74-106) mg/dL POC Glucose 264 H 243 H 304 H (70-99) mg/dL Calcium (8.5-10.1) mg/dL Total Bilirubin (0.2-1.0) mg/dL AST (15-37) IU/L ALT (14-63) IU/L Alkaline Phosphatase (46-116) U/L Total Protein (6.4-8.2) g/dL Albumin (3.4-5.0) g/dL Globulin (2.6-4.0) g/dL Albumin/Globulin Ratio (0.9-1.6) 01/26/21 01/26/21 Range/Units 06:20 06:20 WBC 11.73 H (4.0-11.0) K/uL RBC 5.15 (4.50-5.90) M/uL Hgb 15.6 (13.0-17.0) g/dL Hct 44.8 (38.0-50.0) % MCV 87.0 (80.0-98.0) fL MCH 30.3 (27.0-32.0) pg MCHC 34.8 (31.0-37.0) g/dL RDW Std Deviation 41.8 (28.0-62.0) fl RDW Coeff of Linda 13 (11.0-15.0) % Plt Count 182 (150-400) K/uL MPV 11.70 (7.40-12.00) fL Neut % (Auto) 85.7 H (48.0-80.0) % Lymph % (Auto) 9.8 L (16.0-40.0) % [place] % (Auto) 4.1 (0.0-15.0) % Eos % (Auto) 0.1 (0.0-7.0) % Baso % (Auto) 0.3 (0.0-1.5) % Neut # (Auto) 10.1 H (1.4-5.7) K/uL Lymph # (Auto) 1.2 (0.6-2.4) K/uL [place] # (Auto) 0.5 (0.0-0.8) K/uL Eos # (Auto) 0.0 (0.0-0.7) K/uL Baso # (Auto) 0.0 (0.0-0.1) K/uL Nucleated RBC % 0.0 /100WBC Nucleated RBCs # 0 K/uL Sodium 132 L (136-148) mmol/L Potassium 5.0 (3.5-5.1) mmol/L Chloride 98 (98-107) mmol/L Carbon Dioxide 26.8 (21.0-32.0) mmol/L BUN 36 H (7.0-18.0) mg/dL Creatinine 1.1 (0.8-1.3) mg/dL Est Cr Clr Drug Dosing 83.28 mL/min Estimated GFR (MDRD) > 60.0 ml/min Glucose 325 H (74-106) mg/dL POC Glucose (70-99) mg/dL Calcium 7.8 L (8.5-10.1) mg/dL Total Bilirubin 0.9 (0.2-1.0) mg/dL AST 66 H (15-37) IU/L ALT 60 (14-63) IU/L Alkaline Phosphatase 95 (46-116) U/L Total Protein 6.6 (6.4-8.2) g/dL Albumin 2.1 L (3.4-5.0) g/dL Globulin 4.5 H (2.6-4.0) g/dL Albumin/Globulin Ratio 0.5 L (0.9-1.6) [facility] Results Last 24 Hours: Microbiology 01/23/21 19:36 Aerobic Blood Culture - Preliminary Blood - Venous - Lab Draw NO GROWTH AFTER 2 DAYS Anaerobic Blood Culture - Preliminary NO GROWTH AFTER 2 DAYS 01/23/21 19:20 Aerobic Blood Culture - Preliminary Blood - Venous NO GROWTH AFTER 2 DAYS Anaerobic Blood Culture - Preliminary NO GROWTH AFTER 2 DAYS Med Orders - Current: Current Medications Albuterol/Ipratropium (Albuterol/Ipratropium 4 Gm Inhalation [place]) 1 - 2 gm INH Q4H [facility] Last Admin: 01/26/21 11:17 Dose: 1 puff Documented by: Albuterol/Ipratropium (Albuterol/Ipratropium 3.0-0.5 Mg/3 Ml Neb Soln) 3 ml NEB Q4HRRT PRN PRN Reason: Dyspnea Baricitinib (Baricitinib 2 Mg Tab) 4 mg PO DAILY [facility] Last Admin: 01/26/21 08:00 Dose: 4 mg Documented by: Benzonatate (Benzonatate 100 Mg Cap) 100 mg PO Q6H PRN PRN Reason: Cough Dexamethasone (Dexamethasone 4 Mg/Ml Sdv) 6 mg IVPUSH DAILY [facility] Last Admin: 01/26/21 08:00 Dose: 6 mg Documented by: Dextrose/Water (50% Dextrose In Water 50 Ml Syringe) 50 ml IVPUSH ASDIRECTED PRN PRN Reason: Hypoglycemia Docusate Sodium (Docusate Sodium 100 Mg Cap) 100 mg PO Q12H PRN PRN Reason: Constipation Enoxaparin Sodium (Enoxaparin 150 Mg/1 Ml Syringe) 150 mg SUBCUT Q12H [facility] Last Admin: 01/26/21 09:32 Dose: 150 mg Documented by: Glucagon (Glucagon,Human Recombinant 1 Mg Vial) 1 mg IM ASDIRECTED PRN PRN Reason: Hypoglycemia Guaifenesin (Guaifenesin 100 Mg/5 Ml Soln 5 Ml Ud Cup) 200 mg PO Q4H PRN PRN Reason: Cough Pantoprazole Sodium 40 mg/ (Sodium Chloride) 10 mls @ 300 mls/hr IV DAILY [facility] Last Admin: 01/26/21 08:00 Dose: 300 mls/hr Documented by: Remdesivir 100 mg/ Sodium (Chloride) 100 mls @ 100 mls/hr IV Q24H [facility] Stop: 01/27/21 20:59 Last Admin: 01/25/21 20:00 Dose: 100 mls/hr Documented by: Insulin Aspart (Insulin Aspart 100 Units/Ml 3 Ml Pen) 0 unit SUBCUT Q6H JOSE FRANCISCO; Pr otocol Insulin Glargine (Insulin Glargine,Human Rec. Analog 100 Units/Ml 3 Ml Pen) 15 units SUBCUT DAILY [facility] Last Admin: 01/26/21 09:03 Dose: 15 units Documented by: Insulin Glargine (Insulin Glargine,Human Rec. Analog 100 Units/Ml 3 Ml Pen) 10 units SUBCUT BEDTIME [facility] Last Admin: 01/25/21 21:22 Dose: 10 units Documented by: Discontinued Medications Aspirin (Aspirin 81 Mg Tab.Chew) 324 mg PO ONETIME ONE Stop: 01/23/21 19:58 Last Admin: 01/23/21 20:20 Dose: 324 mg Documented by: Dexamethasone (Dexamethasone 4 Mg/Ml Sdv) 6 mg IVPUSH ONETIME ONE Stop: 01/23/21 19:59 Last Admin: 01/23/21 20:52 Dose: 6 mg Documented by: Dexamethasone (Dexamethasone 4 Mg Tab) 6 mg PO Q14H [facility] Last Admin: 01/24/21 20:42 Dose: 6 mg Documented by: Dexamethasone (Dexamethasone 4 Mg Tab) 6 mg PO Q24H [facility] Dextrose/Water (50% Dextrose In Water 50 Ml Syringe) 50 ml IVPUSH ASDIRECTED PRN PRN Reason: Hypoglycemia Dextrose/Water (50% Dextrose In Water 50 Ml Syringe) 50 ml IVPUSH ASDIRECTED PRN PRN Reason: Hypoglycemia Dextrose/Water (50% Dextrose In Water 50 Ml Syringe) 50 ml IVPUSH ASDIRECTED PRN PRN Reason: Hypoglycemia Glucagon (Glucagon,Human Recombinant 1 Mg Vial) 1 mg IM ASDIRECTED PRN PRN Reason: Hypoglycemia Glucagon (Glucagon,Human Recombinant 1 Mg Vial) 1 mg IM ASDIRECTED PRN PRN Reason: Hypoglycemia Glucagon (Glucagon,Human Recombinant 1 Mg Vial) 1 mg IM ASDIRECTED PRN PRN Reason: Hypoglycemia Heparin Sodium (Porcine) (Heparin Sodium 5,000 Units/Ml Vial) 4,000 units IVPUSH .BOLUS ONE; Protocol Stop: 01/23/21 19:58 Last Admin: 01/23/21 20:53 Dose: 4,000 units Documented by: Heparin Sodium (Porcine) (Heparin Sodium 5,000 Units/Ml Vial) 0 units IVPUSH .BOLUS ONE Stop: 01/24/21 13:33 Last Admin: 01/24/21 14:04 Dose: 1,000 units Documented by: Heparin Sodium (Porcine) (Heparin Sodium 5,000 Units/Ml Vial) 1,000 units IVPUSH ONETIME ONE Stop: 01/25/21 01:54 Last Admin: 01/25/21 02:03 Dose: 1,000 units Documented by: Heparin Sodium/Sodium Chloride (Heparin 25,000 Units In 1/2 Ns 500 Ml) 500 mls @ 37.776 mls/hr IV TITRATE JOSE FRANCISCO; Protocol Stop: 01/25/21 10:15 Last Titration: 01/25/21 02:08 Dose: 16 units/kg/hr, 50.368 mls/hr Documented by: Remdesivir 200 mg/ Sodium (Chloride) 250 mls @ 250 mls/hr IV ONETIME ONE Stop: 01/23/21 19:59 Last Admin: 01/23/21 20:57 Dose: 250 mls/hr Documented by: Sodium Chloride (Normal Saline) 1,000 mls @ 125 mls/hr IV .Bolus ONE Stop: 01/24/21 05:33 Last Admin: 01/23/21 21:41 Dose: 125 mls/hr Documented by: Insulin Regular in 0.9 % NACL (Myxredlin In Ns 100 Unit/100 Ml) 100 mls @ 15.74 mls/hr IV TITRATE JOSE FRANCISCO; Protocol Last Titration: 01/24/21 05:37 Dose: 0.07 units/kg/hr, 11.8 mls/hr Documented by: Tocilizumab 800 mg/ Sodium (Chloride) 140 mls @ 140 mls/hr IV ONETIME ONE Stop: 01/24/21 03:58 Last Admin: 01/24/21 21:14 Dose: Not Given Documented by: Insulin Regular in 0.9 % NACL (Myxredlin In Ns 100 Unit/100 Ml) 100 mls @ 6 mls/hr IV TITRATE JOSE FRANCISCO; Protocol Stop: 01/25/21 09:45 Last Titration: 01/25/21 00:46 Dose: 3 unit/hr, 3 mls/hr Documented by: Insulin Aspart (Insulin Aspart 100 Units/Ml 3 Ml Pen) 0 unit SUBCUT TIDAC JOSE FRANCISCO; Protocol Last Admin: 01/26/21 08:22 Dose: 9 units Documented by: Insulin Glargine (Insulin Glargine,Human Rec. Analog 100 Units/Ml 3 Ml Pen) 10 units SUBCUT DAILY ONE Stop: 01/25/21 10:16 Last Admin: 01/25/21 10:40 Dose: 10 units Documented by: Insulin Human Regular (Insulin Regular, Human 100 Units/Ml 10 Ml Vial) 5 unit IVPUSH ONETIME ONE; Protocol Stop: 01/23/21 19:58 Last Admin: 01/23/21 21:07 Dose: 5 unit Documented by: Insulin Human Regular (Insulin Regular, Human 100 Units/Ml 10 Ml Vial) 5 unit IVPUSH ONETIME ONE; Protocol Stop: 01/24/21 01:11 Last Admin: 01/24/21 01:15 Dose: 5 units Documented by: Insulin Human Regular (Insulin Regular, Human 100 Units/Ml 10 Ml Vial) 10 unit IVPUSH ONETIME ONE; Protocol Stop: 01/24/21 03:35 Last Admin: 01/24/21 03:44 Dose: 10 units Documented by: Iopamidol (Iopamidol 755 Mg/Ml 500 Ml Multipack Bottle) 50 ml IVPUSH ONETIME STA Stop: 01/24/21 01:53 Last Admin: 01/24/21 01:54 Dose: 50 ml Documented by: Sodium Chloride (Sodium Chloride 0.9% 10 Ml Syringe) 10 ml FLUSH ASDIRECTED PRN PRN Reason: Keep Vein Open Last Admin: 01/23/21 19:35 Dose: 10 ml Documented by: Sodium Chloride (Sodium Chloride 0.9% 2.5 Ml Syringe) 2.5 ml FLUSH ASDIRECTED PRN PRN Reason: Keep Vein Open Last Admin: 01/23/21 19:35 Dose: 2.5 ml Documented by: - Exam Quality Assessment: Supplemental Oxygen General: Alert, Oriented, Cooperative, Mild Distress Lungs: Normal Respiratory Effort, Decreased Breath Sounds, Crackles, Rales GI/Abdominal Exam: Normal Bowel Sounds, Soft, Non-Tender Back Exam: Normal Inspection, Full Range of Motion - Patient Data Lab Results Last 24 hrs: Laboratory Results - last 24 hr 01/25/21 01/25/21 01/26/21 Range/Units 16:12 20:09 00:31 WBC (4.0-11.0) K/uL RBC (4.50-5.90) M/uL Hgb (13.0-17.0) g/dL Hct (38.0-50.0) % MCV (80.0-98.0) fL MCH (27.0-32.0) pg MCHC (31.0-37.0) g/dL RDW Std Deviation (28.0-62.0) fl RDW Coeff of Linda (11.0-15.0) % Plt Count (150-400) K/uL MPV (7.40-12.00) fL Neut % (Auto) (48.0-80.0) % Lymph % (Auto) (16.0-40.0) % [place] % (Auto) (0.0-15.0) % Eos % (Auto) (0.0-7.0) % Baso % (Auto) (0.0-1.5) % Neut # (Auto) (1.4-5.7) K/uL Lymph # (Auto) (0.6-2.4) K/uL [place] # (Auto) (0.0-0.8) K/uL Eos # (Auto) (0.0-0.7) K/uL Baso # (Auto) (0.0-0.1) K/uL Nucleated RBC % /100WBC Nucleated RBCs # K/uL Sodium (136-148) mmol/L Potassium (3.5-5.1) mmol/L Chloride (98-107) mmol/L Carbon Dioxide (21.0-32.0) mmol/L BUN (7.0-18.0) mg/dL Creatinine (0.8-1.3) mg/dL Est Cr Clr Drug Dosing mL/min Estimated GFR (MDRD) ml/min Glucose (74-106) mg/dL POC Glucose 264 H 243 H 304 H (70-99) mg/dL Calcium (8.5-10.1) mg/dL Total Bilirubin (0.2-1.0) mg/dL AST (15-37) IU/L ALT (14-63) IU/L Alkaline Phosphatase (46-116) U/L Total Protein (6.4-8.2) g/dL Albumin (3.4-5.0) g/dL Globulin (2.6-4.0) g/dL Albumin/Globulin Ratio (0.9-1.6) 01/26/21 01/26/21 Range/Units 06:20 06:20 WBC 11.73 H (4.0-11.0) K/uL RBC 5.15 (4.50-5.90) M/uL Hgb 15.6 (13.0-17.0) g/dL Hct 44.8 (38.0-50.0) % MCV 87.0 (80.0-98.0) fL MCH 30.3 (27.0-32.0) pg MCHC 34.8 (31.0-37.0) g/dL RDW Std Deviation 41.8 (28.0-62.0) fl RDW Coeff of Linda 13 (11.0-15.0) % Plt Count 182 (150-400) K/uL MPV 11.70 (7.40-12.00) fL Neut % (Auto) 85.7 H (48.0-80.0) % Lymph % (Auto) 9.8 L (16.0-40.0) % [place] % (Auto) 4.1 (0.0-15.0) % Eos % (Auto) 0.1 (0.0-7.0) % Baso % (Auto) 0.3 (0.0-1.5) % Neut # (Auto) 10.1 H (1.4-5.7) K/uL Lymph # (Auto) 1.2 (0.6-2.4) K/uL [place] # (Auto) 0.5 (0.0-0.8) K/uL Eos # (Auto) 0.0 (0.0-0.7) K/uL Baso # (Auto) 0.0 (0.0-0.1) K/uL Nucleated RBC % 0.0 /100WBC Nucleated RBCs # 0 K/uL Sodium 132 L (136-148) mmol/L Potassium 5.0 (3.5-5.1) mmol/L Chloride 98 (98-107) mmol/L Carbon Dioxide 26.8 (21.0-32.0) mmol/L BUN 36 H (7.0-18.0) mg/dL Creatinine 1.1 (0.8-1.3) mg/dL Est Cr Clr Drug Dosing 83.28 mL/min Estimated GFR (MDRD) > 60.0 ml/min Glucose 325 H (74-106) mg/dL POC Glucose (70-99) mg/dL Calcium 7.8 L (8.5-10.1) mg/dL Total Bilirubin 0.9 (0.2-1.0) mg/dL AST 66 H (15-37) IU/L ALT 60 (14-63) IU/L Alkaline Phosphatase 95 (46-116) U/L Total Protein 6.6 (6.4-8.2) g/dL Albumin 2.1 L (3.4-5.0) g/dL Globulin 4.5 H (2.6-4.0) g/dL Albumin/Globulin Ratio 0.5 L (0.9-1.6) Result Diagrams: 01/26/21 06:20 01/26/21 06:20 [place] Results Last 24 hrs: Microbiology 01/23/21 19:36 Aerobic Blood Culture - Preliminary Blood - Venous - Lab Draw NO GROWTH AFTER 2 DAYS Anaerobic Blood Culture - Preliminary NO GROWTH AFTER 2 DAYS 01/23/21 19:20 Aerobic Blood Culture - Preliminary Blood - Venous NO GROWTH AFTER 2 DAYS Anaerobic Blood Culture - Preliminary NO GROWTH AFTER 2 DAYS Sepsis Event Note - Evaluation Sepsis Screening Result: Possible Sepsis Risk - Focused Exam Vital Signs: Vital Signs Temp Resp BP Pulse Ox 01/26/21 11:00 28 H 133/77 93 L 01/26/21 10:00 34 H 157/82 H 90 L 01/26/21 09:00 31 H 163/78 H 90 L 01/26/21 08:00 36.5 C 32 H 178/76 H 88 L 01/26/21 07:00 27 H 153/72 H 90 L 01/26/21 06:00 27 H 146/75 H 90 L 01/26/21 05:00 20 139/67 90 L 01/26/21 04:00 22 H 131/93 H 92 L 01/26/21 03:00 36.9 C 19 138/70 90 L 01/26/21 02:00 22 H 135/72 91 L 01/26/21 01:00 [employer] 17 121/70 92 L - Problem List & Annotations (1) Acute respiratory failure with hypoxia SNOMED Code(s): 06662759, 530028550 Code(s): J96.01 - ACUTE RESPIRATORY FAILURE WITH HYPOXIA Status: Acute Current Visit: Yes (2) MIS (acute kidney injury) SNOMED Code(s): 61409365, 17198967 Code(s): N17.9 - ACUTE KIDNEY FAILURE, UNSPECIFIED Status: Acute Current Visit: Yes (3) COVID-19 SNOMED Code(s): 029709339 Code(s): U07.1 - COVID-19 Status: Acute Current Visit: Yes (4) Uncontrolled blood glucose SNOMED Code(s): 77243466, 909888313 Code(s): R73.09 - OTHER ABNORMAL GLUCOSE Status: Acute Current Visit: Yes - Problem List Review Problem List Initiated/Reviewed/Updated: Yes - My Orders Last 24 Hours: My Active Orders 01/25/21 21:00 Insulin Glarg,Human.Rec.Analog [LantUS Solostar] 10 units SUBCUT BEDTIME 01/25/21 23:39 RT Post Treatment Assessment [RC] Click to Edit RT Pre-Treatment Assessment [RC] Click to Edit 01/25/21 23:40 Albuterol/Ipratropium [DuoNeb 3.0-0.5 MG/3 ML] 3 ml NEB Q4HRRT PRN 01/25/21 23:41 RT Aerosol Therapy [RC] ASDIRECTED 01/25/21 23:45 Albuterol/Ipratropium [Combivent Respimat] 1 - 2 gm INH Q4H 01/26/21 09:00 Benzonatate [Tessalon Perles] 100 mg PO Q6H PRN Insulin Glarg,Human.Rec.Analog [LantUS Solostar] 15 units SUBCUT DAILY guaiFENesin [Robitussin] 200 mg PO Q4H PRN 01/26/21 13:00 Insulin Aspart [NovoLOG] 0 unit SUBCUT Q6H - Plan Plan:: 1. Severe COVID-19 pneumonia -We will continue the patient on remdesivir 100 mg per IV route -We will continue the patient on dexamethasone 6 mg once a day iv route -We will continue the patient on baricitinib 4 mg per oral route once a day -FiO2 requirement has slightly improved from 100% to 85%, patient tolerating CPAP well 2. Elevated troponins -Down trended, likely type II leak 3. Uncontrolled blood sugars -Continue sliding scale insulin. 4. Acute kidney injury - resolved 5. Hyponatremia -Improving
[2021-01-26] MEDS ORDERED: Acetaminophen 325 MG Tab PO PRN (18:37)
[2021-01-26] MEDS: REMDESIVIR 100 MG in Sodium Chloride 0.9% 100 ML IV SCH (19:29)
[2021-01-26] MEDS: Albuterol/Ipratropium 3.0-0.5 MG/3 ML Neb Soln NEB PRN ×2 (19:34→23:57)
[2021-01-26] MEDS: Insulin Glargine,Human Rec. Analog 100 Units/ML 3 ML Pen SUBCUT SCH (20:39)
[2021-01-26] MEDS ORDERED: DEXMEDETOMIDINE IV SCH ×4 (22:15→22:47)
[2021-01-26] MEDS ORDERED: NACL IV SCH ×4 (22:15→22:47)
[2021-01-26] MEDS ORDERED: SODIUM CHLORIDE IV SCH ×2 (22:47)
[2021-01-27] MEDS: Insulin Aspart 100 Units/ML 3 ML Pen SUBCUT SCH ×3 (00:32→08:43)
--- NOTE | 2021-01-27 02:13 | CR ---
Indication: COVID-19, dyspnea Technique: Chest 1 view Comparison: January 23, 2021 Findings/Impression: Stable cardiomegaly. Improved aeration of the lungs compared to the prior exam. No new focal infiltrate, effusion, pneumothorax. Dictated by Arianne Rocha MD @ 01/27/2021 2:11:37 AM (Electronically Signed)
[2021-01-27] MEDS ORDERED: Morphine 2 MG/ML SYRINGE IVPUSH ONE (02:48)
[2021-01-27] MEDS: Albuterol/Ipratropium 4 GM Inhalation Spray INH SCH ×3 (02:49→11:57)
--- NOTE | 2021-01-27 02:55 | PN ---
THC Physician - Brief Progress [id number]/08/2021 02:50[facility] Ian [place], [place] - FIDENCIO (JUAN) - [facility]EROS COVID+Date of Service 01/27/2021 02:50HPI/Ev ents of Note eICU on-callReceived a call to address regarding hypoxemia and increased work of breathi ng, the patient is currently on CPAP 14 100% FiO2. Respiratory rate around 24 to 28/min. Chest x-ra y was performed tonight showed bilateral pulmonary opacities element of volume overload. ABG was per formed that showed pH 7.44, PCO2 35, PO2 56, bicarb 19171% FiO2.Plan:-Continue Precedex drip at 1.4 m cg/kg/h-Morphine 2 mg IV x1 dose now-Lasix 40 mg target net -500 to 1 L daily-Patient is hyperglycemi c glucose greater than 350, increased Lantus to 30 units daily and adjusted sliding scale to every 4 hours-Discussed with XOCHILT MartinezInterventions Major-Hyperglycemia - active titration of insulin therapy , Hypoxemia - evaluation and management, Respiratory failure - evaluation and managementElectronicall y Signed by: Vj Black) on 01/27/2021 02:55
[2021-01-27] MEDS: Furosemide 40 MG/4 ML VIAL IVPUSH SCH ×2 (03:03→10:22)
[2021-01-27] MEDS: Albuterol/Ipratropium 3.0-0.5 MG/3 ML Neb Soln NEB PRN (04:44)
[2021-01-27] MEDS ORDERED: propofoL 100 ML ONE (06:22)
--- NOTE | 2021-01-27 06:30 | PN ---
TOMAS Physician - Brief Progress [id number]/08/2021 06:21[facility] Ian [place], [place] - FIDENCIO (JUAN) - FIDENCIO TANSAHRA MADERAADRIAN Luna+Date of Service 01/27/2021 06:21HPI/Ev ents of Note eICU on-callPatient condition deteriorated on CPAP 1400% FiO2, oxygen saturation 76%. R T switched him to BiPAP 16/12 oxygen saturation up to 88% blood tidal volume 2300 mL. Patient is in respiratory distress and using accessory muscles for breathing.eICU recommendations:-Anesthesia consu lt for intubation-Vent setting PRVC rate 30, tidal volume 500, PEEP 14, FiO2 100%-Vent bundle, chlorh exidine mouthwashes, stress ulcer prophylaxis-Sedation with propofol and fentanyl, may need neuromusc ular blockers-ABG, chest x-ray post intubationDiscussed with bedside ICU nursing staff and RT.Interve ntions Major-Hypoxemia - evaluation and management, Respiratory failure - evaluation and managementEl ectronically Signed by: Vj Black) on 01/27/2021 06:30
[2021-01-27] MEDS ORDERED: fentaNYL/Normal Saline 2,500 MCG in Premix Bag 1 BAG IV SCH (06:45)
[2021-01-27] MEDS ORDERED: Lidocaine 2% 5 ML SDV ONE ×2 (06:46→07:35)
[2021-01-27] MEDS ORDERED: Propofol 200 MG/20 ML SDV ONE (06:46)
[2021-01-27] MEDS ORDERED: Rocuronium Bromide 50 MG/5 ML Syringe ONE ×2 (06:46→07:37)
[2021-01-27] MEDS ORDERED: fentaNYL 100 MCG/2 ML SDV ONE (06:46)
[2021-01-27 06:55] LABS: BLOOD UREA NITROGEN,BUN 31 mg/dL (7.0-18.0); CARBON DIOXIDE,CO2 25.2 mmol/L (21.0-32.0); CHLORIDE,CL 99 mmol/L (98-107); GLUCOSE RANDOM 365 mg/dL (74-106); POTASSIUM,K 4.9 mmol/L (3.5-5.1); SODIUM,NA 133 mmol/L (136-148)
[2021-01-27] MEDS: propofoL 100 ML IV SCH ×2 (07:20→11:07)
--- NOTE | 2021-01-27 07:26 | PCM.PR.ETI ---
Endotracheal Intubation - Endotracheal Intubation Time of Intubation: 07:05 ET Intubation Indication: Respiratory Failure Preparation: Suction, Balloon Tested, BVM Set Up, Difficult Airway Equip Airway Assessment: Obese, Large Tongue Pre-Oxygenation: Assisted with BVM, 100% FiO2 Anesthesia Meds: Fentanyl (100 mcg), Lidocaine (100 mg), Propofol (200 mg), Rocuronium (50 mg) Placement: Orotracheal, Cuffed, Uncomplicated Placement Cords Visualized: Yes, Grade 1 ETT Size In mm: 7.5 (glide scope #4) Number of Attempts: 1 Confirmed By: CO2 Indicator, Bilateral Breath Sounds Tube Secured By: By RT (secured at 23 cm at lips)
--- NOTE | 2021-01-27 07:56 | CR ---
Indication: Post intubation Comparison: Single-view chest January 23, 2021 Technique: Single AP view chest Findings: There is hyperinflation and chronic interstitial change. There are airspace opacities in the bilateral hemithoraces likely representing multifocal infiltrates and/or pulmonary edema. Satisfactory position of endotracheal tube in the proximal trachea. The cardiac silhouette is stably enlarged. The bony thorax is grossly intact. Impression: Satisfactory position of endotracheal tube with overall worsening pulmonary edema and air multifocal infiltrates from comparison. Dictated by Damon Mathur MD @ 01/27/2021 7:55:22 AM (Electronically Signed)
--- NOTE | 2021-01-27 08:42 | PCM.SN.2 ---
Time Documentation - Time Based Documentation Total Time Spent on the Date of the Encounter (Minutes): 30 Time Includes the Following: Time Spent [id number] with the Patient, Communication with Other Health Paper Box Maker, Counseling/Education, Eletronic Documentation, Records Reviewed/Chart Prep Arterial Line Insertion - Arterial Line Insertion Arterial Line Indication: hemodynamic monitoring Site: radial (R) Allens test: negative Prep: CDC/MBT Guidelines, Sterile Drapes, Chlorhexidine Gauge: 20Fr Local Anesthesia - Lidocaine (Xylocaine): 2% Plain Local Anesthetic Volume: 2cc Ultrasound guided: No Secured with suture: No Dressing applied: by provider Complications: No
--- NOTE | 2021-01-27 08:43 | CR ---
Indication: Confirmation of central catheter placement Comparison: Single-view chest January 27, 2021 Technique: Single AP view chest Findings: Stable endotracheal tube. Interval placement nasogastric tube in satisfactory position within the gastric lumen. Interval placement of left subclavian central venous catheter with the tip in the superior vena cava. The partially visualized lungs again demonstrate extensive pulmonary edema with left basilar pleural effusion. There is no left-sided pneumothorax. The cardiac silhouette is enlarged. The bony thorax is grossly intact. Impression: Satisfactory position of support lines and tubes with unchanged extensive pulmonary edema and pleural effusions. Dictated by Damon Mathur MD @ 01/27/2021 8:42:06 AM (Electronically Signed)
--- NOTE | 2021-01-27 08:43 | PCM.SN.2 ---
Central Line Insertion - Central Line Insertion Prep: CDC/MBT Guidelines, Sterile Drapes, Chlorhexidine Lumen: triple Gauge: 7Fr Local Anesthesia - Lidocaine (Xylocaine): 2% Plain Local Anesthetic Volume: 4cc Ultrasound guided: No Micropuncture kit used: No CL Complications: No Secured with suture: Yes Post placement confirmation: CXR, all ports aspirated, all ports flushed CXR post-procedure: no pneumothorax Dressing applied: by provider, chlorhexidine disc used, op-site dressing
[2021-01-27] MEDS ORDERED: Insulin Glargine,Human Rec. Analog 100 Units/ML 3 ML Pen SUBCUT SCH (09:00)
[2021-01-27] MEDS ORDERED: 50% Dextrose in Water 50 ML Syringe IVPUSH PRN (10:00)
[2021-01-27] MEDS ORDERED: Glucagon,Human Recombinant 1 MG Vial IM PRN (10:00)
[2021-01-27] MEDS ORDERED: Insulin Glargine,Human Rec. Analog 100 Units/ML 3 ML Pen SUBCUT ONE (10:02)
[2021-01-27] MEDS: Enoxaparin 150 MG/1 ML Syringe SUBCUT SCH (10:05)
[2021-01-27] MEDS: Dexamethasone 4 MG/ML SDV IVPUSH SCH (10:05)
[2021-01-27] MEDS: Pantoprazole 40 MG in Sodium Chloride 0.9% 10 ML IV SCH (10:05)
--- NOTE | 2021-01-27 11:04 | PCM.DCSUM1 ---
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 Throughout the patient's hospital course he has had worsening of his oxygen demand and has been both on CPAP and BiPAP at max levels. He was treated with dexamethasone, remdesivir, baricitinib, Combivent, and duo nebulizer treatments. The eICU was also contacted on multiple occasions in order to adjust this treatment based on his fluctuating clinical picture. Due to the risk of barotrauma and declining respiratory function, the patient was intubated this morning. Throughout his hospital course he also had his troponins checked which were initially elevated, but with continuous monitoring they are now downtrending. With respect to his current intubation status, a transfer bed has been found at the [facility], where he will be transferred via air ambulance, and the accepting physician is who will assume responsibility for this patient moving forward. The of the patient has been informed of her 's worsening clinical status, grim prognosis, and need for transfer. - Discharge Data Discharge Date: 01/27/21 Discharge Disposition: DC/Tfer to Acute Hospital 02 Condition: Fair - Referral to Home Health Primary Care Physician: PCP None - Discharge Diagnosis/Problem(s) (1) MIS (acute kidney injury) SNOMED Code(s): 58401394, [id number] ICD Code: N17.9 - ACUTE KIDNEY FAILURE, UNSPECIFIED Status: Acute Current Visit: Yes (2) Hyponatremia SNOMED Code(s): 00136157 ICD Code: E87.1 - HYPO-OSMOLALITY AND HYPONATREMIA Status: Acute Current Visit: Yes (3) Uncontrolled blood glucose SNOMED Code(s): 04466933, 655556195 ICD Code: R73.09 - OTHER ABNORMAL GLUCOSE Status: Acute Current Visit: Yes (4) COVID-19 SNOMED Code(s): 438537152 ICD Code: U07.1 - COVID-19 Status: Acute Current Visit: Yes (5) Constipation SNOMED Code(s): 85474624 ICD Code: K59.00 - CONSTIPATION, UNSPECIFIED Status: Acute Current Visit: Yes - Discharge Plan Home Medications: Home Meds . [No Known Home Meds] 03/23/20 [History] Forms: ED Department Discharge Referrals: PCP,None [Primary Care Provider] - - Discharge Summary/Plan Comment DC Time >30 min.: Yes Total # of Minutes for Discharge Time: 35 minutes - Review of Systems General: Reports: Other (The patient is intubated and cannot answer any questions) - Patient Data Vitals - Most Recent: Last Vital Signs Temp 98.4 F 01/27/21 04:00 Pulse 91 01/24/21 21:00 Resp 39 H 01/27/21 07:00 BP 131/75 01/27/21 07:00 Pulse Ox 78 L 01/27/21 07:00 Weight - Most Recent: 355 lb I&O - Last 24 hours: Intake & Output 01/26/21 01/27/21 01/27/21 22:59 06:59 14:59 Intake Total 1700 300 Output Total 1750 1100 Balance -50 -800 Lab Results - Last 24 hrs: Laboratory Results - last 24 hr 01/26/21 01/26/21 01/26/21 Range/Units 08:12 13:17 18:08 WBC (4.0-11.0) K/uL RBC (4.50-5.90) M/uL Hgb (13.0-17.0) g/dL Hct (38.0-50.0) % MCV (80.0-98.0) fL MCH (27.0-32.0) pg MCHC (31.0-37.0) g/dL RDW Std Deviation (28.0-62.0) fl RDW Coeff of Linda (11.0-15.0) % Plt Count (150-400) K/uL MPV (7.40-12.00) fL Add Manual Diff Neutrophils % (Manual) (48.0-80.0) % Band Neutrophils % % Lymphocytes % (Manual) (16.0-40.0) % Monocytes % (Manual) (0.0-15.0) % Nucleated RBC % /100WBC Absolute Seg Neuts (1.4-5.7) Band Neutrophils # Lymphocytes # (Manual) (0.6-2.4) Monocytes # (Manual) (0.0-0.8) Nucleated RBCs # K/uL ABG pH (7.35-7.45) ABG pCO2 (35-45) mmHG ABG pO2 (80-105) mmHG ABG HCO3 (22-26) mEq/L ABG Total CO2 (23-27) mmol/L ABG Base Excess (-2.0-3.0) Sodium (136-148) mmol/L Potassium (3.5-5.1) mmol/L Chloride (98-107) mmol/L Carbon Dioxide (21.0-32.0) mmol/L BUN (7.0-18.0) mg/dL Creatinine (0.8-1.3) mg/dL Est Cr Clr Drug Dosing mL/min Estimated GFR (MDRD) ml/min Glucose (74-106) mg/dL POC Glucose 276 H 299 H 333 H (70-99) mg/dL Calcium (8.5-10.1) mg/dL Phosphorus (2.6-4.7) mg/dL Magnesium (1.8-2.4) mg/dL Total Bilirubin (0.2-1.0) mg/dL AST (15-37) IU/L ALT (14-63) IU/L Alkaline Phosphatase (46-116) U/L Total Protein (6.4-8.2) g/dL Albumin (3.4-5.0) g/dL Globulin (2.6-4.0) g/dL Albumin/Globulin Ratio (0.9-1.6) 01/26/21 01/27/21 01/27/21 Range/Units 20:03 00:26 02:05 WBC (4.0-11.0) K/uL RBC (4.50-5.90) M/uL Hgb (13.0-17.0) g/dL Hct (38.0-50.0) % MCV (80.0-98.0) fL MCH (27.0-32.0) pg MCHC (31.0-37.0) g/dL RDW Std Deviation (28.0-62.0) fl RDW Coeff of Linda (11.0-15.0) % Plt Count (150-400) K/uL MPV (7.40-12.00) fL Add Manual Diff Neutrophils % (Manual) (48.0-80.0) % Band Neutrophils % % Lymphocytes % (Manual) (16.0-40.0) % Monocytes % (Manual) (0.0-15.0) % Nucleated RBC % /100WBC Absolute Seg Neuts (1.4-5.7) Band Neutrophils # Lymphocytes # (Manual) (0.6-2.4) Monocytes # (Manual) (0.0-0.8) Nucleated RBCs # K/uL ABG pH 7.44 (7.35-7.45) ABG pCO2 35 (35-45) mmHG ABG pO2 56 L (80-105) mmHG ABG HCO3 24 (22-26) mEq/L ABG Total CO2 20.7 L (23-27) mmol/L ABG Base Excess 0.3 (-2.0-3.0) Sodium (136-148) mmol/L Potassium (3.5-5.1) mmol/L Chloride (98-107) mmol/L Carbon Dioxide (21.0-32.0) mmol/L BUN (7.0-18.0) mg/dL Creatinine (0.8-1.3) mg/dL Est Cr Clr Drug Dosing mL/min Estimated GFR (MDRD) ml/min Glucose (74-106) mg/dL POC Glucose 315 H 345 H (70-99) mg/dL Calcium (8.5-10.1) mg/dL Phosphorus (2.6-4.7) mg/dL Magnesium (1.8-2.4) mg/dL Total Bilirubin (0.2-1.0) mg/dL AST (15-37) IU/L ALT (14-63) IU/L Alkaline Phosphatase (46-116) U/L Total Protein (6.4-8.2) g/dL Albumin (3.4-5.0) g/dL Globulin (2.6-4.0) g/dL Albumin/Globulin Ratio (0.9-1.6) 01/27/21 01/27/21 01/27/21 Range/Units 03:43 05:58 05:58 WBC 7.17 (4.0-11.0) K/uL RBC 5.30 (4.50-5.90) M/uL Hgb 16.1 (13.0-17.0) g/dL Hct 45.7 (38.0-50.0) % MCV 86.2 (80.0-98.0) fL MCH 30.4 (27.0-32.0) pg MCHC 35.2 (31.0-37.0) g/dL RDW Std Deviation 42.0 (28.0-62.0) fl RDW Coeff of Linda 13 (11.0-15.0) % Plt Count 108 L (150-400) K/uL MPV 11.00 (7.40-12.00) fL Add Manual Diff YES Neutrophils % (Manual) 72 (48.0-80.0) % Band Neutrophils % 14 % Lymphocytes % (Manual) 10 L (16.0-40.0) % Monocytes % (Manual) 4 (0.0-15.0) % Nucleated RBC % 0.0 /100WBC Absolute Seg Neuts 5.2 (1.4-5.7) Band Neutrophils # 1.0 Lymphocytes # (Manual) 0.7 (0.6-2.4) Monocytes # (Manual) 0.3 (0.0-0.8) Nucleated RBCs # 0 K/uL ABG pH (7.35-7.45) ABG pCO2 (35-45) mmHG ABG pO2 (80-105) mmHG ABG HCO3 (22-26) mEq/L ABG Total CO2 (23-27) mmol/L ABG Base Excess (-2.0-3.0) Sodium 133 L (136-148) mmol/L Potassium 4.9 (3.5-5.1) mmol/L Chloride 99 (98-107) mmol/L Carbon Dioxide 25.2 (21.0-32.0) mmol/L BUN 31 H (7.0-18.0) mg/dL Creatinine 1.2 (0.8-1.3) mg/dL Est Cr Clr Drug Dosing 76.34 mL/min Estimated GFR (MDRD) > 60.0 ml/min Glucose 365 H (74-106) mg/dL POC Glucose 375 H (70-99) mg/dL Calcium 7.6 L (8.5-10.1) mg/dL Phosphorus 2.6 (2.6-4.7) mg/dL Magnesium 2.5 H (1.8-2.4) mg/dL Total Bilirubin 1.1 H (0.2-1.0) mg/dL AST 52 H (15-37) IU/L ALT 48 (14-63) IU/L Alkaline Phosphatase 107 (46-116) U/L Total Protein 6.7 (6.4-8.2) g/dL Albumin 2.1 L (3.4-5.0) g/dL Globulin 4.6 H (2.6-4.0) g/dL Albumin/Globulin Ratio 0.5 L (0.9-1.6) 01/27/21 01/27/21 Range/Units 06:47 08:36 WBC (4.0-11.0) K/uL RBC (4.50-5.90) M/uL Hgb (13.0-17.0) g/dL Hct (38.0-50.0) % MCV (80.0-98.0) fL MCH (27.0-32.0) pg MCHC (31.0-37.0) g/dL RDW Std Deviation (28.0-62.0) fl RDW Coeff of Linda (11.0-15.0) % Plt Count (150-400) K/uL MPV (7.40-12.00) fL Add Manual Diff Neutrophils % (Manual) (48.0-80.0) % Band Neutrophils % % Lymphocytes % (Manual) (16.0-40.0) % Monocytes % (Manual) (0.0-15.0) % Nucleated RBC % /100WBC Absolute Seg Neuts (1.4-5.7) Band Neutrophils # Lymphocytes # (Manual) (0.6-2.4) Monocytes # (Manual) (0.0-0.8) Nucleated RBCs # K/uL ABG pH 7.49 H (7.35-7.45) ABG pCO2 34 L (35-45) mmHG ABG pO2 54 L (80-105) mmHG ABG HCO3 25 (22-26) mEq/L ABG Total CO2 21.7 L (23-27) mmol/L ABG Base Excess 2.5 (-2.0-3.0) Sodium (136-148) mmol/L Potassium (3.5-5.1) mmol/L Chloride (98-107) mmol/L Carbon Dioxide (21.0-32.0) mmol/L BUN (7.0-18.0) mg/dL Creatinine (0.8-1.3) mg/dL Est Cr Clr Drug Dosing mL/min Estimated GFR (MDRD) ml/min Glucose (74-106) mg/dL POC Glucose 270 H (70-99) mg/dL Calcium (8.5-10.1) mg/dL Phosphorus (2.6-4.7) mg/dL Magnesium (1.8-2.4) mg/dL Total Bilirubin (0.2-1.0) mg/dL AST (15-37) IU/L ALT (14-63) IU/L Alkaline Phosphatase (46-116) U/L Total Protein (6.4-8.2) g/dL Albumin (3.4-5.0) g/dL Globulin (2.6-4.0) g/dL Albumin/Globulin Ratio (0.9-1.6) BUSHRA Results - Last 24 hrs: Microbiology 01/23/21 19:36 Aerobic Blood Culture - Preliminary Blood - Venous - Lab Draw NO GROWTH AFTER 3 DAYS Anaerobic Blood Culture - Preliminary NO GROWTH AFTER 3 DAYS 01/23/21 19:20 Aerobic Blood Culture - Preliminary Blood - Venous NO GROWTH AFTER 3 DAYS Anaerobic Blood Culture - Preliminary NO GROWTH AFTER 3 DAYS Med Orders - Current: Current Medications Acetaminophen (Acetaminophen 325 Mg Tab) 650 mg PO Q4H PRN PRN Reason: Pain/Fever Last Admin: 01/26/21 18:53 Dose: 650 mg Documented by: Albuterol/Ipratropium (Albuterol/Ipratropium 4 Gm Inhalation [place]) 1 - 2 gm INH Q4H [facility]ISCO Last Admin: 01/27/21 07:22 Dose: Not Given Documented by: Albuterol/Ipratropium (Albuterol/Ipratropium 3.0-0.5 Mg/3 Ml Neb Soln) 3 ml NEB Q4HRRT PRN PRN Reason: Dyspnea Last Admin: 01/27/21 04:44 Dose: 3 ml Documented by: Baricitinib (Baricitinib 2 Mg Tab) 4 mg PO DAILY [facility] FRANCISCO Last Admin: 01/27/21 10:21 Dose: Not Given Documented by: Benzonatate (Benzonatate 100 Mg Cap) 100 mg PO Q6H PRN PRN Reason: Cough Dexamethasone (Dexamethasone 4 Mg/Ml Sdv) 6 mg IVPUSH DAILY [facility]CO Last Admin: 01/27/21 10:05 Dose: 6 mg Documented by: Dextrose/Water (50% Dextrose In Water 50 Ml Syringe) 50 ml IVPUSH ASDIRECTED PRN PRN Reason: Hypoglycemia Docusate Sodium (Docusate Sodium 100 Mg Cap) 100 mg PO Q12H PRN PRN Reason: Constipation Enoxaparin Sodium (Enoxaparin 150 Mg/1 Ml Syringe) 150 mg SUBCUT Q12H [facility] Last Admin: 01/27/21 10:05 Dose: 150 mg Documented by: Furosemide (Furosemide 40 Mg/4 Ml Vial) 40 mg IVPUSH DAILY [facility]CO Last Admin: 01/27/21 10:22 Dose: 40 mg Documented by: Glucagon (Glucagon,Human Recombinant 1 Mg Vial) 1 mg IM ASDIRECTED PRN PRN Reason: Hypoglycemia Guaifenesin (Guaifenesin 100 Mg/5 Ml Soln 5 Ml Ud Cup) 200 mg PO Q4H PRN PRN Reason: Cough Pantoprazole Sodium 40 mg/ (Sodium Chloride) 10 mls @ 300 mls/hr IV DAILY [facility]CO Last Admin: 01/27/21 10:05 Dose: 300 mls/hr Documented by: Remdesivir 100 mg/ Sodium (Chloride) 100 mls @ 100 mls/hr IV Q24H [facility]CO Stop: 01/27/21 20:59 Last Admin: 01/26/21 19:29 Dose: 100 mls/hr Documented by: Dexmedetomidine/Sodium (Chloride 400 mcg/ Premix) 100 mls @ 8.094 mls/hr IV TITRATE [facility]ANCISCO; Protocol Last Admin: 01/27/21 10:11 Dose: 1.4 mcg/kg/hr, 56.66 mls/hr Documented by: Fentanyl Citrate 2,500 mcg/ (Premix) 250 mls @ 10 mls/hr IV TITRATE JOSE FRANCISCO; Pr otocol Propofol (Diprivan 100 Ml) 100 mls @ 5 mls/hr IV TITRATE [facility] FRANCISCO; Protocol Insulin Aspart (Insulin Aspart 100 Units/Ml 3 Ml Pen) 0 unit SUBCUT Q4HR [facility]; Protocol Last Admin: 01/27/21 08:43 Dose: 9 units Documented by: Insulin Glargine (Insulin Glargine,Human Rec. Analog 100 Units/Ml 3 Ml Pen) 10 units SUBCUT BEDTIME [facility] Last Admin: 01/26/21 20:39 Dose: 10 units Documented by: Insulin Glargine (Insulin Glargine,Human Rec. Analog 100 Units/Ml 3 Ml Pen) 30 units SUBCUT DAILY [facility] Last Admin: 01/27/21 10:20 Dose: Not Given Documented by: Discontinued Medications Aspirin (Aspirin 81 Mg Tab.Chew) 324 mg PO ONETIME ONE Stop: 01/23/21 19:58 Last Admin: 01/23/21 20:20 Dose: 324 mg Documented by: Dexamethasone (Dexamethasone 4 Mg/Ml Sdv) 6 mg IVPUSH ONETIME ONE Stop: 01/23/21 19:59 Last Admin: 01/23/21 20:52 Dose: 6 mg Documented by: Dexamethasone (Dexamethasone 4 Mg Tab) 6 mg PO Q14H [facility] Last Admin: 01/24/21 20:42 Dose: 6 mg Documented by: Dexamethasone (Dexamethasone 4 Mg Tab) 6 mg PO Q24H [facility] Dextrose/Water (50% Dextrose In Water 50 Ml Syringe) 50 ml IVPUSH ASDIRECTED PRN PRN Reason: Hypoglycemia Dextrose/Water (50% Dextrose In Water 50 Ml Syringe) 50 ml IVPUSH ASDIRECTED PRN PRN Reason: Hypoglycemia Dextrose/Water (50% Dextrose In Water 50 Ml Syringe) 50 ml IVPUSH ASDIRECTED PRN PRN Reason: Hypoglycemia Fentanyl (Fentanyl 100 Mcg/2 Ml Sdv) Confirm Administered Dose 100 mcg .ROUTE .STK-MED ONE Stop: 01/27/21 06:47 Glucagon (Glucagon,Human Recombinant 1 Mg Vial) 1 mg IM ASDIRECTED PRN PRN Reason: Hypoglycemia Glucagon (Glucagon,Human Recombinant 1 Mg Vial) 1 mg IM ASDIRECTED PRN PRN Reason: Hypoglycemia Glucagon (Glucagon,Human Recombinant 1 Mg Vial) 1 mg IM ASDIRECTED PRN PRN Reason: Hypoglycemia Heparin Sodium (Porcine) (Heparin Sodium 5,000 Units/Ml Vial) 4,000 units IVPUSH .BOLUS ONE; Protocol Stop: 01/23/21 19:58 Last Admin: 01/23/21 20:53 Dose: 4,000 units Documented by: Heparin Sodium (Porcine) (Heparin Sodium 5,000 Units/Ml Vial) 0 units IVPUSH .BOLUS ONE Stop: 01/24/21 13:33 Last Admin: 01/24/21 14:04 Dose: 1,000 units Documented by: Heparin Sodium (Porcine) (Heparin Sodium 5,000 Units/Ml Vial) 1,000 units IVPUSH ONETIME ONE Stop: 01/25/21 01:54 Last Admin: 01/25/21 02:03 Dose: 1,000 units Documented by: Heparin Sodium/Sodium Chloride (Heparin 25,000 Units In 1/2 Ns 500 Ml) 500 mls @ 37.776 mls/hr IV TITRATE [facility]; Protocol Stop: 01/25/21 10:15 Last Titration: 01/25/21 02:08 Dose: 16 units/kg/hr, 50.368 mls/hr Documented by: Remdesivir 200 mg/ Sodium (Chloride) 250 mls @ 250 mls/hr IV ONETIME ONE Stop: 01/23/21 19:59 Last Admin: 01/23/21 20:57 Dose: 250 mls/hr Documented by: Sodium Chloride (Normal Saline) 1,000 mls @ 125 mls/hr IV .Bolus ONE Stop: 01/24/21 05:33 Last Admin: 01/23/21 21:41 Dose: 125 mls/hr Documented by: Insulin Regular in 0.9 % NACL (Myxredlin In Ns 100 Unit/100 Ml) 100 mls @ 15.74 mls/hr IV TITRATE [facility]; Protocol Last Titration: 01/24/21 05:37 Dose: 0.07 units/kg/hr, 11.8 mls/hr Documented by: Tocilizumab 800 mg/ Sodium (Chloride) 140 mls @ 140 mls/hr IV ONETIME ONE Stop: 01/24/21 03:58 Last Admin: 01/24/21 21:14 Dose: Not Given Documented by: Insulin Regular in 0.9 % NACL (Myxredlin In Ns 100 Unit/100 Ml) 100 mls @ 6 mls/hr IV TITRATE [facility]; Protocol Stop: 01/25/21 09:45 Last Titration: 01/25/21 00:46 Dose: 3 unit/hr, 3 mls/hr Documented by: Dexmedetomidine/Sodium Chloride 400 mcg/Dexmedetomidine/Sodium Chloride 200 mls @ 16.189 mls/hr IV TITRATE [facility]; Protocol Dexmedetomidine/Sodium Chloride 400 mcg/ Sodium Chloride 200 mls @ 16.189 mls/hr IV TITRATE [facility]; Protocol Propofol (Diprivan 100 Ml) Confirm Administered Dose 100 mls @ as directed .ROUTE .STK-MED ONE Stop: 01/27/21 06:23 Norepinephrine Bitartrate (Norepinephr-0.9% Nacl 4 Mg/250) Confirm Administered Dose 4 mg in 250 mls @ as directed IV .STK-MED ONE Stop: 01/27/21 06:26 Insulin Aspart (Insulin Aspart 100 Units/Ml 3 Ml Pen) 0 unit SUBCUT TIDAC [facility]; Protocol Last Admin: 01/26/21 08:22 Dose: 9 units Documented by: Insulin Aspart (Insulin Aspart 100 Units/Ml 3 Ml Pen) 0 unit SUBCUT Q6H [facility]; Protocol Last Admin: 01/27/21 00:32 Dose: 12 units Documented by: Insulin Glargine (Insulin Glargine,Human Rec. Analog 100 Units/Ml 3 Ml Pen) 10 units SUBCUT DAILY ONE Stop: 01/25/21 10:16 Last Admin: 01/25/21 10:40 Dose: 10 units Documented by: Insulin Glargine (Insulin Glargine,Human Rec. Analog 100 Units/Ml 3 Ml Pen) 15 units SUBCUT DAILY [facility] Last Admin: 01/26/21 09:03 Dose: 15 units Documented by: Insulin Glargine (Insulin Glargine,Human Rec. Analog 100 Units/Ml 3 Ml Pen) 15 units SUBCUT ONETIME ONE Stop: 01/27/21 10:03 Last Admin: 01/27/21 10:17 Dose: 15 units Documented by: Insulin Human Regular (Insulin Regular, Human 100 Units/Ml 10 Ml Vial) 5 unit IVPUSH ONETIME ONE; Protocol Stop: 01/23/21 19:58 Last Admin: 01/23/21 21:07 Dose: 5 unit Documented by: Insulin Human Regular (Insulin Regular, Human 100 Units/Ml 10 Ml Vial) 5 unit IVPUSH ONETIME ONE; Protocol Stop: 01/24/21 01:11 Last Admin: 01/24/21 01:15 Dose: 5 units Documented by: Insulin Human Regular (Insulin Regular, Human 100 Units/Ml 10 Ml Vial) 10 unit IVPUSH ONETIME ONE; Protocol Stop: 01/24/21 03:35 Last Admin: 01/24/21 03:44 Dose: 10 units Documented by: Iopamidol (Iopamidol 755 Mg/Ml 500 Ml Multipack Bottle) 50 ml IVPUSH ONETIME STA Stop: 01/24/21 01:53 Last Admin: 01/24/21 01:54 Dose: 50 ml Documented by: Lidocaine (Lidocaine 2% 5 Ml Sdv) Confirm Administered Dose 5 ml .ROUTE .STK-MED ONE Stop: 01/27/21 06:47 Lidocaine (Lidocaine 2% 5 Ml Sdv) Confirm Administered Dose 5 ml .ROUTE .STK-MED ONE Stop: 01/27/21 07:36 Morphine Sulfate (Morphine 2 Mg/Ml Syringe) 2 mg IVPUSH ONETIME ONE Stop: 01/27/21 02:49 Last Admin: 01/27/21 03:02 Dose: 2 mg Documented by: Propofol (Propofol 200 Mg/20 Ml Sdv) Confirm Administered Dose 200 mg .ROUTE .STK-MED ONE Stop: 01/27/21 06:47 Rocuronium Urich (Rocuronium Urich 50 Mg/5 Ml Syringe) Confirm Administered Dose 50 mg .ROUTE .STK-MED ONE Stop: 01/27/21 06:47 Rocuronium Urich (Rocuronium Urich 50 Mg/5 Ml Syringe) Confirm Administered Dose 50 mg .ROUTE .STK-MED ONE Stop: 01/27/21 07:38 Sodium Chloride (Sodium Chloride 0.9% 10 Ml Syringe) 10 ml FLUSH ASDIRECTED PRN PRN Reason: Keep Vein Open Last Admin: 01/23/21 19:35 Dose: 10 ml Documented by: Sodium Chloride (Sodium Chloride 0.9% 2.5 Ml Syringe) 2.5 ml FLUSH ASDIRECTED PRN PRN Reason: Keep Vein Open Last Admin: 01/23/21 19:35 Dose: 2.5 ml Documented by: - Exam General: Reports: Other (Patient is intubated) HEENT: Reports: Mucous Membr. Moist/[place] Neck: Reports: Trachea Midline Lungs: Reports: Other (The patient is intubated) Cardiovascular: Reports: Regular Rate, Regular Rhythm GI/Abdominal Exam: Normal Bowel Sounds, Soft, Other (Obese body habitus) Extremities: Pedal Edema Discharge Operative/Procedures - Procedures Performed Intubation Indication: Respiratory Failure Arterial Line Indication: hemodynamic monitoring
== END 2021-01-27 12:30 | DRG 137 ==
LOC: MW.ED 18:44 → MW.ICU 01-24 05:08
PROVIDERS: ADMIT Internal Medicine; ATTEND Internal Medicine
PROC: XW033E5 Introduction of Remdesivir Anti-infective into Peripheral Vein, Percutaneous Approach, New Technology Group 5 (ICD-10-PCS; principal; 2021-01-24)
PROC: 3E0333Z Introduction of Anti-inflammatory into Peripheral Vein, Percutaneous Approach (ICD-10-PCS; 2021-01-24)
PROC: 3E0DX3Z Introduction of Anti-inflammatory into Mouth and Pharynx, External Approach (ICD-10-PCS; 2021-01-24)
PROC: 5A09357 Assistance with Respiratory Ventilation, Less than 24 Consecutive Hours, Continuous Positive Airway Pressure (ICD-10-PCS; 2021-01-24)
PROC: 5A09457 Assistance with Respiratory Ventilation, 24-96 Consecutive Hours, Continuous Positive Airway Pressure (ICD-10-PCS; 2021-01-25)
PROC: 0BH18EZ Insertion of Endotracheal Airway into Trachea, Via Natural or Artificial Opening Endoscopic (ICD-10-PCS; 2021-01-27)
PROC: 5A1935Z Respiratory Ventilation, Less than 24 Consecutive Hours (ICD-10-PCS; 2021-01-27)
PROC: 03HB33Z Insertion of Infusion Device into Right Radial Artery, Percutaneous Approach (ICD-10-PCS; 2021-01-27)
PROC: 3E033XZ Introduction of Vasopressor into Peripheral Vein, Percutaneous Approach (ICD-10-PCS; 2021-01-27)
PROC: 02HV33Z Insertion of Infusion Device into Superior Vena Cava, Percutaneous Approach (ICD-10-PCS; 2021-01-27)
DX: U07.1 COVID-19 (principal); J12.82 Pneumonia due to coronavirus disease 2019; N17.9 Acute kidney failure, unspecified; E87.1 Hypo-osmolality and hyponatremia; K59.00 Constipation, unspecified; J96.01 Acute respiratory failure with hypoxia; R73.09 Other abnormal glucose; E66.01 Morbid (severe) obesity due to excess calories; Z68.42 Body mass index [BMI] 45.0-49.9, adult
CPT/HCPCS: 31500; 36415; 36556; 36600; 36620; 51702; 71045; 71045-26; 71275; 71275-26; 80048; 80053; 82803; 82947; 83036; 83605; 83735; 83880; 84100; 84484; 85025; 85379; 85610; 85730; 86140; 87040; 94002; 94660; 96374; 96375; 99291; A9270-GY; C9113; J1100; J1644; J1650; J1815; J1815-GY; J1940; J2270; J2704; J3010; J7030; J7050; J7620-GY; J8540; Q9967; U0002